=== PATIENT | female | born 2000 | race Caucasian/White ===

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

== ENCOUNTER 2022-03-29 13:33 | Emergency (ER) | payer MEDICAID, SELFPAY ==
[2022-03-29 14:08] VITALS: BP 109/54; PULSE 74; RESP 16; TEMP 36.9; O2SAT 99
--- NOTE | 2022-03-29 14:30 | DI.RAD_ITS ---
Exam(s) XR HIP LT COMPLETE AP PELVIS XR FEMUR LT EXAM: XR HIP LT COMPLETE AP PELVIS INDICATION: fall/trauma. COMPARISON: CR XR FEMUR LT from 03/29/2022 TECHNIQUE: 2D digital imaging was performed. AP and lateral views of femur. AP pelvis and frog-leg lateral view of the left hip. FINDINGS: There is no evidence of fracture or dislocation. The hip joint and knee joints appear intact. SI jori ints are unremarkable. Pubic symphysis is not widened. IMPRESSION: Negative pelvis and left femur. DATA REPOSITORY: RADIATION DOSE DELIVERED:
--- NOTE | 2022-03-29 14:36 | ED.GENADUL_ITS ---
Discharge Plan Disposition Patient Disposition: Home Condition: Stable Discharge Details Clinical Impression: Contusion of left hip and thigh Primary Care Provider: Unknown,Unknown ED Provider: Jose Casey Home Meds and New Rx's Prescriptions: Continued rizatriptan 10 mg tablet See Rx Instructions PO .COMPLEX Qty: 9 5RF Rx Instructions: take 1 tab at onset of headache; if no relief may repeat 1 tab after at least 2 hrs; max = 3 tabs/24 hr PO albuterol sulfate 1.25 mg/3 mL Solution For Nebulization 1.25 mg continuous nebulization PRN PRN albuterol sulfate [Ventolin HFA] 60 PUFF HFA aerosol inhaler 2 puff Inhalation PRN PRN doxycycline monohydrate 100 mg tablet 1 tab PO DAILY Label Comments: Take 2 tablet by mouth once a day nortriptyline 25 mg capsule 25 mg PO QHS Label Comments: TAKE 1 CAPSULE BY MOUTH EVERY DAY doxycycline monohydrate 100 mg tablet 100 mg PO DAILY Label Comments: Take 2 tablet by mouth once a day Rx Instructions: acne Discharge Instructions Instructions: Contusion in Adults (ED) Additional Instructions: You may continue to use [id number] acetaminophen or ibuprofen as needed for pain. You may apply ice to help with swelling. You may perform activities as tolerated by pain and discomfort but should rest over the next couple days and slowly increase activity as tolerated. If you have any significant worsening of symptoms feel free to return the emergency department and if not improving in the next 1 to 2 weeks follow-up with your primary care provider. Stand Alone Forms: Work Release Referrals: Primary Care Provider [Outside] Discharge Data Discharge Date/Time-TO BE ENTERED AT DEPARTURE: 03/29/22 15:36 Medical Decision Making Patient presenting to the emergency department for chief complaint of fall with injury to left hip and femur. Patient denies of any other injury or trauma. States she was at work and slipped on a wet floor. Physical exam shows significant tenderness to the lateral aspects of the hip and pelvis including the greater trochanter through the mid femur. Patient does have difficulty with weightbearing and range of motion. Suspect significant contusion or subtle fracture. We will perform radiological imaging. Pending results we will give ibuprofen. Review of radiological imaging and radiologist interpretation shows no acute findings noted. Patient was recommended to perform conservative management of discomfort, given work note, and discussed return and follow-up precautions. After discussion of diagnosis and plan of care patient has no further needs, questions, or concerns and states clear understanding to return to the emergency department for any worsening symptoms. This documentation was generated using [employer] dictation system, please disregard any oddities of phrase or misspellings. Imaging Data Radiologic Study: Imaging: X-Ray Radiologist's impression: Exam(s) XR HIP LT COMPLETE AP PELVIS XR FEMUR LT EXAM: XR HIP LT COMPLETE AP PELVIS INDICATION: fall/trauma. COMPARISON: CR XR FEMUR LT from 03/29/2022 TECHNIQUE: 2D digital imaging was performed. AP and lateral views of femur. AP pelvis and frog-leg lateral view of the left hip. FINDINGS: There is no evidence of fracture or dislocation. The hip joint and knee joints appear intact. SI joints are unremarkable. Pubic symphysis is not widened. IMPRESSION: Negative pelvis and left femur. HPI General Mode of arrival: ambulatory . Date/Time Provider Initiated Documentation: 03/29/22 14:15 . Limitations to Documentation: no limitations . Information obtained by: patient and RN notes reviewed . History of Present Ill tre 21 year old F presents to the emergency department with the chief complaint of Fall at work with left hip injury, described as moderate, with intensity rated at 8. Quality is described as sharp, and is localized to the left and lower extremity. Patient reports no radiation. Patient started experiencing this day(s) (1) and it has been constant. Immobilization impro ves symptom(s), and Rest improves symptom(s), Movement worsens symptoms . Patient notes no other symptoms.. Patient did receive the following treatments prior to arrival, none Related Data Home Medications Medication Instructions Recorded Confirmed albuterol sulfate 90 mcg/actuation 2 puff inhalation PRN PRN 07/05/16 03/29/22 aerosol inhaler (Ventolin HFA) albuterol sulfate 1.25 mg/3 mL 1.25 mg continuous nebulization 01/15/21 03/29/22 solution for nebulization PRN PRN rizatriptan 10 mg tablet See Rx Instructions PO .COMPLEX #9 07/19/21 03/29/22 tabs doxycycline monohydrate 100 mg 1 tab PO DAILY 09/30/21 11/20/21 tablet nortriptyline 25 mg capsule 25 mg PO QHS 09/30/21 11/20/21 doxycycline monohydrate 100 mg 100 mg PO DAILY 03/29/22 03/29/22 tablet Previous Rx's Medication Instructions Recorded rizatriptan 10 mg tablet See Rx Instructions PO .COMPLEX #9 07/19/21 tabs Allergies Allergy/AdvReac Type Severity Reaction Status Date / Time omeprazole AdvReac Intermediate Skin Rash Verified 03/29/22 14:12 and diarrhea enviromental Allergy Mild Uncoded 03/29/22 14:12 General Stated Complaint: Orthopedic MARY JANE: 4 Review of Systems Narrative: 8 systems reviewed and unremarkable except what is marked below. Musculoskeletal Musculoskeletal: Reports as per HPI, Reports arthralgias, Reports limited range of motion, Denies muscle weakness, Denies numbness and Denies tingling Neurologic Neurologic: Denies numbness and Denies tingling PFSH All Active Problems (Updated 03/29/22 @ 15:13 by Jose Casey NP) Contusion of left hip and thigh (Acute) Insomnia (Acute) Migraine headache without aura (Acute) Abdominal pain (Acute) Medical History Anxiety Asthma Chest pain Contusion of arm, left Ecchymosis of forearm Right ankle sprain Sprain of left shoulder Sprain of wrist, right Surgical History H/O esophagogastroduodenoscopy Family History Mother Heart disease Stroke Social History Smoking/Tobacco Use Status: Never Smoking risk assessment performed?: Yes Alcohol Intake: never Drug use: Never Substance use type: does not use Household members: family Number of Children: 0 Education Level: high school 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 Exam Const General: cooperative, no acute distress and not ill appearing Orientation: alert, awake and oriented x3 HENMT Mouth: moist mucous membranes Resp Effort & Inspection: normal respiratory effort, able to speak in complete sentences and no respiratory distress Auscultation: clear to auscultation bilaterally Cardio Rate: regular rate Rhythm: regular rhythm Heart Sounds: S1 normal and S2 normal Skin General skin exam: no rashes or lesions noted Neuro General: patient alert, patient awake, patient oriented x3, moves all extremities and no focal motor deficits Sensory Exam: no sensory deficits noted Extrem General: normal exam except as noted Left lower extremity: hip/thigh Details: tenderness Location: of the hip Location: laterally and over the great trochanter, of the proximal upper leg Location: laterally and of the mid upper leg Location: laterally and abnormal ROM Details: held in an abnormal fashion Details: in extension and pain with active ROM Details: with ADduction, with ABduction, with flexion and with internal rotation; no swelling, no ecchymosis and no crepitus, knee Details: normal to inspection and normal ROM; no tenderness, lower leg Details: normal to inspection and ankle Details: normal ROM; no tenderness Course Vital Signs Vital signs: Vital Signs Temperature 36.9 C 03/29/22 14:08 Pulse 74 03/29/22 14:08 Respiratory Rate 16 03/29/22 14:08 Blood Pressure 109/54 L 03/29/22 14:08 Pulse Oximetry 99 03/29/22 14:08 Temperature 36.9 C 03/29/22 14:08 Temperature Source Skin 03/29/22 14:08 Pulse 74 03/29/22 14:08 Respiratory Rate 16 03/29/22 14:08 Respiratory Effort 03/29/22 14:11 Blood Pressure 109/54 L 03/29/22 14:08 Pulse Oximetry 99 03/29/22 14:08 Oxygen Delivery Method Room Air 03/29/22 14:08 Oxygen Flow Rate 0 03/29/22 14:08 Pain Level 8 03/29/22 14:08 Lab/Test Results Lab/Test Results: POC- Test(urine) Negative
[2022-03-29] MEDS: Ibuprofen 600 MG TAB PO (14:40)
== END 2022-03-29 15:36 | disposition home or self-care (01) ==
PROVIDERS: Emergency Provider Nurse Practitioner Family
DX: S70.02XA Contusion of left hip, initial encounter (principal); S70.12XA Contusion of left thigh, initial encounter; W01.0XXA Fall on same level from slipping, tripping and stumbling without subsequent striking against object, initial encounter; Y99.0 Civilian activity done for income or pay
CPT/HCPCS: 73552; 81025; 99284; 73502

== ENCOUNTER 2022-05-10 23:09 | Emergency (ER) | payer MEDICAID, SELFPAY ==
[2022-05-10 23:13] VITALS: BP 112/75; PULSE 75; RESP 16; TEMP 36.6; O2SAT 98
--- NOTE | 2022-05-10 23:29 | W.ED.GENAD ---
Discharge Plan Disposition Patient Disposition: Home Discharge Details Clinical Impression: Hematochezia Primary Care Provider: Unknown,Unknown ED Provider: Flakito Hernandez Home Meds and New Rx's Prescriptions: Continued rizatriptan 10 mg tablet See Rx Instructions PO .COMPLEX Qty: 9 5RF Rx Instructions: take 1 tab at onset of headache; if no relief may repeat 1 tab after at least 2 hrs; max = 3 tabs/24 hr PO albuterol sulfate 1.25 mg/3 mL Solution For Nebulization 1.25 mg continuous nebulization PRN PRN albuterol sulfate [Ventolin HFA] 60 PUFF HFA aerosol inhaler 2 puff Inhalation PRN PRN nortriptyline 25 mg capsule 25 mg PO QHS Patient Comments: TAKE 1 CAPSULE BY MOUTH EVERY DAY No Action doxycycline monohydrate 100 mg tablet 1 tab PO DAILY Patient Comments: Take 2 tablet by mouth once a day doxycycline monohydrate 100 mg tablet 100 mg PO DAILY Patient Comments: Take 2 tablet by mouth once a day Rx Instructions: acne Discharge Instructions Instructions: Rectal Bleeding (ED) Additional Instructions: Home to rest this evening. Please follow-up with gastroenterology for results of your biopsies. Return if you have persistent rectal bleeding, develop a fever, increasing pain, or any other acute concerns. Your work-up in the emergency department had included laboratory analysis and CT imaging. Stand Alone Forms: Work Release Medical Decision Making 21-year-old female who has had some chronic abdominal pain. She underwent colonoscopy at [facility] on Sunday. She describes having 3 biopsies. No report of polyps. She developed crampy abdominal pain over the past 24 hours with passage of a single dark-colored blood clot and stool this afternoon. The patient arrives to the ER with normal vital signs. Exam reveals mild diffuse abdominal tenderness without rebound or guarding. Differential diagnosis would include perforation, infection, mild bleeding from known biopsy sites. Patient had screening laboratories obtained and was referred for CT imaging. Her CBC is normal with a white count of 7, hematocrit 42, platelets 316. Coags unremarkable as are chemistries. CT images: Show no acute findings in the abdomen or pelvis. Patient's pain is improved. She likely had a mild amount of postbiopsy bleeding that is now resolved. She is stable and appropriate for discharge to home. Findings of the work-up were discussed with the patient and her mother prior to discharge HPI General Mode of arrival: ambulatory. Date/Time Provider Initiated Documentation: 05/10/22 23:21. Limitations to Documentation: no limitations. Information obtained by: patient. History of Present Illness 21 year old F presents to the emergency department with the chief complaint of Rectal bleeding, described as mild, and is localized to the abdomen. Patient reports no radiation. Patient started experiencing this hour(s) and it has been intermittent. No relieving factors improve symptom(s), No exacerbating factors reported . Patient notes denies syncope and weakness. Patient did receive the following treatments prior to arrival, none Related Data Home Medications Medication Instructions Recorded Confirmed albuterol sulfate 90 mcg/actuation 2 puff inhalation PRN PRN 07/05/16 03/29/22 aerosol inhaler (Ventolin HFA) albuterol sulfate 1.25 mg/3 mL 1.25 mg continuous nebulization 01/15/21 03/29/22 solution for nebulization PRN PRN rizatriptan 10 mg tablet See Rx Instructions PO .COMPLEX #9 07/19/21 03/29/22 tabs doxycycline monohydrate 100 mg 1 tab PO DAILY 09/30/21 11/20/21 tablet nortriptyline 25 mg capsule 25 mg PO QHS 09/30/21 11/20/21 doxycycline monohydrate 100 mg 100 mg PO DAILY 03/29/22 03/29/22 tablet Previous Rx's Medication Instructions Recorded rizatriptan 10 mg tablet See Rx Instructions PO .COMPLEX #9 07/19/21 tabs Allergies Allergy/AdvReac Type Severity Reaction Status Date / Time omeprazole AdvReac Intermediate Skin Rash Verified 03/29/22 14:12 and diarrhea enviromental Allergy Mild Uncoded 03/29/22 14:12 General Stated Complaint: Abd Prob MARY JANE: 3 Review of Systems Narrative: 6 systems reviewed and otherwise negative PFSH All Active Problems (Updated 05/11/22 @ 03:18 by Flakito Hernandez MD) Hematochezia (Acute) Insomnia (Acute) Migraine headache without aura (Acute) Abdominal pain (Acute) Medical History Anxiety Asthma Chest pain Contusion of arm, left Ecchymosis of forearm Right ankle sprain Sprain of left shoulder Sprain of wrist, right Surgical History H/O esophagogastroduodenoscopy Family History Mother Heart disease Stroke Social History Smoking/Tobacco Use Status: Never Smoking risk assessment performed?: Yes Alcohol Intake: never Drug use: Never Substance use type: does not use Household members: family Number of Children: 0 Education Level: high school 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 Pleasant, well groomed, interactive. HEAD: Normocephalic, atraumatic ENT: Mucous membranes moist, oropharynx unremarkable, External ear exam unremarkable EYES: PERRL, EOMI NECK: Full ROM, no MARVIN, no menigismus CHEST/RESP: Nontender, clear to auscultation bilateral, no wheeze/rhonchi/rales CARDIOVASCULAR: RRR, no murmur, rub mary. 2+ Rad pulse bilateral ABDOMEN: Soft, mild diffuse tenderness, no mass. +Bowel sounds EXT: Full ROM, no edema, no rash Neuro: Grossly normal neurologic exam, conversant, interactive. Psych: Speech fluent, thoughts congruent, affect normal Course Vital Signs Vital signs: Vital Signs Temperature 36.6 C 05/10/22 23:13 Pulse 75 05/10/22 23:13 Respiratory Rate 16 05/10/22 23:13 Blood Pressure 112/75 05/10/22 23:13 Pulse Oximetry 98 05/10/22 23:13 Temperature 36.6 C 05/10/22 23:13 Temperature Source Oral 05/10/22 23:13 Pulse 75 05/10/22 23:13 Respiratory Rate 16 05/10/22 23:13 Respiratory Effort Normal, Non-Labored 05/10/22 23:17 Blood Pressure 112/75 05/10/22 23:13 Blood Pressure Position Sitting 05/10/22 23:13 Pulse Oximetry 98 05/10/22 23:13 Oxygen Delivery Method Room Air 05/10/22 23:13 Oxygen Flow Rate 0 05/10/22 23:13 Pain Level 7 05/10/22 23:13
[2022-05-11] MEDS: Normal Saline 1,000 ML 125 ML IV (00:34)
[2022-05-11 00:45] LABS: Abs Immature Grans 0.01 10^3/uL (0.0-0.06); Absolute Basophil Count 0.04 10^3/uL (0.0-0.2); Absolute Eosinophil Count 0.06 10^3/uL (0.0-0.7); Absolute Lymphocyte Count 3.17 10^3/uL (1.2-3.4); Absolute Monocyte Count 0.47 10^3/uL (0.1-0.8); Absolute Neutrophil Count 3.71 10^3/uL (1.2-6.7); Basophils % 0.5; Eosinophils % 0.8; HCT 42.7 % (36.0-46.0); HGB 14.9 g/dL (11.2-15.7); Immature Grans % 0.1; Lymphocytes % 42.5; MCH 29.5 pg (27.0-33.0); MCHC 34.9 % (32.0-36.0); MCV 85 fL (80-95); MPV 9.2 fL (8.0-11.0); Monocytes % 6.3; Neutrophils % 49.8; Platelet Count 316 10^3/uL (130-400); RBC 5.05 10^6/uL (3.93-5.22); RDW 11.9 % (11.7-14.6); RDW-SD 35.9 fL; WBC 7.46 10^3/uL (4.4-10.8)
--- NOTE | 2022-05-11 00:45 | DI.CT_ITS ---
Exam(s) CT ABDOMEN PELVIS W EXAM: CT ABDOMEN PELVIS W CLINICAL HISTORY: Pain, hematochezia after [place]/biopsy. TECHNIQUE: Imaging Protocol: Axial computed tomography images with coronal and sagittal reformatted images were created and reviewed CONTRAST MATERIAL: Intravenous: Omnipaque-350 100cc Oral: None COMPARISON: CT CT ABDOMEN PELVIS W from 07/05/2021 FINDINGS: VISUALIZED LUNG BASES: No nodules nor pleural effusions evident. ABDOMEN: There is no ascites. LIVER: There are no focal hepatic lesions evident. No dilated intrahepatic ducts. GALLBLADDER/BILIARY: No obvious gallbladder pathology. CBD is not dilated. PANCREAS: No evidence of pancreatic mass nor dilatation of the pancreatic duct. SPLEEN: Spleen is not enlarged. No obvious intrasplenic lesions. Splenic and portal veins are paten t. ADRENALS: There are no significant adrenal masses. KIDNEYS:No cysts evident. No solid renal masses. No calculi nor hydronephrosis.. ABDOMINAL AORTA: Abdominal aorta is not enlarged. LYMPH NODES:There is no retroperitoneal nor paraaortic adenopathy. ABDOMINAL WALL: No evidence of significant anterior abdominal wall nor inguinal hernia. GI: There is no evidence of bowel obstruction, free air, nor abscess. PELVIS: GI: No evidence of appendicitis.No evidence of sigmoid diverticulitis. LYMPH NODES: There is no intrapelvic nor inguinal adenopathy. REPRODUCTIVE: Uterus size normal. Left ovary unremarkable. There is a cyst in the right ovary measu ring 1.8 x 1.6 cm. Probably follicular. There is a small amount of free fluid in the cul-de-sac. URINARY BLADDER: No calculi nor obvious masses evident OSSEOUS: No fractures and no significant osseous lesions. IMPRESSION: 1. There is a dominant follicular cyst in the right ovary measuring approximately 1.8 cm. Small amou nt of fluid in the cul-de-sac. No other adnexal findings. 2. No evidence of acute appendicitis. No diverticulitis. First read by [facility] RADIATION DOSE DELIVERED: 850.7mGy.cm Total DLP DATA REPOSITORY: All CT scans at this facility are submitted to the National Radiology Data Registry (NRDR) Dose Index Registry (DIR) with the [employer] (ACR). RADIATION OPTIMIZATION: All CT scans at this facility use at least one of these dose optimization te chniques: automated exposure control; mA and/or kV adjustment per patient size (includes targeted exa ms where dose is matched to clinical indication); or iterative reconstruction.
[2022-05-11 01:00] LABS: INR 0.9 (0.9-1.1); Prothrombin Time 9.5 sec (9.3-11.0)
[2022-05-11 01:02] LABS: ALT 34 U/L (14-59); AST 28 U/L (15-37); Albumin 4.3 g/dL (3.4-5.0); Alkaline Phosphatase 67 U/L (46-116); Anion Gap 8.5 mmol/L (3-11); BUN 14 mg/dL (7-18); Bilirubin, Total 0.2 mg/dL (0.2-1.0); CO2 26.5 mmol/L (21.0-32.0); CREATININE 0.8 mg/dL (0.55-1.02); Calcium 9.1 mg/dL (8.5-10.1); Chloride 101 mmol/L (98-107); Estimated GFR 108.78 (mL/min/1.73m2); Glucose 95 mg/dL (74-106); Magnesium 2.1 mg/dL (1.8-2.4); Potassium 3.7 mmol/L (3.5-5.1); Sodium 136 mmol/L (136-145); Total Protein 8.2 g/dL (6.4-8.2)
[2022-05-11] MEDS: MORPHine 10 MG/ML VIAL 2 MG IVP (01:10)
[2022-05-11] MEDS: diphenhydrAMINE 50 MG/ML VIAL 12.5 MG IVP (01:11)
[2022-05-11 01:29] LABS: Bilirubin Negative (Negative); Blood Small (Negative); Clarity Clear (Clear); Glucose Negative (Negative); Ketones Negative (Negative); Leukocyte Esterase Negative (Negative); Nitrite Negative (Negative); Urobilinogen 0.2 EU/dL (Up TO 0.2)
[2022-05-11 01:38] LABS: Bacteria Rare HPF (Negative); C & S Indicated? No; Epithelial Cells Few HPF (Negative); RBC 0-2 HPF (0-2); WBC 0-2 HPF (0-5)
[2022-05-11] MEDS: Normal Saline - Diluent 50 ML VIAL IJ (01:53)
[2022-05-11] MEDS: Omnipaque 350 MG/ML 100 ML BTL 90 ML IJ (01:59)
[2022-05-11] MEDS: Normal Saline Flush 10 ML SYR IVP (02:00)
--- NOTE | 2022-05-11 03:10 | DI.VRAD_ITS ---
PROCEDURE INFORMATION: Exam: CT Abdomen And Pelvis With Contrast Date and time: 05/11/2022 1:46 AM Exam date and time: 05/11/2022 1:46 AM Age: 21 years old Clinical indication: Other: Pain, hematochezia after [place]o/biopsy; Patient HX: Colonoscopy Sunday TECHNIQUE: Imaging protocol: Computed tomography of the abdomen and pelvis with contrast. Contrast material: OMNIPAQUE 350; Contrast volume: 90 ml; Contrast route: INTRAVENOUS (IV); COMPARISON: CT ABDOMEN PELVIS W 07/05/2021 12:40 PM FINDINGS: Liver: Normal. No mass. Gallbladder and bile ducts: Normal. No calcified stones. No ductal dilation. Pancreas: Normal. No ductal dilation. Spleen: Normal. No splenomegaly. Adrenal glands: Normal. No mass. Kidneys and ureters: Normal. No hydronephrosis. Stomach and bowel: No dilated loops of small bowel or colonic dilatation. Appendix: Normal appendix. Intraperitoneal space: No free intraperitoneal gas. Trace pelvic ascites. Vasculature: Unremarkable. No abdominal aortic aneurysm. Lymph nodes: Unremarkable. No enlarged lymph nodes. Urinary bladder: Unremarkable as visualized. Reproductive: Prominent follicle or small cyst measuring 1.5 cm in right ovary. Anteverted uterus. Bones/joints: Unremarkable. No acute fracture. Soft tissues: Unremarkable. IMPRESSION: 1. Trace, nonspecific pelvic ascites. 2. Prominent follicle or small cyst in right ovary. Dictated and Authenticated by: Viktor Almaguer MD. Ordering:BRET Fraga MD
[2022-05-11 03:35] VITALS: BP 101/66; PULSE 72; RESP 16; TEMP 36.7; O2SAT 97
== END 2022-05-11 03:44 | disposition home or self-care (01) ==
PROVIDERS: Emergency Provider Emergency Medicine
DX: K92.1 Melena (principal); J45.909 Unspecified asthma, uncomplicated
CPT/HCPCS: 80053; 81025; 96361; 96374; 96375; 96376; 99285; 74177; 81003; 81015; 83735; 85025; 85610; 85730; 99284; J1200; J2270; J3490

== ENCOUNTER 2022-06-08 13:03 | Emergency (ER) | payer MEDICAID, SELFPAY ==
[2022-06-08 13:12] VITALS: BP 111/77; PULSE 117; RESP 98; TEMP 36.9; O2SAT 98
[2022-06-08 16:13] LABS: Abs Immature Grans 0.01 10^3/uL (0.0-0.06); Absolute Basophil Count 0.04 10^3/uL (0.0-0.2); Absolute Eosinophil Count 0.08 10^3/uL (0.0-0.7); Absolute Lymphocyte Count 1.33 10^3/uL (1.2-3.4); Absolute Monocyte Count 0.56 10^3/uL (0.1-0.8); Absolute Neutrophil Count 3.91 10^3/uL (1.2-6.7); Basophils % 0.7; Eosinophils % 1.3; HCT 41.2 % (36.0-46.0); HGB 14.7 g/dL (11.2-15.7); Immature Grans % 0.2; Lymphocytes % 22.4; MCH 29.8 pg (27.0-33.0); MCHC 35.7 % (32.0-36.0); MCV 83 fL (80-95); MPV 9.4 fL (8.0-11.0); Monocytes % 9.4; Platelet Count 244 10^3/uL (130-400); RBC 4.94 10^6/uL (3.93-5.22); RDW 12.1 % (11.7-14.6); RDW-SD 36.6 fL; WBC 5.93 10^3/uL (4.4-10.8)
[2022-06-08] MEDS: Normal Saline 1,000 ML 1000 ML IV (16:13)
[2022-06-08] MEDS: Ondansetron 4 MG/2 ML VIAL IVP (16:14)
--- NOTE | 2022-06-08 16:17 | ED.GENADUL_ITS ---
Discharge Plan Disposition Patient Disposition: Home Discharge Details Clinical Impression: URI (upper respiratory infection) Primary Care Provider: JOSE ALEJANDRO MARIE ED Provider: Kim Royal Home Meds and New Rx's Prescriptions: Continued rizatriptan 10 mg tablet See Rx Instructions PO .COMPLEX Qty: 9 5RF Patient Comments: patient states does not take. Rx Instructions: take 1 tab at onset of headache; if no relief may repeat 1 tab after at least 2 hrs; max = 3 tabs/24 hr PO albuterol sulfate 1.25 mg/3 mL Solution For Nebulization 1.25 mg continuous nebulization PRN PRN albuterol sulfate [Ventolin HFA] 60 PUFF HFA aerosol inhaler 2 puff Inhalation PRN PRN doxycycline monohydrate 100 mg tablet 1 tab PO DAILY Patient Comments: patient states does not take. nortriptyline 25 mg capsule 25 mg PO QHS Patient Comments: patient states does not take. doxycycline monohydrate 100 mg tablet 100 mg PO DAILY Patient Comments: patient states does not take. Rx Instructions: acne Discharge Instructions Instructions: Upper Respiratory Infection (ED) Additional Instructions: Increase fluid hydration, at least ten 8 ounce glasses of water daily Mucinex DM use inhaler 2 puffs every 4-6 hours as needed for shortness of breath and cough return earlier with new or worsening complaints Stand Alone Forms: Work Release Referrals: JOSE ALEJANDRO MARIE GENERAL TECHNICIAN [Primary Care Provider] - Discharge Data Discharge Date/Time-TO BE ENTERED AT DEPARTURE: 06/08/22 18:08 Medical Decision Making <Jose Casey NP - Last Filed: 06/17/22 11:24> Patient presenting to the emergency department for chief complaint of subjective fever, nasal congestion, postnasal drip, sore throat, cough, body aches, nausea vomiting. Patient states that she has been having difficulty tolerating any p.o. intake and feels dehydrated. She has done Home COVID testing which was negative. Denies stiff neck, rash, chest pain or difficulty breathing. HEENT exam shows audible nasal congestion but otherwise unremarkable, tachycardia noted on physical exam otherwise clear lung sounds and remainder of exam benign. Suspect viral illness but given that patient is not tolerating p.o. intake and has had some vomiting will perform labs for electrolyte abnormality but have high suspicion of viral illness. We will also perform viral pathogen swab. Pen ding results we will give patient IV fluids and Toradol along with Zofran <RICK Trinh - Last Filed: 06/08/22 22:29> Patient presenting to the emergency department for chief complaint of subjective fever, nasal congestion, postnasal drip, sore throat, cough, body aches, nausea vomiting. Patient states that she has been having difficulty tolerating any p.o. intake and feels dehydrated. She has done Home COVID testing which was negative. Denies stiff neck, rash, chest pain or difficulty breathing. HEENT exam shows audible nasal congestion but otherwise unremarkable, tachycardia noted on physical exam otherwise clear lung sounds and remainder of exam benign. Suspect viral illness but given that patient is not tolerating p.o. intake and has had some vomiting will perform labs for electrolyte abnormality but have high suspicion of viral illness. We will also perform viral pathogen swab. Pending results we will give patient IV fluids and Toradol along with Zofran LB: 1600 care was accepted and transition from Mauro Casey, nurse petitioner pending labs and reassessment On reassessment, patient is calm and in no acute distress She says she feels improvement and her vitals have improved specifically her tachycardia Low clinical suspicion for PE, no hypoxia or tachypnea Given inhaler, steroid, and [id number] medications encouraged Return precautions reviewed and patient expressed understanding Diagnostic labs do not show evidence of acute abnormality HPI <Jose Casey NP - Last Filed: 06/17/22 11:24> General Mode of arrival: ambulatory . Date/Time Provider Initiated Documentation: 06/08/22 13:37 . Limitations to Documentation: no limitations . Information obtained by: patient and family . History of Present Illness 21 year old F presents to the emergency department with the chief complaint of Nasal congestion, cough, postnasal drainage, nausea vomiting, described as moderate, Quality is described as aching, Patient started experiencing this day(s) (4) and it has been constant. No relieving factors improve symptom(s), No exacerbating factors reported . Patient did receive the following treatments prior to arrival, none Related Data Home Medications Medication Instructions Recorded Confirmed albuterol sulfate 90 mcg/actuation 2 puff inhalation PRN PRN 07/05/16 06/08/22 aerosol inhaler (Ventolin HFA) albuterol sulfate 1.25 mg/3 mL 1.25 mg continuous nebulization 01/15/21 06/08/22 solution for nebulization PRN PRN rizatriptan 10 mg tablet See Rx Instructions PO .COMPLEX #9 07/19/21 03/29/22 tabs doxycycline monohydrate 100 mg 1 tab PO DAILY 09/30/21 11/20/21 tablet nortriptyline 25 mg capsule 25 mg PO QHS 09/30/21 11/20/21 doxycycline monohydrate 100 mg 100 mg PO DAILY 03/29/22 03/29/22 tablet Previous Rx's Medication Instructions Recorded rizatriptan 10 mg tablet See Rx Instructions PO .COMPLEX #9 07/19/21 tabs Allergies Allergy/AdvReac Type Severity Reaction Status Date / Time omeprazole AdvReac Intermediate Skin Rash Verified 03/29/22 14:12 and diarrhea promethazine AdvReac Other (See Unverified 06/08/22 15:08 Comment) enviromental Allergy Mild Uncoded 03/29/22 14:12 General Stated Complaint: RespSymp MARY JANE: 3 Review of Systems <Jose Casey NP - Last Filed: 06/17/22 11:24> Constitutional Constitutional: Reports body ache(s), Reports chills, Reports fever(s), Reports headache(s) and Reports malaise Eyes Eyes: Denies eye discharge ENT Ears, Nose, Mouth, and Throat: Reports as per HPI, Denies ear discharge, Denies otalgia, Reports headache(s), Reports nasal congestion, Reports nasal discharge, Denies neck pain, Reports post nasal drip, Reports sore throat and Denies throat swelling Cardiovascular Cardiovascular: Denies chest pain and Denies dyspnea Respiratory Respiratory: Reports cough and Denies dyspnea Gastrointestinal Gastrointestinal: Denies abdominal pain, Reports nausea and Reports vomiting Musculoskeletal Musculoskeletal: Denies joint swelling and Denies neck pain Integumentary/Breasts Skin/Breast: Denies rash Neurologic Neurologic: Reports headache(s) Allergic/Immunologic Allergic/Immunologic: Denies throat swelling PFSH <Jose Casey NP - Last Filed: 06/17/22 11:24> All Active Problems (Updated 06/11/22 @ 00:13 by GISELE BELL) URI (upper respiratory infection) (Acute) Insomnia (Acute) Migraine headache without aura (Acute) Abdominal pain (Acute) Medical History Anxiety Asthma Chest pain Contusion of arm, left Ecchymosis of forearm Right ankle sprain Sprain of left shoulder Sprain of wrist, right Surgical History H/O esophagogastroduodenoscopy Family History Mother Heart disease Stroke Social History Smoking/Tobacco Use Status: Never Smoking risk assessment performed?: Yes Alcohol Intake: never Drug use: Never Substance use type: does not use Household members: family Number of Children: 0 Education Level: high school 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 Exam <Jose Casey NP - Last Filed: 06/17/22 11:24> Const General: cooperative, comfortable and no acute distress Orientation: alert and awake HENMT Head: normal to inspection, normocephalic and atraumatic Ears: hearing grossly normal bilaterally and TM's normal bilaterally General nose exam: external nose normal Face and sinus: no erythema Mouth: oral mucosae normal, no drooling, no muffled voice and no trismus Throat: posterior oropharynx normal Neck Neck: normal visual inspection, full ROM, no lymphadenopathy, no meningeal signs, trachea midline and supple Resp Effort & Inspection: normal respiratory effort and able to speak in complete sentences Auscultation: clear to auscultation bilaterally Cardio Rate: regular rate Rhythm: regular rhythm Heart Sounds: S1 normal, S2 normal, normal S1 and S2, no click, no gallops, no murmurs and no rubs Skin General skin exam: no rashes or lesions noted and dry skin (warm) Neuro General: patient alert, patient awake, patient oriented x3, gait normal and moves all extremities Cognition: normal cognition Speech: speech normal Course <Jose Casey NP - Last Filed: 06/17/22 11:24> Vital Signs Vital signs: Vital Signs Temperature 36.9 C 06/08/22 13:12 Pulse 117 H 06/08/22 13:12 Respiratory Rate 98 H 06/08/22 13:12 Blood Pressure 111/77 06/08/22 13:12 Pulse Oximetry 98 06/08/22 13:12 Temperature 36.9 C 06/08/22 13:12 Temperature Source Oral 06/08/22 13:12 Pulse 117 H 06/08/22 13:12 Respiratory Rate 98 H 06/08/22 13:12 Respiratory Effort Normal, Non-Labored 06/08/22 15:11 Respiratory Depth Normal 06/08/22 15:11 Blood Pressure 111/77 06/08/22 13:12 Blood Pressure Position Sitting 06/08/22 13:12 Pulse Oximetry 98 06/08/22 13:12 Oxygen Delivery Method Room Air 06/08/22 13:12 Oxygen Flow Rate 0 06/08/22 13:12 Pain Level 6 06/08/22 13:12 Lab/Test Results Lab/Test Results: Laboratory Tests Range/Units 06/08/22 16:05 WBC (4.4-10.8) 10^3/uL 5.93 RBC (3.93-5.22) 10^6/uL 4.94 Hgb (11.2-15.7) g/dL 14.7 Hct (36.0-46.0) % 41.2 MCV (80-95) fL 83 MCH (27.0-33.0) pg 29.8 MCHC (32.0-36.0) % 35.7 RDW (11.7-14.6) % 12.1 Plt Count (130-400) 10^3/uL 244 MPV (8.0-11.0) fL 9.4 Immature Gran % 0.2 Neutrophils % 66.0 Lymphocytes % 22.4 Monocytes % 9.4 Eosinophils % 1.3 Basophils % 0.7 Nucleated RBC % (0.0-0.3) % 0.0 Absolute Neutrophils (1.2-6.7) 10^3/uL 3.91 Absolute Lymphocytes (1.2-3.4) 10^3/uL 1.33 Absolute Monocytes (0.1-0.8) 10^3/uL 0.56 Absolute Eosinophils (0.0-0.7) 10^3/uL 0.08 Absolute Basophils (0.0-0.2) 10^3/uL 0.04 POC- Test(urine) Negative Sign Out <Jose Casey NP - Last Filed: 06/17/22 11:24> Sign Out Data: Sign Out Comment: Patient pending results of viral swab CMP and completion of fluids along with reassessment prior to disposition for high likelihood of viral illness. Last updated by Jose Casey NP at 06/08/22 16:29
[2022-06-08 16:36] LABS: ALT 24 U/L (14-59); AST 22 U/L (15-37); Albumin 4.1 g/dL (3.4-5.0); Alkaline Phosphatase 65 U/L (46-116); Anion Gap 8.4 mmol/L (3-11); BUN 15 mg/dL (7-18); Bilirubin, Total 0.2 mg/dL (0.2-1.0); CO2 26.6 mmol/L (21.0-32.0); CREATININE 0.6 mg/dL (0.55-1.02); Calcium 8.8 mg/dL (8.5-10.1); Chloride 102 mmol/L (98-107); Estimated GFR 132.52 (mL/min/1.73m2); Glucose 110 mg/dL (74-106); Potassium 3.9 mmol/L (3.5-5.1); Sodium 137 mmol/L (136-145); Total Protein 7.7 g/dL (6.4-8.2)
[2022-06-08 16:46] LABS: COVID-19 PCR Negative (Negative); Influenza A PCR Negative (Negative); Influenza B PCR Negative (Negative); RSV PCR Negative (Negative)
[2022-06-08 16:47] LABS: Source Nasopharynx
[2022-06-08] MEDS: Dexamethasone 10 MG/ML VIAL PO (17:57)
[2022-06-08] MEDS: Albuterol HFA 8 GM 60 PUFF INH IH (17:58)
[2022-06-08 18:01] VITALS: BP 116/65; PULSE 94; RESP 16; O2SAT 96
== END 2022-06-08 18:08 | disposition home or self-care (01) ==
PROVIDERS: Nurse Practitioner Family; Emergency Provider Physician Assistant; PCP Nurse Practitioner Family
DX: J06.9 Acute upper respiratory infection, unspecified (principal); R11.10 Vomiting, unspecified; R00.0 Tachycardia, unspecified
CPT/HCPCS: 80053; 81025; 87637; 96361; 96374; 99284; 85025; 99283; J1100; J2405

== ENCOUNTER 2022-10-05 23:09 | Emergency (ER) | payer MEDICAID, SELFPAY ==
[2022-10-05 23:21] VITALS: BP 114/76; PULSE 135; RESP 16; TEMP 37.5; O2SAT 98
[2022-10-06] VITALS (41 sets, daily range): BP systolic 101–122; BP diastolic 57–90; PULSE 75–146; RESP 12–27; TEMP 37.1–38.1; O2SAT 95–100
[2022-10-06] MEDS: Normal Saline 1,000 ML 1000 ML IV
[2022-10-06] MEDS: Ondansetron 4 MG/2 ML VIAL (00:02)
--- NOTE | 2022-10-06 01:10 | ED.GENADUL_ITS ---
Discharge Plan Disposition Patient Disposition: Home Discharge Details Clinical Impression: Back pain, Abdominal pain, Septate uterus Primary Care Provider: JOSE ALEJANDRO MARIE ED Provider: Renee Epstein Home Meds and New Rx's Prescriptions: No Action rizatriptan 10 mg tablet See Rx Instructions PO .COMPLEX Qty: 9 5RF Patient Comments: patient states does not take. Rx Instructions: take 1 tab at onset of headache; if no relief may repeat 1 tab after at least 2 hrs; max = 3 tabs/24 hr PO albuterol sulfate 1.25 mg/3 mL Solution For Nebulization 1.25 mg continuous nebulization PRN PRN albuterol sulfate [Ventolin HFA] 60 PUFF HFA aerosol inhaler 2 puff Inhalation PRN PRN nortriptyline 25 mg capsule 25 mg PO QHS Patient Comments: patient states does not take. Discharge Instructions Instructions: Abdominal Pain (ED), Back Pain (ED) Additional Instructions: Call your primary care provider for a follow-up appointment and recheck of symptoms. You should receive a phone call from [facility] with a follow-up appointment. Return here for any new or worrisome symptoms such as numbness and/or tingling around the genital/buttocks area, recurrent or worsening abdominal pain, fever, chills, problems controlling bowels or bladder, or any concerns. Alternate 1000 mg of acetaminophen every 3 hours, with 400 to 600 mg of ibuprofen as needed for pain. Discharge Data Discharge Date/Time-TO BE ENTERED AT DEPARTURE: 10/06/22 06:26 Discharge Physician: Renee Epstein Medical Decision Making This is a healthy 21-year-old with multiple medical visits who presents with suprapubic abdominal pain and low back pain, nausea and vomiting. She has a reassuring neurologic exam. Her vomiting has subsided my plan is to obtain blood work and a CT of the chest abdomen and pelvis to rule out intra abdominal pathology. We will give her IV fluids and nonnarcotic analgesia Differential Diagnosis Differential Diagnosis: Abdominal pain (nonspecific), cyclic vomiting, appendicitis, ovarian torsio Imaging Data Radiologic Study: Imaging: CT Scan Radiologist's impression: CT of the chest abdomen and pelvis with IV contrast interpreted by Emerita montemayor demonstrates a possible septate uterus in addition, impression: #1 no acute findings to explain reported symptoms. #2 nonacute findings as outlined above. #3 additional studies dictated separately Lab Data Lab results reviewed: Yes I reviewed the patient's lab results. Lab results narrative: Please see above HPI General Date/Time Provider Initiated Documentation: 10/06/22 01:10 . History of Present Illness described as severe and similar to prior episodes, HPI Narrative: The patient is a healthy 21-year-old female who presents with nausea and vomiting and headache. She told the nursing staff that she was also having diarrhea she denied any diarrhea to me. She states that her main complaint is b ack pain which began as abdominal pain and now it is primarily back pain. She denies any trauma or foreign travel. She stated that this was new in onset, although on her past medical record she is had a prior CT scan of the abdomen and pelvis on July 07, 2021 and had a formal right upper quadrant ultrasound in March 2021, a negative HIDA scan in April 2021, and a CT of the abdomen and pelvis in April of this year. She denies any overuse of nonsteroidal anti- inflammatories. She denies any trauma fevers or chills. She denies any other aggravating or alleviating factors. She was crying and was reluctant to give many details to me initially. She states she has never been and has regular menses. Related Data Home Medications Medication Instructions Recorded Confirmed albuterol sulfate 90 mcg/actuation 2 puff inhalation PRN PRN 07/05/16 06/08/22 aerosol inhaler (Ventolin HFA) albuterol sulfate 1.25 mg/3 mL 1.25 mg continuous nebulization 01/15/21 06/08/22 solution for nebulization PRN PRN rizatriptan 10 mg tablet See Rx Instructions PO .COMPLEX #9 07/19/21 03/29/22 tabs nortriptyline 25 mg capsule 25 mg PO QHS 09/30/21 11/20/21 Previous Rx's Medication Instructions Recorded rizatriptan 10 mg tablet See Rx Instructions PO .COMPLEX #9 07/19/21 tabs Allergies Allergy/AdvReac Type Severity Reaction Status Date / Time omeprazole AdvReac Intermediate Skin Rash Verified 10/05/22 23:26 and diarrhea promethazine AdvReac panic Unverified 10/06/22 05:44 enviromental Allergy Mild Uncoded 10/05/22 23:26 General Stated Complaint: Nausea/Vomit/Diar MARY JANE: 3 Review of Systems Constitutional Constitutional: Denies fever(s) and Denies weight loss Musculoskeletal Comments: Positive for back pain. No saddle anesthesia, no numbness tingling or weakness PFSH All Active Problems Back pain (Acute) Abdominal pain (Acute) Septate uterus (Acute) Insomnia (Acute) Migraine headache without aura (Acute) Abdominal pain (Acute) Medical History Anxiety Asthma Chest pain Contusion of arm, left Ecchymosis of forearm Right ankle sprain Sprain of left shoulder Sprain of wrist, right Surgical History H/O esophagogastroduodenoscopy Family History Mother Heart disease Stroke Social History Smoking/Tobacco Use Status: Never Smoking risk assessment performed?: Yes Alcohol Intake: never Drug use: Never Substance use type: does not use Household members: family Number of Children: 0 Education Level: high school 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 Exam Const General: cooperative, healthy appearing, well developed, well groomed and well hydrated Nutritional Appearance: average body habitus and well nourished Orientation: alert, awake and oriented x3 Other: The patient was initially tearful and appeared uncomfortable. HENID Head: normal to inspection, normocephalic and atraumatic Ears: hearing grossly normal bilaterally and external ears normal General nose exam: external nose normal and no nasal discharge Face and sinus: normal facial exam Mouth: moist mucous membranes and other (Normal phonation) Eyes General: appearance normal, both eyes and all related structures Pupils: PERRL EOM: EOM intact bilaterally Neck Neck: normal visual inspection and full ROM Chest Chest: normal inspection of the chest Resp Effort & Inspection: normal respiratory effort and able to speak in complete sentences Other: No retractions or nasal flaring. She has a slight prolongation of expiratory phase and occasional end expiratory wheezing Cardio Rate: regular rate Rhythm: regular rhythm Heart Sounds: S1 normal and S2 normal GI Inspection: normal to inspection and non-distended Palpation: soft Other: The patient's abdomen is soft. She has mild right lower quadrant and suprapubic tenderness. There is no rebound guarding or masses. No pulsatile masses or bruits. No fluid wave. Normal active bowel sounds. Back/Spine/Pelvis Back: no CVA tenderness Cervical Spine: normal cervical lordosis Thoracic/Lumbar Spine: thoracic and lumbar spine normal to inspection Skin General skin exam: no rashes or lesions noted, turgor normal, no petechiae and no purpura Rashes: no rashes Trauma: no lacerations or abrasions Neuro General: patient alert, patient awake, patient oriented x3, no meningeal signs, no focal motor deficits and CN's II-XI intact bilaterally Cranial Nerves: CN's II-XI intact bilaterally Cognition: normal cognition Speech: speech normal Gait: normal gait Motor: muscle tone normal throughout Sensory Exam: no sensory deficits noted Extrem General: normal to inspection, full ROM, capillary refill normal and normal exam except as noted Psych Appearance: grossly normal Affect: normal affect Attitude: cooperative Insight: insight good Judgment: judgment good Other: The patient appears to have capacity make medical decisions. Course Reevaluation(s) Initial Evaluation: The patient was improved after IV fluids and Zofran. She did not have any vomiting while in the department and could take p.o. prior to discharge. At the time of discharge she was comfortable and in no acute distress. Vital Signs Vital signs: Vital Signs Temperature 37.5 C 10/05/22 23:21 Pulse 135 H 10/05/22 23:21 Respiratory Rate 16 10/05/22 23:21 Blood Pressure 114/76 10/05/22 23:21 Pulse Oximetry 98 10/05/22 23:21 Temperature 37.5 C 10/05/22 23:21 Temperature Source Temporal Artery Scan 10/05/22 23:21 Pulse 135 H 10/05/22 23:21 Respiratory Rate 16 10/05/22 23:21 Respiratory Effort Normal 10/05/22 23:21 Blood Pressure 114/76 10/05/22 23:21 Blood Pressure Position Supine 10/05/22 23:21 Pulse Oximetry 98 10/05/22 23:21 Oxygen Delivery Method Room Air 10/05/22 23:21 Oxygen Flow Rate 0 10/05/22 23:21 Lab/Test Results Lab/Test Results: Slight leukopenia with a white count of 4.36. Normal H&H. No significant left shift. Normal coagulation studies. CMP was significant for mild hyperprote inemia. She was not . Her urine demonstrated significant ketones. There was no blood leukocyte esterase or nitrites.
--- NOTE | 2022-10-06 01:15 | ED.GENADUL_ITS ---
Discharge Plan Disposition Patient Disposition: Home Discharge Details Clinical Impression: Back pain, Abdominal pain, Septate uterus Primary Care Provider: JOSE ALEJANDRO MARIE ED Provider: Renee Epstein Home Meds and New Rx's Prescriptions: No Action rizatriptan 10 mg tablet See Rx Instructions PO .COMPLEX Qty: 9 5RF Patient Comments: patient states does not take. Rx Instructions: take 1 tab at onset of headache; if no relief may repeat 1 tab after at least 2 hrs; max = 3 tabs/24 hr PO albuterol sulfate 1.25 mg/3 mL Solution For Nebulization 1.25 mg continuous nebulization PRN PRN albuterol sulfate [Ventolin HFA] 60 PUFF HFA aerosol inhaler 2 puff Inhalation PRN PRN nortriptyline 25 mg capsule 25 mg PO QHS Patient Comments: patient states does not take. Discharge Instructions Instructions: Abdominal Pain (ED), Back Pain (ED) Additional Instructions: Call your primary care provider for a follow-up appointment and recheck of symptoms. You should receive a phone call from [facility] [facility] with a follow-up appointment. Return here for any new or worrisome symptoms such as numbness and/or tingling around the genital/buttocks area, recurrent or worsening abdominal pain, fever, chills, problems controlling bowels or bladder, or any concerns. Alternate 1000 mg of acetaminophen every 3 hours, with 400 to 600 mg of ibuprofen as needed for pain. Discharge Data Discharge Date/Time-TO BE ENTERED AT DEPARTURE: 10/06/22 06:26 Discharge Physician: eRnee Epstein Medical Decision Making This is a 21-year-old female who presents with 1 to 2 days of epigastric pain radiating to her back. She denies any saddle anesthesia, trauma, bowel or bladder incontinence or retention. Her neurologic exam is reassuring and her previous work-up includes a HIDA scan and ultrasound effectively ruling out biliary disease. Other considerations are peptic ulcer disease pancreatitis, hepatitis, mesenteric adenitis, or gynecologic etiology. Her main complaint right now is of back pain. My plan is to obtain blood work in including a CBC comprehensive metabolic panel and lipase to rule out pancreatitis. I will order a CT scans of the chest abdomen and pelvis. She is bronchospastic and wheezing and I will order a DuoNeb. Other considerations are also pulmonary emboli or bacterial pneumonia. She has not had a fever and does not have pleuritic chest pain. We will check to make sure she is not prior to CT scans we will also check her renal function, electrolytes and LFTs. I will order analgesics. She was requesting that ketorolac be given IM. She said that is the only way she can take it and was requesting it by name. Differential Diagnosis Differential Diagnosis: Pneumonia, PE, musculoskeletal back pain, radicular pain, gastritis, PUD Medical Records Medical records reviewed: Yes I reviewed the patient's medical records. Imaging Data Radiologic Study: Imaging: CT Scan (CTA chest with contrast.) Radiologist's impression: vRad impression: #1 no acute findings to explain reported symptoms, within the limitations noted above. #2 additional studies dictated separately. Radiologic Study #2: Imaging: CT Scan (CT abdomen and pelvis with IV contrast) Radiologist's impression: View impression: #1 no acute findings to explain reported symptoms. #2 nonacute findings as outlined above (septate uterus). #3 additional studies dictated separately. Lab Data Lab results reviewed: Yes I reviewed the patient's lab results. HPI General Date/Time Provider Initiated Documentation: 10/06/22 01:10 . History of Present Illness described as moderate and severe, and is localized to the back. Patient reports radiation to back. and it has been constant. HPI Narrative: Time seen was 1255 AM in bed 6. The patient is a 21-year-old female who presents with approximately 24 hours of atraumatic upper back pain associated with some epigastric pain and nausea. She denies any numbness, tingling or weakness. She denies any saddle anesthesia. She denies any bowel or bladder incontinence or retention. She denies any dysuria. She denies any previous similar episodes, although review of her old records demonstrates that she had a similar episode in April. She has had a work-up for biliary disease including a previous ultrasound and HIDA scan. She denies any dysuria. She is a G0, P0. She denied any menstrual abnormalities. She denies any other aggravating or alleviating factors. She denies any fevers or chills. She denies any hematuria. The pain is located centrally over T11 and T12, L1 and L2. The pain is characterized as constant severe and throbbing. She denied diarrhea to me Related Data Home Medications Medication Instructions Recorded Confirmed albuterol sulfate 90 mcg/actuation 2 puff inhalation PRN PRN 07/05/16 06/08/22 aerosol inhaler (Ventolin HFA) albuterol sulfate 1.25 mg/3 mL 1.25 mg continuous nebulization 01/15/21 06/08/22 solution for nebulization PRN PRN rizatriptan 10 mg tablet See Rx Instructions PO .COMPLEX #9 07/19/21 03/29/22 tabs nortriptyline 25 mg capsule 25 mg PO QHS 09/30/21 11/20/21 Previous Rx's Medication Instructions Recorded rizatriptan 10 mg tablet See Rx Instructions PO .COMPLEX #9 07/19/21 tabs Allergies Allergy/AdvReac Type Severity Reaction Status Date / Time omeprazole AdvReac Intermediate Skin Rash Verified 10/05/22 23:26 and diarrhea promethazine AdvReac panic Unverified 10/06/22 05:44 enviromental Allergy Mild Uncoded 10/05/22 23:26 General Stated Complaint: Nausea/Vomit/Diar MRAY JANE: 3 Review of Systems Constitutional Constitutional: Reports as per HPI, Denies fever(s) and Denies weakness Cardiovascular Cardiovascular: Denies chest pain, Denies chest pain with activity, Denies leg edema and Denies orthopnea Respiratory Respiratory: Reports cough (Nonproductive) Gastrointestinal Gastrointestinal: Reports abdominal pain, Denies hematochezia, Denies change in stool character and Reports nausea Comments: Epigastric discomfort Genitourinary Genitourinary: Reports as per HPI, Denies abnormal menses, Denies urinary frequency, Denies difficulty voiding, Denies dysuria and Denies urinary hesitancy Neurologic Neurologic: Denies weakness PFSH All Active Problems Back pain (Acute) Abdominal pain (Acute) Septate uterus (Acute) Insomnia (Acute) Migraine headache without aura (Acute) Abdominal pain (Acute) Medical History Anxiety Asthma Chest pain Contusion of arm, left Ecchymosis of forearm Right ankle sprain Sprain of left shoulder Sprain of wrist, right Surgical History H/O esophagogastroduodenoscopy Family History Mother Heart disease Stroke Social History Smoking/Tobacco Use Status: Never Smoking risk assessment performed?: Yes Alcohol Intake: never Drug use: Never Substance use type: does not use Household members: family Number of Children: 0 Education Level: high school 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 Exam Const General: cooperative, healthy appearing, well developed, well groomed (She was tearful complaining of back pain on my arrival to the room), not diaphoretic, not disheveled, not ill appearing and does not appear intoxicated Nutritional Appearance: average body habitus and well nourished Orientation: alert, awake and oriented x3 HENMT Head: normal to inspection, normocephalic and atraumatic Ears: hearing grossly normal bilaterally and external ears normal General nose exam: external nose normal and no nasal discharge Face and sinus: normal facial exam Mouth: lip normal (Slightly dry mucous membranes, she is still crying tears) and other (Normal phonation) Throat: posterior oropharynx normal Eyes General: appearance normal, both eyes and all related structures Pupils: PERRL EOM: EOM intact bilaterally Neck Neck: normal visual inspection and full ROM Chest Chest: normal inspection of the chest Resp Effort & Inspection: normal respiratory effort, able to speak in complete sentences, audible wheezes, no respiratory distress, no retractions, no use of accessory muscles and prolonged expiratory phase Auscultation: wheezes Other: Patient had prolongation of the expiratory phase and diffuse end expiratory wheezing Cardio Jugular venous pressure: no JVD Rate: regular rate Rhythm: regular rhythm Heart Sounds: S1 normal, S2 normal, no gallops, no murmurs and no rubs GI Inspection: normal to inspection, no abdominal wall ecchymosis and non-distended Palpation: soft, no hepatosplenomegaly and nontender Auscultation: normal bowel sounds General: No CVA tenderness Back/Spine/Pelvis Back: no CVA tenderness Cervical Spine: normal cervical lordosis Thoracic/Lumbar Spine: thoracic and lumbar spine normal to inspection and thoraco-lumbar ROM normal Skin General skin exam: no rashes or lesions noted, turgor normal, no petechiae and no purpura Rashes: no rashes Trauma: no lacerations or abrasions Neuro General: patient alert, patient awake, patient oriented x3, no meningeal signs, no focal motor deficits and CN's II-XI intact bilaterally Cranial Nerves: CN's II-XI intact bilaterally Cognition: normal cognition Speech: speech normal Gait: normal gait Motor: muscle tone normal throughout Sensory Exam: no sensory deficits noted DTR's: Rt Patellar: 2+, Lt Patellar: 2+, Rt Ankle: 1+ and Lt Ankle: 1+ Plantar Reflexes: Downgoing: bilateral Pupils: Normal pupillary reactivity/response: bilateral Extrem General: normal to inspection, full ROM, capillary refill normal and normal exam except as noted Psych Appearance: grossly normal Affect: normal affect Attitude: cooperative Insight: insight good Judgment: judgment good Other: The patient appears to have capacity make medical decisions. Course Reevaluation(s) Initial Evaluation: The patient feels improved. I have discussed the findings of the CT scan including septate uterus. I have advised the patient to follow-up with [facility] [employer] [facility] and her primary care provider and to return here for any new or worrisome symptoms. Time: 05:59 Vital Signs Vital signs: Vital Signs Temperature 37.5 C 10/05/22 23:21 Pulse 135 H 10/05/22 23:21 Respiratory Rate 16 10/05/22 23:21 Blood Pressure 114/76 10/05/22 23:21 Pulse Oximetry 98 10/05/22 23:21 Temperature 37.5 C 10/05/22 23:21 Temperature Source Temporal Artery Scan 10/05/22 23:21 Pulse 135 H 10/05/22 23:21 Respiratory Rate 16 10/05/22 23:21 Respiratory Effort Normal 10/05/22 23:21 Blood Pressure 114/76 10/05/22 23:21 Blood Pressure Position Supine 10/05/22 23:21 Pulse Oximetry 98 10/05/22 23:21 Oxygen Delivery Method Room Air 10/05/22 23:21 Oxygen Flow Rate 0 10/05/22 23:21
[2022-10-06 01:40] LABS: Abs Immature Grans 0.01 10^3/uL (0.0-0.06); Absolute Basophil Count 0.02 10^3/uL (0.0-0.2); Absolute Lymphocyte Count 0.34 10^3/uL (1.2-3.4); Absolute Monocyte Count 0.37 10^3/uL (0.1-0.8); Absolute Neutrophil Count 3.62 10^3/uL (1.2-6.7); Basophils % 0.5; HCT 44.7 % (36.0-46.0); HGB 15.6 g/dL (11.2-15.7); Immature Grans % 0.2; Lymphocytes % 7.8; MCH 29.3 pg (27.0-33.0); MCHC 34.9 % (32.0-36.0); MCV 84 fL (80-95); MPV 9.6 fL (8.0-11.0); Monocytes % 8.5; Platelet Count 236 10^3/uL (130-400); RBC 5.33 10^6/uL (3.93-5.22); RDW 11.5 % (11.7-14.6); RDW-SD 34.9 fL; WBC 4.36 10^3/uL (4.4-10.8)
[2022-10-06 01:54] LABS: ALT 28 U/L (14-59); AST 24 U/L (15-37); Albumin 4.3 g/dL (3.4-5.0); Alkaline Phosphatase 74 U/L (46-116); Anion Gap 12.3 mmol/L (3-11); BUN 16 mg/dL (7-18); Bilirubin, Total 0.4 mg/dL (0.2-1.0); CO2 24.7 mmol/L (21.0-32.0); CREATININE 0.9 mg/dL (0.55-1.02); Calcium 9.3 mg/dL (8.5-10.1); Chloride 99 mmol/L (98-107); Estimated GFR 94.44 (mL/min/1.73m2); Glucose 82 mg/dL (74-106); Potassium 3.9 mmol/L (3.5-5.1); Sodium 136 mmol/L (136-145); Total Protein 8.3 g/dL (6.4-8.2)
[2022-10-06] MEDS: Ketorolac 15 MG/ML VIAL IM (01:54)
[2022-10-06] MEDS: Lactated Ringers 1,000 ML 1000 ML IV (01:54)
[2022-10-06 01:56] LABS: HCG Qual (Serum) Negative
[2022-10-06 02:47] LABS: Bilirubin Small (Negative); Blood Negative (Negative); Clarity Clear (Clear); Glucose Negative (Negative); Ketones >=160 mg/dL (Negative); Leukocyte Esterase Negative (Negative); Nitrite Negative (Negative); Specific Gravity 1.025 (1.005-1.025); Urobilinogen 0.2 mg/dL (Up to 0.2)
[2022-10-06 03:38] LABS: COVID-19 PCR Negative (Negative); Influenza A PCR Negative (Negative); Influenza B PCR Negative (Negative); RSV PCR Negative (Negative)
[2022-10-06 03:40] LABS: Source Nasopharynx
--- NOTE | 2022-10-06 03:45 | DI.CT_ITS ---
Exam(s) CT CHEST PE ABD PELVIS W EXAM: CT CHEST PE ABD PELVIS W CLINICAL HISTORY: back pain. TECHNIQUE: Imaging Protocol: Axial CT angiography was performed with multi-slice acquisition and m ulti-planar and/or 3D reconstructions. CONTRAST MATERIAL: Intravenous: Omnipaque 350 Contrast volume:100 ml Oral: None COMPARISON: CT CT ABDOMEN PELVIS W from 05/11/2022 FINDINGS: CHEST: AORTA: Diameter of the ascending thoracic aorta is normal. No evidence of aneurysm. No dissection e vident. 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 PULMONARY ARTERIES: There are no intra-arterial filling defects to suggest the presence of acute pulm onary emboli. LUNGS: There is no evidence of pulmonary infarction.No infiltrates. Accessory azygos lobe noted on t he right side. No nodules. There are no pleural effusions. MEDIASTINUM: There is no hilar nor mediastinal adenopathy. CARDIAC: Heart size is normal. There is no pericardial effusion. There is no significant shift of t he interventricular septum.Average right subclavian artery incidentally noted. OSSEOUS: No significant osseous lesions.. ABDOMEN: There is no ascites. LIVER: There are no focal hepatic lesions nor dilatation of intrahepatic ducts. GALLBLADDER/BILIARY: No obvious gallbladder pathology. CBD is not dilated. PANCREAS: No evidence of pancreatic mass nor dilatation of the pancreatic duct. SPLEEN: Spleen is not enlarged. There are no intrasplenic lesions. Splenic and portal veins are sims nt. ADRENALS: There are no significant adrenal masses. KIDNEYS:No cysts evident. No calculi nor hydronephrosis. No solid renal masses. ABDOMINAL AORTA: Abdominal aorta is not enlarged. LYMPH NODES: There is no retroperitoneal or para-aortic adenopathy. ABDOMINAL WALL/GI: No evidence of significant anterior abdominal wall hernia. No bowel obstruction. PELVIS: LYMPH NODES: There is no intrapelvic nor inguinal adenopathy. GI: No evidence of appendicitis.No evidence of sigmoid diverticulitis. 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 IMPRESSION: 1. No evidence of acute pulmonary emboli nor pulmonary infarction. No infiltrates nor pleural effusi ons 2. No aortic dissection. No pericardial effusion. 3. No acute findings. RADIATION DOSE DELIVERED: 1,016.25mGy.cm Total DLP DATA REPOSITORY: All CT scans at this facility are submitted to the National Radiology Data Registry (NRDR) Dose Index Registry (DIR) with the [employer] (ACR). RADIATION OPTIMIZATION: All CT scans at this facility use at least one of these dose optimization te chniques: automated exposure control; mA and/or kV adjustment per patient size (includes targeted exa ms where dose is matched to clinical indication); or iterative reconstruction.
[2022-10-06] MEDS: Normal Saline - Diluent 50 ML VIAL IJ (04:19)
[2022-10-06] MEDS: Omnipaque 350 MG/ML 100 ML BTL IJ (04:19)
--- NOTE | 2022-10-06 05:11 | DI.VRAD_ITS ---
PROCEDURE INFORMATION: Exam: CTA Chest With Contrast Exam date and time: 10/06/2022 4:10 AM Age: 21 years old Clinical indication: Other: Acute onset mid back pain TECHNIQUE: Imaging protocol: Computed tomographic angiography of the chest with contrast. Exam focused on the arteries. 3D rendering (Not supervised by radiologist): MIP and/or 3D reconstructed images were created by the technologist. Radiation optimization: All CT scans at this facility use at least one of these dose optimization techniques: automated exposure control; mA and/or kV adjustment per patient size (includes targeted exams where dose is matched to clinical indication); or iterative reconstruction. Contrast material: OMNI 350; Contrast volume: 100 ml; Contrast route: INTRAVENOUS (IV); COMPARISON: No relevant prior studies are available for comparison. FINDINGS: Limitations: Motion artifact degrades image quality. Pulmonary arteries: No definite pulmonary embolus identified, within the limitations noted above. Apparent decreased opacification at the periphery of multiple pulmonary arteries in the left lung attributable to motion artifact. Great vessels off aortic arch: Aberrant right subclavian artery. Aorta: No thoracic aortic aneurysm seen. Lungs: Azygos lobe incidentally noted. Pleural spaces: No pleural effusion. Heart: No pericardial effusion. Lymph nodes: No acute abnormality seen. Bones/joints: No acute pertinent abnormality seen. Soft tissues: Soft tissue in the anterior mediastinum, likely residual thymus. IMPRESSION: 1. No acute findings to explain reported symptoms, within the limitations noted above. 2. Additional studies dictated separately. PROCEDURE INFORMATION: Exam: CT Abdomen And Pelvis With Contrast Exam date and time: 10/06/2022 4:10 AM Age: 21 years old Clinical indication: Other: Acute onset mid back pain TECHNIQUE: Imaging protocol: Computed tomography of the abdomen and pelvis with contrast. Radiation optimization: All CT scans at this facility use at least one of these dose optimization techniques: automated exposure control; mA and/or kV adjustment per patient size (includes targeted exams where dose is matched to clinical indication); or iterative reconstruction. Contrast material: OMNI 350; Contrast volume: 100 ml; Contrast route: INTRAVENOUS (IV); COMPARISON: CT ABDOMEN PELVIS W 05/11/2022 1:46 FINDINGS: Liver: No focal hepatic lesion identified. Gallbladder and bile ducts: No radiodense gallbladder calculi seen. Pancreas: No CT evidence for acute pancreatitis. Spleen: No splenomegaly. Adrenal glands: No mass. Kidneys and ureters: No hydronephrosis or evidence for pyelonephritis. Stomach and bowel: No intestinal obstruction is evident. Fluid in nondilated small bowel, nonspecific. No intestinal obstruction is evident. Fluid in nondilated small bowel, nonspecific. Retained fecal material is present in the colon. Appendix: No evidence of appendicitis. Intraperitoneal space: Trace pelvic fluid, nonspecific in this 21-year-old female patient. Vasculature: No abdominal aortic aneurysm. Lymph nodes: No acute findings. Urinary bladder: No acute findings. Reproductive: Question septate uterus. Small low-density foci in the ovaries attributed to physiologic change/follicles. Bones/joints: No pertinent acute abnormality seen. Soft tissues: No pertinent acute abnormality seen. Other findings: CT scan of the chest dictated separately. IMPRESSION: 1. No acute findings to explain reported symptoms. 2. Nonacute findings as outlined above. 3. Additional studies dictated separately. Dictated and Authenticated by: Khushboo Holt MD. Ordering:AI Duran MD
== END 2022-10-06 06:26 | disposition home or self-care (01) ==
PROVIDERS: Emergency Provider Emergency Medicine Emergency Medical Services; PCP Nurse Practitioner Family
DX: R11.10 Vomiting, unspecified (principal); M54.50 Low back pain, unspecified; E86.0 Dehydration; R06.2 Wheezing; Q51.28 Other and unspecified doubling of uterus
CPT/HCPCS: 71275; 74177; 80053; 87637; 96361; 96365; 99285; 81003; 84703; 85025; 99283; J0131; J1885; J2405; J3490

== ENCOUNTER 2023-01-10 13:13 | Emergency (ER) | payer SELFPAY ==
[2023-01-10 13:19] VITALS: BP 139/83; PULSE 79; RESP 18; TEMP 37; O2SAT 98
[2023-01-10 14:14] LABS: ALT 20 U/L (14-59); AST 20 U/L (15-37); Albumin 3.8 g/dL (3.4-5.0); Alkaline Phosphatase 63 U/L (46-116); Bilirubin, Direct 0.1 mg/dL (0.0-0.2); Bilirubin, Total 0.2 mg/dL (0.2-1.0); Total Protein 7.8 g/dL (6.4-8.2)
--- NOTE | 2023-01-10 14:27 | ED.GENADUL_ITS ---
Discharge Plan Disposition Patient Disposition: Home Discharge Details Clinical Impression: Needlestick injury due to non-hypodermic needle Primary Care Provider: JOSE ALEJANDRO MARIE ED Provider: Kim Royal Home Meds and New Rx's Prescriptions: Continued albuterol sulfate 1.25 mg/3 mL Solution For Nebulization 1.25 mg continuous nebulization PRN PRN albuterol sulfate [Ventolin HFA] 60 PUFF HFA aerosol inhaler 2 puff Inhalation PRN PRN Discharge Instructions Instructions: Puncture Wound (ED) Additional Instructions: recheck anti-HCV and ALT 4-6 mo post exposure HIV testing at 6 weeks, 3 months, and 6 months keep clean and dry apply bacitracin or triple antibiotic ointment return with spreading redness, fever, worsening pain follow-up with your pcp for this repeat testing Referrals: JOSE ALEJANDRO MARIE, TREASURY REPRESENTATIVE [Primary Care Provider] - 2 weeks Discharge Data Discharge Date/Time-TO BE ENTERED AT DEPARTURE: 01/10/23 13:56 Medical Decision Making Small, clean puncture noted to patient's left thumb, no additional visible evidence of trauma As a source is unknown, we will check patient's labs, believes hep B series was received Tetanus up-to-date Considered HIV prophylaxis, however patient declined as her risk is less than 0.04%, so does not hypodermic needle and there is no visible blood, patient will however receive outpatient laboratory testing at 6 weeks, 3 months, and 6 months, timeline supply, will need to follow-up with her doctor for outpatient orders of these labs to be sure that patient remains negative, initial labs are pending Return precautions reviewed and patient expressed understanding She is aware that she will need to have be booster if she does not have a positive antibody HPI General Date/Time Provider Initiated Documentation: 01/10/23 13:34 . HPI Narrative: 22-year-old female presents with accidental puncture with a contaminated dental cleaning tool that punctured her finger, left thumb at work. Tetanus up-to-date per patient. Denies chance of . Received hep B series per patient. Cleansed immediately, no visible blood but unknown source patient per patient. Related Data Home Medications Medication Instructions Recorded Confirmed albuterol sulfate 90 mcg/actuation 2 puff inhalation PRN PRN 07/05/16 01/10/23 aerosol inhaler (Ventolin HFA) albuterol sulfate 1.25 mg/3 mL 1.25 mg continuous nebulization 01/15/21 01/10/23 solution for nebulization PRN PRN Allergies Allergy/AdvReac Type Severity Reaction Status Date / Time omeprazole AdvReac Intermediate Skin Rash Verified 01/10/23 13:23 and diarrhea promethazine AdvReac panic Unverified 01/10/23 13:23 enviromental Allergy Mild Uncoded 01/10/23 13:23 General Stated Complaint: Laceration MARY JANE: 4 PFSH All Active Problems (Updated 01/10/23 @ 13:48 by RICK Trinh) Needlestick injury due to non-hypodermic needle (Acute) Insomnia (Acute) Migraine headache without aura (Acute) Abdominal pain (Acute) Medical History Anxiety Asthma Chest pain Contusion of arm, left Ecchymosis of forearm Right ankle sprain Sprain of left shoulder Sprain of wrist, right Surgical History H/O esophagogastroduodenoscopy Family History Mother Heart disease Stroke Social History Smoking/Tobacco Use Status: Never Smoking risk assessment performed?: Yes Alcohol Intake: never Drug use: Never Substance use type: does not use Household members: family Number of Children: 0 Education Level: high school 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[employer] 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 Course Vital Signs Vital signs: Vital Signs Temperature 37.0 C 01/10/23 13:19 Pulse 79 01/10/23 13:19 Respiratory Rate 18 01/10/23 13:19 Blood Pressure 139/83 01/10/23 13:19 Pulse Oximetry 98 01/10/23 13:19 Temperature 37.0 C 01/10/23 13:19 Temperature Source Skin 01/10/23 13:19 Pulse 79 01/10/23 13:19 Respiratory Rate 18 01/10/23 13:19 Blood Pressure 139/83 01/10/23 13:19 Blood Pressure Position Supine 01/10/23 13:19 Pulse Oximetry 98 01/10/23 13:19 Oxygen Delivery Method Room Air 01/10/23 13:19 Oxygen Flow Rate 0 01/10/23 13:19 Lab/Test Results Lab/Test Results: Laboratory Tests Range/Units 01/10/23 13:51 Total Bilirubin (0.2-1.0) mg/dL 0.2 Conjugated Bilirubin (0.0-0.2) mg/dL 0.1 AST (15-37) U/L 20 ALT (14-59) U/L 20 Alkaline Phosphatase (46-116) U/L 63 Total Protein (6.4-8.2) g/dL 7.8 Albumin (3.4-5.0) g/dL 3.8
[2023-01-11 11:07] LABS: Hepatitis B Surface Ag Negative (Negative)
[2023-01-11 11:53] LABS: HBs Antibody, Quant <3.1 mIU/mL (See Note); Hepatitis B Surface Ab Negative (See Note)
[2023-01-11 12:11] LABS: HIV-1/2 Ag & Ab Screen Negative (Negative)
[2023-01-11 12:17] LABS: Hepatitis C Ab w Rflx HCV PCR Negative (Negative)
== END 2023-01-10 13:56 | disposition home or self-care (01) ==
PROVIDERS: Emergency Provider Physician Assistant; PCP Nurse Practitioner Family
DX: S61.032A Puncture wound without foreign body of left thumb without damage to nail, initial encounter; W26.8XXA Contact with other sharp object(s), not elsewhere classified, initial encounter; Z77.21 Contact with and (suspected) exposure to potentially hazardous body fluids
CPT/HCPCS: 80076; 86706; 86803; 87340; 87389; 99283; 99284

== ENCOUNTER 2023-02-22 09:02 | Emergency (ER) | payer MEDICAID, SELFPAY ==
[2023-02-22 09:09] VITALS: BP 124/73; PULSE 66; RESP 16; TEMP 36.6; O2SAT 97
--- NOTE | 2023-02-22 09:18 | W.ED.GENAD ---
Discharge Plan Disposition Patient Disposition: Home Discharge Details Clinical Impression: Abdominal pain of unknown cause Primary Care Provider: JOSE ALEJANDRO MARIE ED Provider: Ady Anderson Home Meds and New Rx's Prescriptions: No Action albuterol sulfate 1.25 mg/3 mL Solution For Nebulization 1.25 mg continuous nebulization PRN PRN albuterol sulfate [Ventolin HFA] 60 PUFF HFA aerosol inhaler 2 puff Inhalation PRN PRN Discharge Instructions Instructions: Abdominal Pain (ED) Additional Instructions: You were seen in the emergency department for your abdominal pain of unknown cause, your appendix appears normal, there is no pathology around your ovaries, there is no free fluid in her pelvis or no bowel obstruction. Your pain may be related to your menstrual period, you may have abdominal wall muscle strain, you have had multiple CAT scans with no results, I suggest you follow-up with gastroenterology, please return to the ED for any severe increase in abdominal pain with urinary retention, constipation or black or bloody diarrhea, intractable nausea or vomiting or fever. Your laboratory work-up and CT scans were all normal without any significant abnormality to suspect dangerous condition exists. Please take Tylenol & ibuprofen for pain as needed. Referrals: JOSE ALEJANDRO MARIE, [employer] [Primary Care Provider] - Medical Decision Making This dictation utilizes [id number] dictation software and may contain unedited grammatical errors. 22 y/o F presents to ED today with a chief complaint of RLQ ABD Pain since last night. Onset and characteristics include sharp stabbing pain worse with any movement, endorses nausea, denies active vomiting, denies bowel changes, is on her menses. Patients' medical history: chronic GI issues without findings. Family and social history: noncontributory. Pertinent exam findings / vital signs include right lower quadrant tenderness at McBurney's point with rebound tenderness, positive Rovsing's, positive psoas sign, right upper quadrant tenderness, nontoxic vitals, benign cardiopulmonary status. Differential / pathologies of concern include appendicitis, ovarian cyst/torsion, TOA, biliary colic, renal stone. Diagnostic studies of: -CBC, CMP, Lactate, UA, Upreg, CT ABD/Pelvis w Contrast. -not , on menses -UA benign, blood- likely menses -CBC no leukocytosis, HgB stable -CMP benign -Lactate neg -CTAP shows no acute pathology Interventions of: -APAP/Toradol. ED Course/Assessment/Plan: 22-year-old patient presents with complex history of multiple workups for abdominal pain without findings, has seen GI for EGD and colonoscopy, having right lower quadrant tenderness, exquisite tenderness on exam without acute concerns and lab work or CT make me question abdominal muscle strain versus severe cramps of menses versus possible endometriosis. I counseled the patient on unlikely source of emergent pathology today and following up with GI and possibly [employer]. Findings not consistent with sepsis, appendicitis, ovarian torsion, TOA, biliary pathology, renal stones. Disposition of Abdominal Pain of Unknown Cause. Patient verbalized understanding of the plan and return to ED criteria and engaged in shared decision making. Medical Records Medical records reviewed: Yes I reviewed the patient's medical records. Imaging Data Radiologic Study: Imaging: CT Scan Radiologist's impression: EXAM: CT ABDOMEN PELVIS W CLINICAL HISTORY: RLQ tenderness @ McBurney's point. TECHNIQUE: Imaging Protocol: Axial computed tomography images with coronal and sagittal reformatted images were created and reviewed CONTRAST MATERIAL: Intravenous: Omnipaque-350 100cc Oral: None COMPARISON: CT CT CHEST PE ABD PELVIS W from 10/06/2022 FINDINGS: VISUALIZED LUNG BASES: No nodules nor pleural effusions evident. ABDOMEN: There is no ascites. LIVER: There are no focal hepatic lesions evident. No dilated intrahepatic ducts. GALLBLADDER/BILIARY: No obvious gallbladder pathology. CBD is not dilated. PANCREAS: No evidence of pancreatic mass nor dilatation of the pancreatic duct. SPLEEN: Spleen is not enlarged. No obvious intrasplenic lesions. Splenic and portal veins are patent. ADRENALS: There are no significant adrenal masses. KIDNEYS:No cysts evident. No solid renal masses. No calculi nor hydronephrosis.. ABDOMINAL AORTA: Abdominal aorta is not enlarged. LYMPH NODES:There is no retroperitoneal nor paraaortic adenopathy. ABDOMINAL WALL: No evidence of significant anterior abdominal wall nor inguinal hernia. GI: There is no evidence of bowel obstruction, free air, nor abscess. PELVIS: GI: Appendix is retrocecal. No evidence of appendicitis.No evidence of sigmoid diverticulitis. LYMPH NODES: There is no intrapelvic nor inguinal adenopathy. REPRODUCTIVE: Uterus is anteverted and appears unremarkable. Ovaries unremarkable. URINARY BLADDER: No calculi nor obvious masses evident OSSEOUS: No fractures and no significant osseous lesions. IMPRESSION: 1. No evidence of acute appendicitis. The appendix is retrocecal but otherwise unremarkable. 2. No evidence of prominent mesenteric lymph nodes nor ascites. No bowel obstruction. Terminal ileal diameter is upper normal. Called by myself to ER physician. Lab Data Lab results reviewed: Yes I reviewed the patient's lab results. Labs: Laboratory Tests Range/Units 02/22/23 02/22/23 02/22/23 09:26 09:52 10:15 WBC (4.4-10.8) 10^3/uL 4.67 RBC (3.93-5.22) 10^6/uL 4.96 Hgb (11.2-15.7) g/dL 14.6 Hct (36.0-46.0) % 42.3 MCV (80-95) fL 85 MCH (27.0-33.0) pg 29.4 MCHC (32.0-36.0) % 34.5 RDW (11.7-14.6) % 11.6 L Plt Count (130-400) 10^3/uL 273 MPV (8.0-11.0) fL 9.0 Immature Gran % 0.2 Neutrophils % 50.2 Lymphocytes % 38.5 Monocytes % 8.6 Eosinophils % 1.9 Basophils % 0.6 Nucleated RBC % (0.0-0.3) % 0.0 Absolute Neutrophils (1.2-6.7) 10^3/uL 2.34 Absolute Lymphocytes (1.2-3.4) 10^3/uL 1.80 Absolute Monocytes (0.1-0.8) 10^3/uL 0.40 Absolute Eosinophils (0.0-0.7) 10^3/uL 0.09 Absolute Basophils (0.0-0.2) 10^3/uL 0.03 ESR (0-20) mm/hr 9 VBG Lactate (0.6-1.4) mmol/L 0.9 Sodium (136-145) mmol/L 139 Potassium (3.5-5.1) mmol/L 4.2 Chloride (98-107) mmol/L 104 Carbon Dioxide (21.0-32.0) mmol/L 26.4 Anion Gap (3-11) mmol/L 8.6 BUN (7-18) mg/dL 13 Creatinine (0.55-1.02) mg/dL 0.7 Est GFR (CKD-EPI 2020) (mL/min/1.73m2) 126.90 Glucose (74-106) mg/dL 95 Calcium (8.5-10.1) mg/dL 9.3 Magnesium (1.8-2.4) mg/dL 2.1 Total Bilirubin (0.2-1.0) mg/dL 0.2 AST (15-37) U/L 28 ALT (14-59) U/L 43 Alkaline Phosphatase (46-116) U/L 65 C-Reactive Protein (0.0-0.3) mg/dL 0.24 Total Protein (6.4-8.2) g/dL 8.2 Albumin (3.4-5.0) g/dL 4.0 Lipase (16-77) U/L 34 Urine Color (Yellow) Yellow Urine Clarity (Clear) Clear Urine pH (5-8) 6.0 Ur Specific [place] (1.005-1.025) >= 1.030 H Urine Protein (Negative) mg/dL Negative Urine Ketones (Negative) mg/dL Negative Urine Blood (Negative) Large H Urine Nitrite (Negative) Negative Urine Bilirubin (Negative) Negative Urine Urobilinogen (Up to 0.2) mg/dL 0.2 Ur Leukocyte Esterase (Negative) Negative Urine RBC (0-2) HPF 20-50 H Urine WBC (0-5) HPF Negative Ur Epithelial Cells (Negative) HPF Few Urine Crystals (Negative) HPF Negative Urine Bacteria (Negative) HPF Negative Urine Casts (Negative) LPF Negative Urine Mucus (Negative) Trace Ur Culture Indicated? No Urine Glucose (Negative) mg/dL Negative HPI General Date/Time Provider Initiated Documentation: 02/22/23 09:18. HPI Narrative: 22 year-old female presents to ED today by POV/ambulating with her mother with a chief complaint of RLQ sharp stabbing abdominal pain with onset yesterdays. Quality described as sharp stabbing abdominal pain, RLQ, cannot even move without it causing significant pain, no radiation to fever, vomiting, chest pain, shortness of breath, endorses rash last night and nausea, denies bowel/urinary changes, states she is on her menses but this feels different. Severity is described as 9/10. Palliating factors include nothing specific attempted. Provoking factors include nothing specific. Events leading up to the incident/Associated Symptoms: Patient has had stomach problems for about 2 years, but seemed to be fine for months prior to this episode- has had EGD/colonoscopy, [place] [facility] [place] Patient not anticoagulated. Related Data Home Medications Medication Instructions Recorded Confirmed albuterol sulfate 90 mcg/actuation 2 puff inhalation PRN PRN 07/05/16 01/10/23 aerosol inhaler (Ventolin HFA) albuterol sulfate 1.25 mg/3 mL 1.25 mg continuous nebulization 01/15/21 01/10/23 solution for nebulization PRN PRN Allergies Allergy/AdvReac Type Severity Reaction Status Date / Time omeprazole AdvReac Intermediate Skin Rash Verified 02/22/23 09:12 and diarrhea promethazine AdvReac panic Unverified 02/22/23 09:12 enviromental Allergy Mild Uncoded 02/22/23 09:12 General Stated Complaint: Abd Prob MARY JANE: 3 Review of Systems All systems reviewed & are unremarkable except as noted in HPI and below PFSH All Active Problems (Updated 02/22/23 @ 11:47 by RICK Tavarez) Abdominal pain of unknown cause (Acute) Insomnia (Acute) Migraine headache without aura (Acute) Abdominal pain (Acute) Medical History Anxiety Asthma Chest pain Contusion of arm, left Ecchymosis of forearm Right ankle sprain Sprain of left shoulder Sprain of wrist, right Surgical History H/O esophagogastroduodenoscopy Family History Mother Heart disease Stroke Social History Smoking/Tobacco Use Status: Never Smoking risk assessment performed?: Yes Alcohol Intake: never Drug use: Never Substance use type: does not use Household members: family Housing: apartment Number of Children: 0 Education Level: high school 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 SKIN: Warm, pink, dry, intact, without rashes/lesions/ulcerations. HEAD: Normocephalic, atraumatic, normal hair distribution for gender/age. EYES: Pupils PERRLA, EOMs intact without nystagmus, normal conjunctiva, no exudates on lids/lashes. ENT: Nares patent, no circumoral cyanosis, no facial swelling NECK: Supple, trachea midline, painless cervical ROM. LUNGS/CHEST: Lungs CTA bilaterally- no rhonchi/rales/wheezes diffusely, non-labored respirations, normal A/P diameter, symmetrical expansion, no chest wall deformity HEART (CV/PV): Regular rate and rhythm without murmur, no peripheral edema, no JVD. ABDOMEN: Normoactive bowel sounds, soft, non-distended, no guarding, TTP @ McBurney's point with rebound tenderness, endorses Rovsing's with LLQ palpation, +RUQ tenderness, +psoas sign. MSK: Normal ROM, no swelling/deformity to bilateral UEs or LEs, moving all extremities without weakness, no cyanosis, spine midline without tenderness, normal curvature. NEURO: Mental Status AAOx4 - alert to person, place, time, events No facial droop, no forehead involvement. Motor: No focal weakness - strength 5/5 in bilateral UEs and LEs, proximal and distal, symmetric. Sensory: sensation intact to light touch globally. Gait normal: patient ambulated without ataxia into ED room. PSYCH: euthymic, cooperative, pleasant, appropriate speech Course Vital Signs Vital signs: Vital Signs Temperature 36.6 C 02/22/23 09:09 Pulse 66 02/22/23 09:09 Respiratory Rate 16 02/22/23 09:09 Blood Pressure 124/73 02/22/23 09:09 Pulse Oximetry 97 02/22/23 09:09 Temperature 36.6 C 02/22/23 09:09 Temperature Source Rectal 02/22/23 09:09 Pulse 66 02/22/23 09:09 Respiratory Rate 16 02/22/23 09:09 Blood Pressure 124/73 02/22/23 09:09 Pulse Oximetry 97 02/22/23 09:09 Oxygen Delivery Method Room Air 02/22/23 09:09 Oxygen Flow Rate 0 02/22/23 09:09
[2023-02-22 10:08] LABS: Bilirubin Negative (Negative); Blood Large (Negative); Clarity Clear (Clear); Glucose Negative (Negative); Ketones Negative (Negative); Leukocyte Esterase Negative (Negative); Nitrite Negative (Negative); Specific Gravity >= 1.030 (1.005-1.025); Urobilinogen 0.2 mg/dL (Up to 0.2)
[2023-02-22 10:17] LABS: Bacteria Negative HPF (Negative); C & S Indicated? No; Casts Negative LPF (Negative); Crystals Negative HPF (Negative); Epithelial Cells Few HPF (Negative); Mucus Trace (Negative); RBC 20-50 HPF (0-2); WBC Negative HPF (0-5)
[2023-02-22] MEDS: Normal Saline 1,000 ML 1000 ML IV (10:24)
[2023-02-22] MEDS: ACETAMINOPHEN 1,000 MG/100 ML BTL 400 MG IVPB (10:24)
[2023-02-22] MEDS: Famotidine 20 MG/2 ML VIAL IVP (10:25)
[2023-02-22] MEDS: Ondansetron O.D.T. 4 MG TABEF PO (10:25)
[2023-02-22] MEDS: Ketorolac 10 MG TAB PO (10:25)
[2023-02-22 10:29] LABS: Abs Immature Grans 0.01 10^3/uL (0.0-0.06); Absolute Basophil Count 0.03 10^3/uL (0.0-0.2); Absolute Eosinophil Count 0.09 10^3/uL (0.0-0.7); Absolute Neutrophil Count 2.34 10^3/uL (1.2-6.7); Basophils % 0.6; Eosinophils % 1.9; HCT 42.3 % (36.0-46.0); HGB 14.6 g/dL (11.2-15.7); Immature Grans % 0.2; Lactate 0.9 mmol/L (0.6-1.4); Lymphocytes % 38.5; MCH 29.4 pg (27.0-33.0); MCHC 34.5 % (32.0-36.0); MCV 85 fL (80-95); Monocytes % 8.6; Neutrophils % 50.2; Platelet Count 273 10^3/uL (130-400); RBC 4.96 10^6/uL (3.93-5.22); RDW 11.6 % (11.7-14.6); RDW-SD 35.8 fL; WBC 4.67 10^3/uL (4.4-10.8)
[2023-02-22 10:32] LABS: ESR 9 mm/hr (0-20)
[2023-02-22 10:45] LABS: C-Reactive Protein 0.24 mg/dL (0.0-0.3)
[2023-02-22 10:49] LABS: ALT 43 U/L (14-59); AST 28 U/L (15-37); Alkaline Phosphatase 65 U/L (46-116); Anion Gap 8.6 mmol/L (3-11); BUN 13 mg/dL (7-18); Bilirubin, Total 0.2 mg/dL (0.2-1.0); CO2 26.4 mmol/L (21.0-32.0); CREATININE 0.7 mg/dL (0.55-1.02); Calcium 9.3 mg/dL (8.5-10.1); Chloride 104 mmol/L (98-107); Glucose 95 mg/dL (74-106); Lipase 34 U/L (16-77); Magnesium 2.1 mg/dL (1.8-2.4); Potassium 4.2 mmol/L (3.5-5.1); Sodium 139 mmol/L (136-145); Total Protein 8.2 g/dL (6.4-8.2)
[2023-02-22] MEDS: Normal Saline - Diluent 50 ML VIAL IJ (11:21)
[2023-02-22 11:22] VITALS: BP 124/73; PULSE 66; RESP 16; TEMP 36.6; O2SAT 97
[2023-02-22] MEDS: Omnipaque 350 MG/ML 500 ML BTL-Imaging package 100 ML IJ (11:22)
--- NOTE | 2023-02-22 11:32 | DI.CT_ITS ---
Exam(s) CT ABDOMEN PELVIS W EXAM: CT ABDOMEN PELVIS W CLINICAL HISTORY: RLQ tenderness @ McBurney's point. TECHNIQUE: Imaging Protocol: Axial computed tomography images with coronal and sagittal reformatted images were created and reviewed CONTRAST MATERIAL: Intravenous: Omnipaque-350 100cc Oral: None COMPARISON: CT CT CHEST PE ABD PELVIS W from 10/06/2022 FINDINGS: VISUALIZED LUNG BASES: No nodules nor pleural effusions evident. ABDOMEN: There is no ascites. LIVER: There are no focal hepatic lesions evident. No dilated intrahepatic ducts. GALLBLADDER/BILIARY: No obvious gallbladder pathology. CBD is not dilated. PANCREAS: No evidence of pancreatic mass nor dilatation of the pancreatic duct. SPLEEN: Spleen is not enlarged. No obvious intrasplenic lesions. Splenic and portal veins are paten t. ADRENALS: There are no significant adrenal masses. KIDNEYS:No cysts evident. No solid renal masses. No calculi nor hydronephrosis.. ABDOMINAL AORTA: Abdominal aorta is not enlarged. LYMPH NODES:There is no retroperitoneal nor paraaortic adenopathy. ABDOMINAL WALL: No evidence of significant anterior abdominal wall nor inguinal hernia. GI: There is no evidence of bowel obstruction, free air, nor abscess. PELVIS: GI: Appendix is retrocecal. No evidence of appendicitis.No evidence of sigmoid diverticulitis. LYMPH NODES: There is no intrapelvic nor inguinal adenopathy. REPRODUCTIVE: Uterus is anteverted and appears unremarkable. Ovaries unremarkable. URINARY BLADDER: No calculi nor obvious masses evident OSSEOUS: No fractures and no significant osseous lesions. IMPRESSION: 1. No evidence of acute appendicitis. The appendix is retrocecal but otherwise unremarkable. 2. No evidence of prominent mesenteric lymph nodes nor ascites. No bowel obstruction. Terminal ilea l diameter is upper normal. Called by myself to ER physician. RADIATION DOSE DELIVERED: Total DLP DATA REPOSITORY: All CT scans at this facility are submitted to the National Radiology Data Registry (NRDR) Dose Index Registry (DIR) with the [employer] (ACR). RADIATION OPTIMIZATION: All CT scans at this facility use at least one of these dose optimization te chniques: automated exposure control; mA and/or kV adjustment per patient size (includes targeted exa ms where dose is matched to clinical indication); or iterative reconstruction.
== END 2023-02-22 12:13 | disposition home or self-care (01) ==
PROVIDERS: Emergency Provider Physician Assistant; PCP Nurse Practitioner Family
DX: R10.30 Lower abdominal pain, unspecified (principal); R21 Rash and other nonspecific skin eruption; R11.10 Vomiting, unspecified
CPT/HCPCS: 80053; 83690; 85652; 96361; 96374; 96375; 99285; 74177; 81003; 81015; 83605; 83735; 85025; 86140; 99284; J0131

== ENCOUNTER 2023-05-01 19:08 | Emergency (ER) | payer MEDICAID, SELFPAY ==
[2023-05-01 19:10] VITALS: BP 127/84; PULSE 88; RESP 16; TEMP 36.6; O2SAT 100
[2023-05-01] MEDS: Prochlorperazine 10 MG/2 ML VIAL IVP (20:11)
[2023-05-01] MEDS: diphenhydrAMINE 50 MG/ML VIAL 25 MG IVP (20:11)
[2023-05-01] MEDS: Ketorolac 15 MG/ML VIAL 10 MG IVP (20:11)
[2023-05-01] MEDS: Normal Saline Flush 10 ML SYR IVP (20:12)
[2023-05-01] MEDS: Normal Saline 1,000 ML 1000 ML IV (20:12)
[2023-05-01] MEDS: MAGNESIUM SULFATE 2 GM/50 ML BAG IVPB (21:12)
[2023-05-01] MEDS: methylPREDNISolone SUCC 125 MG VIAL IVP (21:12)
--- NOTE | 2023-05-01 21:48 | ED.GENADUL_ITS ---
HPI General Date/Time Provider Initiated Documentation: 05/01/23 19:17 . Limitations to Documentation: no limitations . Information obtained by: patient . HPI Narrative: 32-year-old female with past medical history of migraine headaches presents for evaluation of left-sided head discomfort. Started this morning. Not acute onset. Not worst headache of life. She describes it is not really pain is just a weird sensation. She also has this left-sided vision changes that she feels like is blurry, but she cannot see out of it. No diplopia. No weakness, no speech changes. Has not tried any medications for relief. Has had migraine headaches before. Mom has a history of migraine headaches as well as ocular migraines. Denies any fever, neck pain or stiffness, denies any trauma. Related Data Home Medications Medication Instructions Recorded Confirmed albuterol sulfate 90 mcg/actuation 2 puff inhalation PRN PRN 07/05/16 05/01/23 aerosol inhaler (Ventolin HFA) albuterol sulfate 1.25 mg/3 mL 1.25 mg continuous nebulization 01/15/21 05/01/23 solution for nebulization PRN PRN Allergies Allergy/AdvReac Type Severity Reaction Status Date / Time omeprazole AdvReac Intermediate Skin Rash Verified 05/01/23 19:45 and diarrhea promethazine AdvReac panic Unverified 05/01/23 19:45 enviromental Allergy Mild Uncoded 05/01/23 19:45 General Stated Complaint: FacialProb MARY JANE: 4 Exam Narrative Exam Narrative: Review of Systems: All systems reviewed & are unremarkable except as noted in HPI and below Well-developed, no acute distress NCAT PERRL, normal conjunctiva RRR Unlabored respiratory effort Nondistended abdomen Extremities w/o deformity, no cyanosis, no edema No rashes or lesions. no focal neurologic deficits, no facial asymmetry, normal strength throughout Appropriate mood and affect Course Vital Signs Vital signs: Vital Signs Temperature 36.6 C 05/01/23 19:10 Pulse 88 05/01/23 19:10 Respiratory Rate 16 05/01/23 19:10 Blood Pressure 127/84 05/01/23 19:10 Pulse Oximetry 100 05/01/23 19:10 Temperature 36.6 C 05/01/23 19:10 Temperature Source Temporal Artery Scan 05/01/23 19:10 Pulse 88 05/01/23 19:10 Respiratory Rate 16 05/01/23 19:10 Respiratory Effort Normal, Non-Labored 05/01/23 19:42 Blood Pressure 127/84 05/01/23 19:10 Pulse Oximetry 100 05/01/23 19:10 Oxygen Delivery Method Room Air 05/01/23 19:10 Oxygen Flow Rate 0 05/01/23 19:10 Pain Level 0 05/01/23 19:10 Lab/Test Results Lab/Test Results: POC- Test(urine) Negative Medical Decision Making Emergent evaluation of left-sided head discomfort. Initial differential includes anxiety, complex migraine, ocular migraine. Doubt acute intracranial p rocess. Patient has a normal neurologic exam. She has no fever concerning for infectious etiology. It is not acute onset or severe concerning for subarachnoid. I do not feel that she needs any imaging. IV fluids and medication given for symptom relief. This resolved her symptoms. Further supporting the diagnosis of migraine. Patient discharged in good condition. Return precautions advised. Otherwise recommend close follow-up with PCP. Medical Records Medical records reviewed: Yes I reviewed the patient's medical records. Lab Data Lab results reviewed: Yes I reviewed the patient's lab results. Quality:SDOH Health Related Social Needs: No Data to Display PFSH All Active Problems Insomnia (Acute) Migraine headache without aura (Acute) Abdominal pain (Acute) Medical History Asthma Anxiety Contusion of arm, left Sprain of left shoulder Chest pain Ecchymosis of forearm Right ankle sprain Sprain of wrist, right Surgical History H/O esophagogastroduodenoscopy Family History Mother Heart disease Stroke Social History Smoking/Tobacco Use Status: Never Smoking risk assessment performed?: Yes Alcohol Intake: never Drug use: Never Substance use type: does not use Household members: family Housing: apartment Number of Children: 0 Education Level: high school 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[employer] 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 Discharge Plan Disposition Patient Disposition: Home Discharge Details Clinical Impression: Migraine headache without aura Primary Care Provider: JOSE ALEJANDRO MARIE ED Provider: Taylor Moon Home Meds and New Rx's Prescriptions: No Action albuterol sulfate 1.25 mg/3 mL Solution For Nebulization 1.25 mg continuous nebulization PRN PRN albuterol sulfate [Ventolin HFA] 60 PUFF HFA aerosol inhaler 2 puff Inhalation PRN PRN Discharge Instructions Instructions: Migraine Headache (ED), Ocular Migraine (ED) Additional Instructions: Make sure to drink lots of water, can take Motrin every 6 hours or Tylenol every 4 hours as needed for headache. If your headache symptoms persist please follow-up with primary care for further management or medication for migraines. Discharge Data Discharge Date/Time-TO BE ENTERED AT DEPARTURE: 05/01/23 21:54
[2023-05-01 21:53] VITALS: BP 118/62; PULSE 58; RESP 18; O2SAT 99
== END 2023-05-01 21:54 | disposition home or self-care (01) ==
PROVIDERS: Emergency Provider Emergency Medicine; PCP Nurse Practitioner Family
DX: G43.009 Migraine without aura, not intractable, without status migrainosus (principal)
CPT/HCPCS: 81025; 96361; 96365; 96375; 99284; J0780; J1200; J1885; J2930; J3475

== ENCOUNTER 2023-07-03 15:51 | Outpatient (CLI) | payer MEDICAID, SELFPAY ==
--- NOTE | 2023-07-03 08:00 | DI.RAD_ITS ---
Exam(s) XR HUMERUS LT EXAM: XR HUMERUS LT CLINICAL HISTORY: left biceps pain. TECHNIQUE: 2D digital imaging was performed. Two views. COMPARISON: CR,XR XR HUMERUS LT from 03/06/2021 FINDINGS: BONES: No acute fracture is present. No bony destructive lesion is seen. Visualized portion of elbow and shoulder joints are unremarkable. SOFT TISSUE: Normal. IMPRESSION: Unremarkable radiographs of the left humerus. DATA REPOSITORY: RADIATION DOSE DELIVERED:
== END 2023-07-03 15:52 | disposition home or self-care (01) ==
LOC: DIORS 15:52
PROVIDERS: PCP Nurse Practitioner Family; Visit Provider Physician Assistant
DX: S46.212D Strain of muscle, fascia and tendon of other parts of biceps, left arm, subsequent encounter (principal); X58.XXXD Exposure to other specified factors, subsequent encounter
CPT/HCPCS: 73060

== ENCOUNTER → 2023-07-20 00:12 | Outpatient (CLI) | payer MEDICAID, SELFPAY ==
--- NOTE | 2023-07-20 07:30 | DI.MRI_ITS ---
Exam(s) MR UPPER EXTREMITY LT WO EXAM: MR UPPER EXTREMITY LT WO CLINICAL HISTORY: L ARM PAIN,RUPTURE LT PROXIMAL BICEPS TENDON,S46.212A TECHNIQUE: Multiplanar multisequence MRI was performed without intravenous contrast. COMPARISON: CR XR HUMERUS LT from 07/03/2023 FINDINGS: BONES/JOINTS: No fracture or contusion pattern. No bone lesions identified. MUSCULOTENDINOUS STRUCTURES: The muscles show normal signal and size. No muscular fatty atrophy. The biceps tendons are intact both proximally and distally. There is normal signal and size within the biceps muscle and tendon. No evidence of a tendon tear or muscle rupture is seen. The muscles in th e left upper extremity show normal signal and size. SOFT TISSUES: No cystic or solid mass is seen in the soft tissues. OTHER FINDINGS: There is mild ectasia of the basilic vein. IMPRESSION: No evidence of a biceps tendon or muscle tear. DATA REPOSITORY:
== END ==
PROVIDERS: PCP Nurse Practitioner Family; Visit Provider Student in an Organized Health Care Education/Training Program
DX: S46.212A Strain of muscle, fascia and tendon of other parts of biceps, left arm, initial encounter (principal); X58.XXXA Exposure to other specified factors, initial encounter
CPT/HCPCS: 73218

== ENCOUNTER 2023-09-09 22:53 | Emergency (ER) | payer MEDICAID, SELFPAY ==
--- NOTE | 2023-09-09 22:45 | RT.EKG_ITS ---
APPROVED REPORT Exam: Resting ECG Reason for Exam: chest pain Patient Location: E HR:76 bpm ECG Measurements Heart Rate 76 AXIS OR 117 P 46 QRSd 92 QRS 51 QT 364 T 52 QTc 409 Conclusion Sinus rhythm...normal P axis, V-rate 60- 99 Normal Electrocardiogram
--- NOTE | 2023-09-09 22:55 | ED.GENADUL_ITS ---
Discharge Plan Disposition Patient Disposition: Home Condition: Good Discharge Details Clinical Impression: Atypical chest pain Primary Care Provider: JOSE ALEJANDRO MARIE ED Provider: Martin Moya Meds and New Rx's Prescriptions: New ibuprofen 600 mg tablet 600 mg PO TID Qty: 15 0RF Continued albuterol sulfate 1.25 mg/3 mL Solution For Nebulization 1.25 mg continuous nebulization PRN PRN albuterol sulfate [Ventolin HFA] 60 PUFF HFA aerosol inhaler 2 puff Inhalation PRN PRN Discharge Instructions Instructions: Chest Pain, Adult ED Additional Instructions: You were seen for right-sided chest pain that is sharp and pleuritic in nature. Your exam, vital signs, EKG, laboratory studies, chest x-ray are all reassuring. Likely musculoskeletal chest wall pain versus pleurisy. Will have you continue ibuprofen 600 mg 3 times a day with food. Follow-up with primary care later this week. Return to ED for any new or worsening pain, shortness of breath, syncope, fever, other concerns. Referrals: JOSE ALEJANDRO MARIE, DISTRICT OR DISTRICT OFFICE DIRECTOR [Primary Care Provider] - [facility] General Mode of arrival: ambulatory . Date/Time Provider Initiated Documentation: 09/09/23 22:55 . Limitations to Documentation: no limitations . Information obtained by: patient . HPI Narrative: Patient presents to ED with right upper chest pain that radiates into her back. Pain is worse with deep breaths. Pain not necessarily worse with movement but in the morning she feels tightness and stiffness in this area. Denies any neck pain. Denies any fevers, cold symptoms, cough. Does feel short of breath. Denies any abdominal pain. Had nausea tonight related to the pain she thinks. Did try ibuprofen a couple of days ago. Has tried Tums. Denies any injury. Denies any numbness or weakness. Denies any urinary symptoms. There is no prior history of blood clots. She is not on estrogen-based control. She has no cardiac risk factors. Related Data Home Medications Medication Instructions Recorded Confirmed albuterol sulfate 90 mcg/actuation 2 puff inhalation PRN PRN 07/05/16 09/09/23 aerosol inhaler (Ventolin HFA) albuterol sulfate 1.25 mg/3 mL 1.25 mg continuous nebulization 01/15/21 09/09/23 solution for nebulization PRN PRN ibuprofen 600 mg tablet 600 mg PO TID #15 tabs 09/10/23 Previous Rx's Medication Instructions Recorded ibuprofen 600 mg tablet 600 mg PO TID #15 tabs 09/10/23 Allergies Allergy/AdvReac Type Severity Reaction Status Date / Time omeprazole AdvReac Intermediate Skin Rash Verified 09/09/23 23:08 and diarrhea promethazine AdvReac panic Verified 09/09/23 23:08 enviromental Allergy Mild Other (See Uncoded 09/09/23 23:08 Comment) General MARY JANE: 4 Review of Systems Narrative: Per HPI Exam Narrative Exam Narrative: Const: WDWN female in NAD. VS per triage. HEENT: NC/AT. Normal facial exam. Neck: Supple. Trachea midline. Lungs: Normal respiratory effort. Lungs are clear. No chest wall tenderness. Cor: RRR without murmur. Good radial pulses. GI: Soft/ND/NT. Back: No CVAT. Neuro: A+O x 3. Normal speech, mentation, gait. Cranial nerves II - XII grossly intact. No gross motor or sensory deficit. Ext: No C/C/E. Medical Decision Making Patient presenting to ED with right upper chest pain that radiates to the back, pleuritic in nature with associated shortness of breath. Some discomfort with range of motion on the right but not overly so. No significant tenderness to the chest wall. No abdominal complaints. Abdomen completely benign. No CVAT. Lungs clear and equal. Patient is low risk for PE by revised [place] score and subsequently PERCs out. EKG is sinus rhythm at 76 and normal. Does not seem cardiac at all. Likely musculoskeletal. Will check labs and 1 troponin. Will obtain chest x-ray. Dose with IV ketorolac. Patient declines IV ketorolac stating that it makes her anxious. She is given oral ibuprofen instead. Laboratory studies are unremarkable with normal white count and hemoglobin, normal chemistries except for mag of 1.7, normal liver function and negative troponin. test is negative. Chest x-ray per my read and preliminary radiology read with no acute process. Patient pain improved with ibuprofen. Again feel this is likely musculoskeletal in nature, potentially pleurisy. Will continue ibuprofen and have her follow-up with primary care later this week. Return precautions provided. Lab Data Lab results reviewed: Yes I reviewed the patient's lab results. ECG Data Attestation: I personally reviewed and interpreted this ECG (s) as follows: Interpretation: Normal Quality:SDOH Health Related Social Needs: No Data to Display PFSH All Active Problems (Updated 09/10/23 @ 02:17 by Martin Moya MD) Atypical chest pain (Acute) Strain of left biceps (Acute) Insomnia (Acute) Medical History Migraine headache without aura Asthma Anxiety Surgical History H/O esophagogastroduodenoscopy Family History Mother Heart disease Stroke Social History Smoking/Tobacco Use Status: Never Smoking risk assessment performed?: Yes Alcohol Intake: never Drug use: Never Substance use type: does not use Household members: family Housing: apartment Number of Children: 0 Education Level: high school 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
[2023-09-09 22:59] VITALS: BP 129/52; PULSE 76; RESP 17; TEMP 36.7; O2SAT 98
[2023-09-09 23:06] VITALS: BP 129/52; PULSE 71; PULSE 73; RESP 23; O2SAT 97
[2023-09-09 23:10] VITALS: RESP 17
--- NOTE | 2023-09-09 23:15 | DI.RAD_ITS ---
Exam(s) XR CHEST 2V PA LATERAL EXAM: XR CHEST 2V PA LATERAL CLINICAL HISTORY: CP TECHNIQUE: 2D digital imaging was performed. Two views. COMPARISON: CT CT CHEST PE ABD PELVIS W from 10/06/2022 FINDINGS: HEART: Normal size. Aorta: Not dilated. PULMONARY VASCULATURE: Normal. LUNGS: Clear. PLEURAL SPACE: No pleural effusion or pneumothorax. BONE:Unremarkable for age. Soft tissues: Unremarkable. IMPRESSION: No acute abnormality. DATA REPOSITORY: RADIATION DOSE DELIVERED:
[2023-09-09 23:16] VITALS: BP 116/70; PULSE 75; PULSE 83; RESP 15; O2SAT 96
[2023-09-09 23:32] VITALS: BP 136/72; PULSE 81; PULSE 89; RESP 18
[2023-09-09 23:39] LABS: Abs Immature Grans 0.01 10^3/uL (0.0-0.06); Absolute Basophil Count 0.06 10^3/uL (0.0-0.2); Absolute Lymphocyte Count 3.31 10^3/uL (1.2-3.4); Absolute Monocyte Count 0.63 10^3/uL (0.1-0.8); Absolute Neutrophil Count 5.82 10^3/uL (1.2-6.7); Basophils % 0.6 %; HGB 13.7 g/dL (11.2-15.7); Immature Grans % 0.1 %; Lymphocytes % 33.3 %; MCH 29.3 pg (27.0-33.0); MCHC 34.3 % (32.0-36.0); MCV 86 fL (80-95); MPV 9.1 fL (8.0-11.0); Monocytes % 6.3 %; Neutrophils % 58.7 %; Platelet Count 278 10^3/uL (130-400); RBC 4.67 10^6/uL (3.93-5.22); RDW 11.9 % (11.7-14.6); RDW-SD 37.1 fL; WBC 9.93 10^3/uL (4.4-10.8)
[2023-09-09] MEDS: Ibuprofen 600 MG TAB PO (23:42)
[2023-09-09 23:46] VITALS: BP 114/69; PULSE 79; PULSE 85; RESP 16; O2SAT 98
[2023-09-09 23:53] LABS: HCG Qual (Serum) Negative
[2023-09-10] VITALS (15 sets, daily range): BP systolic 112; BP diastolic 63; PULSE 57–81; RESP 17–122; O2SAT 93–98
[2023-09-10] LABS: ALT 28 U/L (14-59); AST 20 U/L (15-37); Albumin 3.7 g/dL (3.4-5.0); Alkaline Phosphatase 81 U/L (46-116); Anion Gap 11.6 mmol/L (3-11); BUN 13 mg/dL (7-18); Bilirubin, Total 0.3 mg/dL (0.2-1.0); CO2 26.4 mmol/L (21.0-32.0); CREATININE 0.8 mg/dL (0.55-1.02); Calcium 8.6 mg/dL (8.5-10.1); Chloride 103 mmol/L (98-107); Estimated GFR 108.11 (mL/min/1.73m2); Glucose 108 mg/dL (74-106); Magnesium 1.7 mg/dL (1.8-2.4); Potassium 3.6 mmol/L (3.5-5.1); Sodium 141 mmol/L (136-145); Total Protein 7.6 g/dL (6.4-8.2)
[2023-09-10 00:03] LABS: Troponin I < 50 ng/L (< or =60)
--- NOTE | 2023-09-10 02:11 | DI.VRAD_ITS ---
PROCEDURE INFORMATION: Exam: XR Chest Exam date and time: 09/10/2023 12:03 AM Age: 22 years old Clinical indication: Chest pressure; Patient HX: Chest pain TECHNIQUE: Imaging protocol: Radiologic exam of the chest. Views: 2 views. COMPARISON: CT CHEST PE ABD PELVIS W 10/06/2022 4:10 AM FINDINGS: Lungs: Unremarkable. No consolidation. Pleural spaces: Unremarkable. No pleural effusion. No pneumothorax. Heart/Mediastinum: Unremarkable. No cardiomegaly. Bones/joints: Unremarkable. IMPRESSION: No acute findings. Dictated and Authenticated by: Vignesh Perdomo MD. Ordering:HEATHER Salazar MD
--- NOTE | 2023-09-10 09:23 | NUR.NOTE ---
Accessed pt chart to reconcile EKG orders with EKG?s in [facility]. Nursing Note:
== END 2023-09-10 02:35 | disposition home or self-care (01) ==
PROVIDERS: Emergency Provider Emergency Medicine; PCP Nurse Practitioner Family
DX: R07.89 Other chest pain (principal); R11.0 Nausea; R06.02 Shortness of breath
CPT/HCPCS: 80053; 93005; 99283; 71046; 83735; 84484; 84703; 85025; 93010

== ENCOUNTER 2024-02-26 21:22 | Emergency (ER) | payer MEDICAID, SELFPAY ==
[2024-02-26] VITALS (14 sets, daily range): BP systolic 90–119; BP diastolic 42–85; PULSE 59–92; RESP 12–24; TEMP 36.2–36.6; O2SAT 96–98
--- NOTE | 2024-02-26 21:15 | RT.EKG_ITS ---
APPROVED REPORT Exam: Resting ECG Reason for Exam: CHEST PAIN Patient Location: E HR:66 bpm ECG Measurements Heart Rate 66 AXIS MN 123 P 45 QRSd 95 QRS 57 QT 371 T 59 QTc 389 Conclusion Sinus rhythm 66 normal axis no stemi
--- NOTE | 2024-02-26 21:30 | DI.RAD_ITS ---
Exam(s) XR CHEST 2V PA LATERAL EXAM: XR CHEST 2V PA LATERAL CLINICAL HISTORY: chest pain TECHNIQUE: 2D digital imaging was performed. Two views. COMPARISON: CR,XR XR CHEST 2V PA LATERAL from 09/10/2023 FINDINGS: HEART: Normal size. Aorta: Not dilated. PULMONARY VASCULATURE: Normal. MEDIASTINUM: Unremarkable. LUNGS: Clear. Azygos lobe, normal variant. PLEURAL SPACE: No pleural effusion or pneumothorax. BONE:Unremarkable for age. SOFT TISSUES: Unremarkable. IMPRESSION: No acute abnormality. DATA REPOSITORY: RADIATION DOSE DELIVERED:
--- NOTE | 2024-02-26 21:51 | ED.GENADUL_ITS ---
Discharge Plan Disposition Patient Disposition: Home Condition: Stable Discharge Details Clinical Impression: Abdominal pain, Chest pain Primary Care Provider: JOSE ALEJANDRO MARIE ED Provider: Taylor Moon Home Meds and New Rx's Prescriptions: No Action albuterol sulfate 1.25 mg/3 mL Solution For Nebulization 1.25 mg continuous nebulization PRN PRN albuterol sulfate [Ventolin HFA] 60 PUFF HFA aerosol inhaler 2 puff Inhalation PRN PRN ibuprofen 600 mg tablet 600 mg PO TID Qty: 15 0RF Discharge Instructions Instructions: Abdominal Pain, Adult ED Additional Instructions: YOUR BLOOD WORK TONIGHT IS WITHIN NORMAL LIMITS, INCLUDING AN EVALUATION OF YOUR HEART YOUR URINE SAMPLE SHOWS NO SIGNS OF INFECTION YOUR CHEST XRAY IS NEGATIVE FOR ANY PNEUMONIA try to take some pepcid over the counter and follow up with your PCP for any further symptoms HPI General Date/Time Provider Initiated Documentation: 02/26/24 21:25 . Limitations to Documentation: no limitations . Information obtained by: patient . HPI Narrative: 23-year-old female with past medical history of asthma presents for evaluation of chest pain and abdominal pain. She reports that a week or ago she had a viral URI, but had recovered. She states that this morning she started having shooting pain across her abdomen. Pain is located at the top of her abdomen and radiates across the top. Not associated with nausea or vomiting. Has been eating well. Not associated with dysuria or hematuria. She reports pain across to her left chest. Not associated with cough or shortness of breath. She reports that her chest wall feels like it is bruised though she has not had any reason for it to be. She has never had symptoms like this before. Related Data Home Medications ?Medication ?Instructions ?Recorded ?Confirmed albuterol sulfate 90 mcg/actuation 2 puff inhalation PRN PRN 07/05/16 02/26/24 aerosol inhaler (Ventolin HFA) albuterol sulfate 1.25 mg/3 mL 1.25 mg continuous nebulization 01/15/21 02/26/24 solution for nebulization PRN PRN ibuprofen 600 mg tablet 600 mg PO TID #15 tabs 09/10/23 02/26/24 Previous Rx's ?Medication ?Instructions ?Recorded ibuprofen 600 mg tablet 600 mg PO TID #15 tabs 09/10/23 Allergies Allergy/AdvReac Type Severity Reaction Status Date / Time omeprazole AdvReac Intermediate Skin Rash Verified 02/26/24 21:32 and diarrhea ketorolac AdvReac anxious Verified 02/26/24 21:33 promethazine AdvReac panic Verified 02/26/24 21:32 enviromental Allergy Mild Other (See Uncoded 02/26/24 21:32 Comment) General Stated Complaint: Chest Pain MARY JANE: 3 Exam Narrative Exam Narrative: Review of Systems: All systems reviewed & are unremarkable except as noted in HPI and below Well-developed, no acute distress NCAT PERRL, normal conjunctiva RRR no chest wall tenderness Unlabored respiratory effort clear bilaterally Nondistended abdomen soft nontender no guarding or rebound Course Vital Signs Vital signs: Vital Signs Temperature 36.2 C L 02/26/24 21:24 Pulse 67 02/26/24 21:24 Respiratory Rate 20 02/26/24 21:24 Blood Pressure 119/85 02/26/24 21:24 Pulse Oximetry 98 02/26/24 21:24 Temperature 36.2 C L 02/26/24 21:24 Temperature Source Temporal Artery Scan 02/26/24 21:24 Pulse 67 02/26/24 21:24 Respiratory Rate 20 02/26/24 21:24 Respiratory Effort Normal, Non-Labored 02/26/24 21:30 Blood Pressure 119/85 02/26/24 21:24 Blood Pressure Position Supine 02/26/24 21:24 Pulse Oximetry 98 02/26/24 21:24 Oxygen Delivery Method Room Air 02/26/24 21:24 Oxygen Flow Rate 0 02/26/24 21:24 Pain Level 8 02/26/24 21:24 Medical Decision Making Emergent evaluation of chest and abdominal pain. On examination, the patient has no focal findings. Initial differential includes pancreatitis, gastroenteritis, GERD, low suspicion for cardiopulmonary etiology of symptoms. Patient has no risk factors for ACS or pulmonary embolism. EKG reviewed and independently interpreted: Sinus 66 normal axis no acute ischemic changes. I will get blood work, give medication to her IV and reassess. lab work reviewed. There are no clinically significant abnormalities. Troponin is undetectable. Urinalysis is not infected. Chest x-ray does not reveal consolidative process. At this time there is no indication for further emergent workup. Recommend Pepcid as needed for epigastric abdominal pain. Close follow-up with PCP. Quality:SDOH Health Related Social Needs: No Data to Display PFSH All Active Problems (Updated 02/26/24 @ 22:28 by Taylor Moon MD) Chest pain (Acute) Abdominal pain (Acute) Strain of left biceps (Acute) Insomnia (Acute) Medical History Migraine headache without aura Asthma Anxiety Surgical History H/O esophagogastroduodenoscopy Family History Mother Heart disease Stroke Social History Smoking/Tobacco Use Status: Never Smoking risk assessment performed?: Yes Alcohol Intake: never Drug use: Never Substance use type: does not use Household members: family Housing: apartment Number of Children: 0 Education Level: high school 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[employer] 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 PAWSS Have you Been Recently Intoxicated or Drunk Within the Last 30 days?: No Have you Ever Experienced Previous Episodes of Alcohol Withdrawal?: No Have you ever Experienced Withdrawal Seizures?: No Have you ever Experienced Delirium Tremens(DT)s?: No Have you ever undergone Alcohol Rehabilitation Treatment (i.e, inpt ot outpatient treatment programs)?: No Have you ever Experienced Blackouts?: No Have you ever Combined Alcohol with other Downers within the last 90 days?: No Have you ever Combined Alcohol with any other Substance of Abuse during the last 90 days?: No Positive Blood Alcohol level on Presentation? [PCS.BAL]: No Evidence of Increased Autonomic Activity (i.e. HR>120, tremor, sweating, agitation, nausea)?: No Result: 0
[2024-02-26] MEDS: Ondansetron 4 MG/2 ML VIAL IVP (21:54)
[2024-02-26] MEDS: Famotidine 20 MG/2 ML VIAL IVP (21:54)
[2024-02-26 22:09] LABS: Abs Immature Grans 0.02 10^3/uL (0.0-0.06); Absolute Basophil Count 0.06 10^3/uL (0.0-0.2); Absolute Eosinophil Count 0.08 10^3/uL (0.0-0.7); Absolute Lymphocyte Count 3.02 10^3/uL (1.2-3.4); Absolute Monocyte Count 0.54 10^3/uL (0.1-0.8); Absolute Neutrophil Count 4.88 10^3/uL (1.2-6.7); Basophils % 0.7 %; Eosinophils % 0.9 %; HCT 40.7 % (36.0-46.0); HGB 14.3 g/dL (11.2-15.7); Immature Grans % 0.2 %; Lymphocytes % 35.1 %; MCH 29.5 pg (27.0-33.0); MCHC 35.1 % (32.0-36.0); MCV 84 fL (80-95); MPV 9.4 fL (8.0-11.0); Monocytes % 6.3 %; Neutrophils % 56.8 %; Platelet Count 289 10^3/uL (130-400); RBC 4.84 10^6/uL (3.93-5.22); RDW-SD 36.4 fL
[2024-02-26 22:25] LABS: ALT 24 U/L (14-59); AST 20 U/L (15-37); Albumin 3.8 g/dL (3.4-5.0); Alkaline Phosphatase 74 U/L (46-116); BUN 10 mg/dL (7-18); Bilirubin, Total 0.17 mg/dL (0.2-1.0); CREATININE 0.7 mg/dL (0.55-1.02); Chloride 105 mmol/L (98-107); Estimated GFR 126.11 (mL/min/1.73m2); Glucose 89 mg/dL (74-106); Potassium 3.7 mmol/L (3.5-5.1); Sodium 142 mmol/L (136-145); Total Protein 7.9 g/dL (6.4-8.2); Troponin I < 4 ng/L (<or=51)
[2024-02-26 22:29] LABS: Bilirubin Negative (Negative); Blood Negative (Negative); Clarity Sl Cloudy (Clear); Glucose Negative (Negative); Ketones Negative (Negative); Leukocyte Esterase Negative (Negative); Nitrite Negative (Negative); Urobilinogen 0.2 mg/dL (Up to 0.2)
--- NOTE | 2024-02-27 00:26 | DI.VRAD_ITS ---
PROCEDURE INFORMATION: Exam: XR Chest Exam date and time: 02/26/2024 10:35 PM Age: 23 years old Clinical indication: Chest pain TECHNIQUE: Imaging protocol: Radiologic exam of the chest. Views: 2 views. COMPARISON: CR XR CHEST 2V PA LATERAL 09/10/2023 12:03 AM FINDINGS: Lungs: No alveolar infiltrate. Normal-variant azygos lobe of the superomedial right lung. Pleural spaces: No pleural fluid collection. No pneumothorax. Heart/Mediastinum: Normal heart size. Bones/joints: Unremarkable for patient age. IMPRESSION: No active pulmonary disease. No acute change compared to 09/10/2023. Dictated and Authenticated by: Nicola Johnson MD. Ordering:SALINA Spain MD
== END 2024-02-26 22:51 | disposition home or self-care (01) ==
LOC: ER 23:01
PROVIDERS: Emergency Provider Emergency Medicine; PCP Nurse Practitioner Family
DX: R07.9 Chest pain, unspecified (principal); R10.13 Epigastric pain; J45.909 Unspecified asthma, uncomplicated
CPT/HCPCS: 36415; 80053; 81025; 93005; 96374; 96375; 99285; 71046; 81003; 84484; 85025; 93010; 99284; J2405

== ENCOUNTER 2024-03-02 18:45 | Emergency (ER) | payer MEDICAID, SELFPAY ==
--- NOTE | 2024-03-02 18:45 | DI.RAD_ITS ---
Exam(s) XR HAND RT COMPLETE EXAM: XR HAND RT COMPLETE CLINICAL HISTORY: pain and swelling x 2 weeks. TECHNIQUE: 2D digital imaging was performed. COMPARISON: No exams were available for comparison FINDINGS: 3 views No evidence of fracture or dislocation nor abnormal soft tissue densities. Bone density normal. No osseous lesions. No erosions. No radiopaque foreign bodies. IMPRESSION: No acute osseous findings in the right hand. DATA REPOSITORY: RADIATION DOSE DELIVERED:
[2024-03-02 18:49] VITALS: BP 137/85; PULSE 77; RESP 18; TEMP 36.1; O2SAT 98
[2024-03-02] MEDS: Ibuprofen 600 MG TAB PO (19:19)
[2024-03-02] MEDS: Acetaminophen 500 MG TAB 1000 MG PO (19:19)
[2024-03-02 19:50] VITALS: RESP 16; O2SAT 98
--- NOTE | 2024-03-02 20:07 | ED.GENADUL_ITS ---
Discharge Plan Disposition Patient Disposition: Home Condition: Stable Discharge Details Clinical Impression: Hand pain, right Primary Care Provider: JOSE ALEJANDRO MARIE ED Provider: Mercedez Griffiths Home Meds and New Rx's Prescriptions: New diclofenac sodium 1 % gel 2 g topical QID Qty: 100 0RF Rx Instructions: apply to single elbow, wrist or hand; for hand includes palm/fingers/back of hand No Action albuterol sulfate 1.25 mg/3 mL Solution For Nebulization 1.25 mg continuous nebulization PRN PRN albuterol sulfate [Ventolin HFA] 60 PUFF HFA aerosol inhaler 2 puff Inhalation PRN PRN ibuprofen 600 mg tablet 600 mg PO TID Qty: 15 0RF Discharge Instructions Instructions: Hand Pain (DC) Additional Instructions: You were seen in the emergency department today for evaluation of hand pain. In our department you had a full physical examination performed, had an x-ray that did not show any signs of obvious fractures, dislocations, or other abnormalities which might explain your symptoms. Unfortunately, we are sometimes unable to determine the exact cause of pain in the emergency department, and we recommend that you trial diclofenac gel, and anti- inflammatory medication that can be applied directly to the area of pain. Please continue to use Tylenol with this medication but do not mix this medication with NSAIDs such as ibuprofen or naproxen. You can continue to use ice and heat as needed, and should follow-up with your primary care provider in the next few days to discuss this visit and any symptoms that change, worsen, or persist. As we discussed, if our radiologist notes anything else on your x-ray, you will be contacted. Thank you for allowing us to be part of your care. HPI General Mode of arrival: ambulatory . Date/Time Provider Initiated Documentation: 03/02/24 18:51 . Limitations to Documentation: no limitations . Information obtained by: patient, family and old records reviewed . HPI Narrative: HPI: This is a 23-year-old female patient presenting for evaluation of 2 weeks of right hand pain. She reports that she did not experience a specific injury to that hand, but has noted pain and stiffness especially when she uses that hand. Tonight she was throwing a beanbag at [employer] and had a sudden episode of pain and stiffness, prompting her to seek care. She reports that she has a strong family history of rheumatoid arthritis but she herself has not been diagnosed with same. She has not noted any overlying skin changes but she did have a little bit of swelling of the hands. She was able to remove her ring, has not noted rashes. No recent tick bites or exposures. She has been using Tylenol and ibuprofen for management of pain, has not taken any today. This is an isolated complaint Exam: Gen: Awake and alert, in no apparent distress HEENT: Non-icteric sclera Neck: Supple Lungs: No apparent respiratory distress, normal respiratory effort. CV: Appears well perfused Abdomen: Non-distended MSK: Moves 4 extremities without apparent limitation in ROM. Tenderness to palpation over the ulnar aspect of the right hand, with no deformity or overlying skin changes. Very mild soft tissue swelling noted, full range of motion of the hand and fingers. CSM's intact and symmetrical bilaterally, patient does note some tingling and shooting of pain with movement of her hand across the palmar aspect without sensory loss Skin: Visualized skin without rashes, cyanosis. Neuro: Normal Gait, no obvious focal deficits or facial asymmetry. Speaks in full, clear sentences. Psych: Appropriate for situation. MDM: This is a 23-year-old female patient presenting for evaluation of 2 weeks of hand pain. My differential includes but is not limited to sprain/strain, certainly considered occult fracture or dislocation. Initially considered arthritis including osteoarthritis, rheumatoid arthritis. The patient has no redness, swelling, or warmth to increase my concern for septic arthritis or infection. Without risk factors or history of gout or pseudogout. No evidence for neurovascular derangement. We will obtain an x-ray and I will provide the patient with Tylenol and ibuprofen for management of pain. ED Course: Independently interpreted the patient's x-ray, which does not show any significant abnormalities to account for her symptoms. I shared these findings with the patient, the [facility] radiology read pending, and the patient should follow-up with her primary care provider for reassessment. I did provide her with a prescription for diclofenac gel and recommended that she trial this instead of ibuprofen. She was provided with a universal wrist splint for comfort. At this time, the patient has had a full medical evaluation and is safe for discharge to home. They are hemodynamically stable, ambulatory, and tolerating PO. They are understanding of the follow-up plan and return precautions. They left our facility without incident. Mercedez Griffiths MD Related Data Home Medications ?Medication ?Instructions ?Recorded ?Confirmed albuterol sulfate 90 mcg/actuation 2 puff inhalation PRN PRN 07/05/16 03/02/24 aerosol inhaler (Ventolin HFA) albuterol sulfate 1.25 mg/3 mL 1.25 mg continuous nebulization 01/15/21 03/02/24 solution for nebulization PRN PRN ibuprofen 600 mg tablet 600 mg PO TID #15 tabs 09/10/23 03/02/24 diclofenac sodium 1 % topical gel 2 g topical QID #100 grams 03/02/24 Previous Rx's ?Medication ?Instructions ?Recorded ibuprofen 600 mg tablet 600 mg PO TID #15 tabs 09/10/23 diclofenac sodium 1 % topical gel 2 g topical QID #100 grams 03/02/24 Allergies Allergy/AdvReac Type Severity Reaction Status Date / Time omeprazole AdvReac Intermediate Skin Rash Verified 03/02/24 18:50 and diarrhea ketorolac AdvReac anxious Verified 03/02/24 18:50 promethazine AdvReac panic Verified 03/02/24 18:50 enviromental Allergy Mild Other (See Uncoded 03/02/24 18:50 Comment) General Stated Complaint: Orthopedic MARY JANE: 4 Course Vital Signs Vital signs: Vital Signs Temperature 36.1 C L 03/02/24 18:49 Pulse 77 03/02/24 18:49 Respiratory Rate 18 03/02/24 18:49 Blood Pressure 137/85 03/02/24 18:49 Pulse Oximetry 98 03/02/24 18:49 Temperature 36.1 C L 03/02/24 18:49 Temperature Source Skin 03/02/24 18:49 Pulse 77 03/02/24 18:49 Respiratory Rate 18 03/02/24 18:49 Respiratory Effort Normal, Non-Labored 03/02/24 18:50 Blood Pressure 137/85 03/02/24 18:49 Blood Pressure Position Sitting 03/02/24 18:49 Pulse Oximetry 98 03/02/24 18:49 Oxygen Delivery Method Room Air 03/02/24 18:49 Oxygen Flow Rate 0 03/02/24 18:49 Pain Level 8 03/02/24 19:21 Lab/Test Results Lab/Test Results: POC- Test(urine) Negative Medical Decision Making Quality:SDOH Health Related Social Needs: No Data to Display PFSH All Active Problems (Updated 03/02/24 @ 20:23 by Mercedez Griffiths MD) Hand pain, right (Acute) Chest pain (Acute) Abdominal pain (Acute) Strain of left biceps (Acute) Insomnia (Acute) Medical History Migraine headache without aura Asthma Anxiety Surgical History H/O esophagogastroduodenoscopy Family History Mother Heart disease Stroke Social History Smoking/Tobacco Use Status: Never Smoking risk assessment performed?: Yes Alcohol Intake: never Drug use: Never Substance use type: does not use Household members: family Housing: apartment Number of Children: 0 Education Level: high school 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
[2024-03-02 20:36] VITALS: BP 128/78; PULSE 70; RESP 16; O2SAT 98
--- NOTE | 2024-03-02 20:58 | DI.VRAD_ITS ---
PROCEDURE INFORMATION: Exam: XR Right Hand Exam date and time: 03/02/2024 7:18 PM Age: 23 years old Clinical indication: Hand and other: Pain and swelling x 2 weeks; Right TECHNIQUE: Imaging protocol: Radiologic exam of the right hand. Views: 3 or more views. COMPARISON: CR XR wrist RT complete 03/23/2018 6:18 PM FINDINGS: Bones/joints: Four views of the right hand reveal no acute fracture, dislocation, or other osseous abnormality. Soft tissues: No gross focal soft tissue abnormality is seen. No radiopaque foreign body is demonstrated. IMPRESSION: No acute fracture, dislocation, or other osseous abnormality is seen in the right hand. Dictated and Authenticated by: Ranjit Orozco MD. Ordering:TEN Marie MD
--- NOTE | 2024-03-05 15:14 | NUR.NOTE ---
Access chart to determine what type splint put on patient for [facility] billing purposes. Nursing Note:
== END 2024-03-02 20:36 | disposition home or self-care (01) ==
PROVIDERS: Emergency Provider Emergency Medicine; PCP Nurse Practitioner Family
DX: M79.641 Pain in right hand (principal)
CPT/HCPCS: 81025; 99284; 73130

== ENCOUNTER 2024-04-14 21:21 | Emergency (ER) | payer MEDICAID, SELFPAY ==
[2024-04-14 21:27] VITALS: BP 132/94; PULSE 95; RESP 18; TEMP 36.5; O2SAT 98
--- OUTSIDE RECORDS SUMMARY | 2024-04-14 21:50 | XMS_ITS | Encounter Summary ---
Author Organization [facility] [place] [address] Care Team Providers Care Space Control Agent Name Role Phone None Primary Care Provider Unavailabl e Encounter Details Date Type Department Care Team (Late st Contact Info) Description 07/25/2023 Orders [place] [address] Tasha Peralta APRN [facility] [place] [address] Nausea and vomiting, unspecified vomiting type; Functional dyspepsia; Abdominal bloating Social History Tobacco Use Types Packs/Day Years Used Date Smoking Tobacco: Passive Smo ke Exposure - Never Smoker Smokeless Tobacco: Never Alcohol Use Standard Drinks/Week Comments Never 0 (1 standard drink = 0.6 oz pur e alcohol) Sex and Gender Information Value Date Recorded Sex Assigned at Not on file Gender Identity Not on file Sexual Orientation Not on file documented as of this encounter Plan of Treatment Scheduled Orders Name Type Priority Associated Diagnoses Orde r Schedule ENDOSCOPY CASE REQUEST: EGD, UPPER GI ENDOSCOPY (WRVU 2.09) Procedures Routine Nausea and vomiting, unspecified vomiting type Functional dyspepsia Abdominal bloating Ordered: 07/25/2023 Scheduled Procedures Name Priority Associated Diagnoses Date/Ti me EGD, UPPER GI ENDOSCOPY (WRV U 2.09) Nausea and vomiting, unspecified vomiting type Functional dyspepsia Abdominal bloating documented as of this encounter Visit Diagnoses Diagnosis Nausea and vomiting, unspecified vomiting type Functional dyspepsia Dyspepsia and other specified disorders of function of stomach Abdominal bloating Flatulence, eructation, and gas pain documented in this encounter Care Teams Space Control Agent Relationship Specialty Start Date End Date None None PCP - General 06/05/22 documented as of this encounter
--- OUTSIDE RECORDS SUMMARY | 2024-04-14 21:50 | XMS_ITS | Encounter Summary ---
[place] [address] Care Team Providers Care Multifocal Button Inspector Name Role Phone None Primary Care Provider Unavailabl e Reason for Visit * Diagnostic Test (Routine) - Closed Specialty Diagnoses / Procedures Referred By Kathryn early Referred To Contact Radiology Diagnoses Diarrhea, unspecified type Chronic abdominal pain Procedures NM Gastric Emptying Scan Hugo De Oliveira MD [facility] [place] [address] [place] [address] Referral ID Status Reason Start Date Expiration Date V isits Requested Visits Authorized [id number] Closed Specialty Service Requested 04/11/2022 10/10/2023 1 1 Encounter Details Date Type Department Care Team (Latest Contact Info) Description 06/05/2022 10:19 AM EDT - 06/05/2022 11:59 PM EDT Hospital Encounter [place] [address] Hugo De Oliveira MD [facility] [place] [address] Discharge Disposition: Home Social History Tobacco Use Types Packs/Day Years [...] on file documented as of this encounter Medications at Time of Discharge Medication Sig Dispensed Refills Start Date End Date albuteroL (ACCUNEB) 1.25 mg/3 mL Solution for Nebulization as needed. 01/15/2021 benzonatate (TESSALON) 200 mg Capsule TAKE ONE CAPSULE BY MOUTH THREE TIMES A DAY NEEDED FOR COUGH 03/13/2022 PROAIR HFA 90 mcg/actuation HFA Aerosol Inhaler INHALE 2 PUFFS BY MOUTH BEFORE EXERCISE NEEDED 01/21/2019 documented as of this encounter Plan of Treatment Scheduled Procedures Name Priority Associated Diagnoses Date/Ti me EGD, UPPER GI ENDOSCOPY (WRV U 2.09) Nausea and vomiting, unspecified vomiting type Functional dyspepsia Abdominal bloating documented as of this encounter Procedures Procedure Name Priority Date/Time Associated Diagnosis Comments NM GASTRIC EMPTYING SCAN Routine 06/05/2022 1:32 PM EDT Diarrhea, unspecified type Chronic abdominal pain documented in this encounter Results * NM Gastric Emptying Scan (06/05/2022 1:32 PM EDT) Anatomical Region Laterality Modality Nuclear Medicine Impressions 06/05/2022 3:31 PM EDT Normal gastric emptying. I have personally reviewed the image(s) and the resident's interpretation and agree with the findings, Perfecto Rudolph MD at 06/05/2022 3:31 PM Thank you for letting us participate in the care of this patient. ??If you are a health care provider and have any questions regarding this report, please contact the number below. ??For patients who have questions please contact the health child care sitter that requested your imaging first. ? Electronically signed by: Perfecto Rudolph MD, [facility] ([phone]), at 06/05/2022 3:31 PM Narrative 06/05/2022 3:31 PM EDT EXAMINATION: NM GASTRIC EMPTYING SCAN CLINICAL HISTORY: nausea. if gastric emptying delayed at 4 hours, please also comment if combined gastric/small bowel transit time is more/less than 3 hours (7 hours total) TECHNIQUE: A standard meal was labeled with 0.6 mCi of Technetium-99m sulfur colloid and ingested. Images of the stomach were obtained in the anterior and posterior projections immediately thereafter and 1, 2, and 3 hours later. COMPARISON: None FINDINGS: Activity fills the stomach on the initial images obtained immediately after ingesting the meal. Small bowel is visible at one hour. There is minimal activity present in the stomach at 3 hours. Quantitative analysis: 2 hours: 14 percent remains in the stomach (normal less than 60%) 3 hours: 2 percent remains in the stomach (normal less than 10% at four hours) Procedure Note Perfecto Rudolph MD - 06/05/2022 EXAMINATION: NM GASTRIC EMPTYING SCAN CLINICAL HISTORY: nausea. if gastric emptying delayed at 4 hours, pleasealso comment if combined gastric/small bowel transit time is more/less than 3hours (7 hours total) TECHNIQUE: A standard meal was labeled with 0.6 mCi of Technetium-99msulfur colloid and ingested. Images of the stomach were obtained in the anteriorand posterior projections immediately thereafter and 1, 2, and 3 hourslater. COMPARISON: None FINDINGS: Activity fills the stomach on the initial images obtained immediatelyafter ingesting the meal. Small bowel is visible at one hour. There is minimal activity present in the stomach at 3 hours. Quantitative analysis: 2 hours: 14 percent remains in the stomach (normal less than 60%) 3 hours: 2 percent remains in the stomach (normal less than 10% at fourhours) IMPRESSION Normal gastric emptying. I have personally reviewed the image(s) and the resident's interpretationand agree with the findings, Perfecto Rudolph MD at 06/05/2022 3:31 PM Thank you for letting us participate in the care of this patient. If youare a health care provider and have any questions regarding this report,please contact the number below. For patients who have questions please contactthe health child care sitter that requested your imaging first. Electronically signed by: Perfecto Rudolph MD, [facility]([phone]), at 06/05/2022 3:31 PM Hugo De Oliveira MD IMG NM ORDERABLES documented in this encounter Visit Diagnoses Not on filedocumented in this encounter Care Teams Multifocal Button Inspector Relationship Specialty Start Date End Date None None PCP - General 06/05/22 documented as of this encounter
--- OUTSIDE RECORDS SUMMARY | 2024-04-14 21:50 | XMS_ITS | Encounter Summary ---
[place] [address] Care Team Providers Care Manager Cosmetic Name Role Phone None Primary Care Provider Unavailabl e Encounter Details Date Type Department Care Team (Latest Contact Info) Description 06/05/2022 2:15 PM EDT Laboratory Appointment Lab [address] [place] [id number] Diarrhea, unspecified type; Chronic abdominal pain Social History Tobacco Use Types Packs/Day Years [...] Procedure Name Priority Date/Time Associated Diagnosis Comments HC THYROID STIMULATING HORMONE, SERUM Routine 06/05/2022 2:32 PM EDT Diarrhea, unspecified type Chronic abdominal pain HC VENIPUNCTURE Routine 06/05/2022 2:32 PM EDT Diarrhea, unspecified type Chronic abdominal pain HC IGA, SERUM Routine 06/05/2022 2:32 PM EDT Diarrhea, unspecified type Chronic abdominal pain HC IGG, SERUM Routine 06/05/2022 2:32 PM EDT Diarrhea, unspecified type Chronic abdominal pain documented in this encounter Results * [facility] [place] (06/05/2022 2:32 PM EDT) Thyroid Stimulating Hormone 1.49 0.27 - 4.20 mcIU/mL [facility] Comment: Reference Interval (mcIU/mL): Females: ??First Trimester: 0.23-3.88 ??Second Trimester: 0.22-3.90 ??Third Trimester: 0.44-4.66 Blood 06/05/2022 2:32 PM EDT 06/05/2022 2:40 PM EDT Narrative Resulting Agency Comment Spec In Lab Hugo De Oliveira MD CHEMISTRY ORDERABLES Performing Organization Address [facility] Co de Phone Number [facility] [address] * IgA (06/05/2022 2:32 PM EDT) IgA 190 61 - 348 mg/dL [facility] Blood 06/05/2022 2:32 PM EDT 06/05/2022 2:40 PM EDT Narrative Resulting Agency Comment Spec In Lab Hugo De Oliveira MD CHEMISTRY ORDERABLES Performing Organization Address [facility] Co de Phone Number [facility] [address] * IgG (06/05/2022 2:32 PM EDT) Immunoglobulin G 1,287 700 - 1,600 mg/dL [facility] Comment: Pediatric Reference Intervals obtained from the Caliper Reference Interval project. http://www.sickkids.ca/caliperproject/index.html Blood 06/05/2022 2:32 PM EDT 06/05/2022 2:40 PM EDT Narrative Resulting Agency Comment Spec In Lab Hugo De Oliveira MD CHEMISTRY ORDERABLES Performing Organization Address [facility] Co de Phone Number [facility] [place] [address] * Tissue transglutaminase, IgA (06/05/2022 2:32 PM EDT) TTG IgA Ab 0.4 <=10.0 u/ml [facility] Comment: Negative: ??<7 units/mL Indeterminate: 7-10 units/mL Positive: ??>10 units/mL Blood 06/05/2022 2:32 PM EDT 06/06/2022 7:06 AM EDT Narrative Resulting Agency Comment Spec In Lab Hugo De Oliveira MD IMMUNOLOGY ORDERABLE S Performing Organization Address [facility] Co de Phone Number [facility] [address] documented in this encounter Visit Diagnoses Diagnosis Diarrhea, unspecified type Chronic abdominal pain Abdominal pain, unspecified site documented in this encounter Care Teams Manager Cosmetic Relationship Specialty Start Date End Date None None PCP - General 06/05/22 documented as of this encounter
--- OUTSIDE RECORDS SUMMARY | 2024-04-14 21:50 | XMS_ITS | Encounter Summary ---
Author Organization [facility] Address [facility] [place] [address] Care Team Providers Care Adjunct Professor Name Role Phone None Primary Care Provider Unavailabl e Reason for Visit * Consultation (Routine) - Closed Specialty Diagnoses / Procedures Referred By Kathryn early Referred To Contact Gastroenterology Diagnoses Functional dyspepsia Hugo De Oliveira MD [facility] [place] [address] [facility] [address] [place] [address] Referral ID Status Reason Start Date Expiration Date V isits Requested Visits Authorized [id number] Closed Continuity of Care 05/15/2023 05/14/2024 1 1 Encounter Details Date Type Department Care Team (Late st Contact Info) Description 07/26/2023 2:00 PM EDT Clinical [place] [address] [facility] [place] [address] Functional dyspepsia; Irritable bowel syndrome with both constipation and diarrhea; Abdominal bloating; Abdominal pain, unspecified abdominal location; Nutritional counseling Social History Tobacco Use Types Packs/Day Years [...] on file documented as of this encounter Last Filed Vital Signs Vital Sign Reading Time Taken Comments Blood Pressure 131/70 07/26/2023 2:15 PM EDT Pulse 80 07/26/2023 2:15 PM EDT Temperature - - Respiratory Rate - - Oxygen Saturation - - Inhaled Oxygen Concentration - - Weight 77.6 kg (171 lb 1.6 oz) 07/26/2023 2:15 P M EDT Height 149.9 cm (4' 11) 07/26/2023 2:15 PM EDT Body Mass Index 34.56 07/26/2023 2:15 PM EDT documented in this encounter Progress Notes * Andreina Reddy, RD - 07/26/2023 2:00 PM EDT Medical Nutrition Therapy-Department of Gastroenterology and Hepatology Reason for visit: Referral from Tasha Peralta: Work with the [facility] Assistant Wt Readings from Last 5 Encounters: 07/26/23 77.6 kg (171 lb 1.6 oz) 05/15/23 78.6 kg (173 lb 4.8 oz) 09/27/22 71.4 kg (157 lb 8 oz) (86%)* 04/11/22 64.7 kg (142 lb 9.6 oz) (74%)* 04/02/19 59.6 kg (131 lb 6.4 oz) (70%)* * Growth percentiles are based on CDC (Girls, 2-20 Years) data. Ht Readings from Last 5 Encounters: 07/26/23 149.9 cm (4' 11) 07/06/23 149.9 cm (4' 11) 05/15/23 149.9 cm (4' 11) 09/27/22 149.9 cm (4' 11) (2%)* 04/11/22 151.1 cm (4' 11.5) (3%)* * Growth percentiles are based on CDC (Girls, 2-20 Years) data. Body mass index is 34.56 kg/m??. Assessment: Clare is a 22 y.o. female with history significant for dyspepsia and change in bowel pattern starting after COVID vaccine March [address]. [address] De Oliveira's and Tasha Peralta's notes that Clare haschronic altered bowel pattern with associated abdominal discomfort and bloating consistent with IBS- mixed. A HBT was also ordered to rule out SIBO. Noted endoscopy also ordered. We are meeting in person to discuss potential nutritional strategies to help control her GI symptoms. Clare was 14 minutes late for her appointment today due to construction traffic. She reports that symptoms started when had first covid vaccine in 2020. She has another endoscopy ordered. Has daily irregular BM's, thought that may be constipated. Hasn't had chance to try miralax yet. 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 Would need to try new things on the weekend so that it doesn't interfere with work. Daily abdominal pain (sharp pains); Usually doesn't eat breakfast, very little lunch or dinner. Starts to hurt when stomach hungry. Lunch is usually Salad or homemade soups from market, or leftovers Dinner is meat, potato, vegetable Had wisdom teeth out a few weeks ago, so now more conscious. Tries to eat more fruits and vegetables. Salad-lettuce, cucumber, tomato, green pepper, cheese Limits processed and prepared In beginning lost 15-20 lbs but within the past year has gained it back and more. Past Therapies: Omeprazole - diarrhea Zofran prn Fiber rich diet Exercise Noted celiac screen negative. We touched on the low fodmap diet, it's purpose and efficacy for IBS related symptoms. It's also used to try to decrease SIBO symptoms. Based on our conversation today, I think that Clare should waitto do this because she does not seem ready to make changes to her diet at this time even if temporary. Understand and support this decision. We can always discuss another time if she wishes to pursue. Also discussed important of reintroduction. At this time, she is interested in trying enteric coated peppermint oil or peppermint tea if she does not have GERD. Explained our rationale behind trying this. She asked about the medications that were recommended by Tasha Peralta, based on Tasha's note, encouraged Clare to discuss these questions with her PCP given there are clear recommendations for dosingand titration. She plans to do this. Also discussed rationale behind why we recommend trying fiber therapy for bowel regularity. Diet Therapy: try peppermint tea or enteric coated peppermint oil for gut relaxation; consider trial of fiber therapy; consider learning more about low fodmap diet Nutrition status: better, she has gained back the weight she lost, would like to lose weight now Malnutrition Present? No Recommendations/Plan: Try Tasha's recommendations (OK if want to try one at a time): Simethicone (Gas-X) can be helpful for occasional usage for painful bloating Consider trying enteric-coated peppermint for upper GI symptoms and bloating. Consider adding fiber with start low and go slow method Consider learning more about temporary elimination diet to see if might help manage symptoms (she would like to hold off on changing her diet right now) such as the low fodmap diet--reassured her that I would be able to help her with a plan Follow with me after results of HBT and endoscopy if needed depending on results Please reach out with questions/concerns/updates Time Spent face to face: [address] documented in this encounter Plan of Treatment Scheduled Procedures Name Priority Associated Diagnoses Date/Ti me EGD, UPPER GI ENDOSCOPY (WRV U 2.09) Nausea and vomiting, unspecified vomiting type Functional dyspepsia Abdominal bloating documented as of this encounter Visit Diagnoses Diagnosis Functional dyspepsia Dyspepsia and other specified disorders of function of stomach Irritable bowel syndrome with both constipation and diarrhea Abdominal bloating Flatulence, eructation, and gas pain Abdominal pain, unspecified abdominal location Nutritional counseling documented in this encounter Care Teams Adjunct Professor Relationship Specialty Start Date End Date None None PCP - General 06/05/22 documented as of this encounter
--- OUTSIDE RECORDS SUMMARY | 2024-04-14 21:50 | XMS_ITS | Encounter Summary ---
[place] [address] Care Team Providers Care Telecommunications Project Manager Name Role Phone None Primary Care Provider Unavailabl e Encounter Details Date Type Department Care Team (Latest Contact Info) Description 06/05/2022 Travel Social History Tobacco Use Types Packs/Day Years [...] documented as of this encounter Visit Diagnoses Not on filedocumented in this encounter Care Teams Telecommunications Project Manager Relationship Specialty Start Date End Date None None PCP - General 06/05/22 documented as of this encounter
--- OUTSIDE RECORDS SUMMARY | 2024-04-14 21:50 | XMS_ITS | Encounter Summary ---
Author Organization [facility] Address [facility] Karissa carrero [place] [id number] Care Team Providers Care Chief Compressor Station Engineer Name Role Phone None Primary Care Provider Unavailabl e Reason for Referral * Consultation (Routine) - Closed Specialty Diagnoses / Procedures Referred By Kathryn t Referred To Contact Gastroenterology Diagnoses Functional dyspepsia - group Hugo Kirby MD [facility] [place] [address] Annmarie Vang, PhD [facility] [place] [address] Referral ID Status Reason Start Date Expiration Date V isits Requested Visits Authorized [id number] Closed Consult, Test & Treat 05/15/2023 05/14/2024 1 1 * Consultation (Routine) - Closed Specialty Diagnoses / Procedures Referred By Kathryn early Referred To Contact Gastroenterology Diagnoses Functional dyspepsia Hugo Kirby MD [facility] [place] [address] [facility] [place] [address] Referral ID Status Reason Start Date Expiration Date V isits Requested Visits Authorized [id number] Closed Continuity of Care 05/15/2023 05/14/2024 1 1 Encounter Details Date Type Department Care Team (Late st Contact Info) Description 05/15/2023 2:30 PM EST Office [place] [address] Hugo Kirby MD [facility] [place] [address] Functional dyspepsia; Irritable bowel syndrome with both constipation and diarrhea Social History Tobacco Use Types Packs/Day Years [...] Sign Reading Time Taken Comments Blood Pressure 125/61 05/15/2023 2:31 PM EST Pulse 72 05/15/2023 2:31 PM EST Temperature - - Respiratory Rate - - Oxygen Saturation - - Inhaled Oxygen Concentration - - Weight 78.6 kg (173 lb 4.8 oz) 05/15/2023 2:31 P M EST Height 149.9 cm (4' 11) 05/15/2023 2:31 PM EST Body Mass Index 35 05/15/2023 2:31 PM EST documented in this encounter Progress Notes * Hugo Kirby MD - 05/15/2023 2:30 PM EST Images from the original note were not included. Chief Complaint: Yang Kline is a 22 [address] of [address] Caicedo here for follow-up of No chief complaint on file. . Detailed history: I last saw her September 27, 2022 my thoughts at that time were as follows: Assessment/Plan: Ms. Kline is a 21 y.o. patient with the following issues: 1. One year history of chronic dyspepsia symptoms. Sudden onset coincided with timing COVID vaccination March 2021. Sudden onset of N/V/diarrhea. No sick contacts. No antibiotics. Ongoing symptoms since then. She describes early satiety, post-prandial bloating, and upper abdominal burning pain. 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 Given the rather acute onset of symptoms and lack of preceding symptomatology this is suspicious for a postinfectious phenomena. . 2. Chronic altered bowel pattern with associated abdominal discomfort and bloating consistent with IBS -diarrhea predominant (IBS-D). We discussed that complete symptom relief may not be a fully achievable goal for this chronic condition, but that improvement in quality of life, healthy days at work and family functions, and also general symptom improvement may be more reasonable goals. We discussed that treatments should be tried individually and for periods of at least 4-8 weeks to truly assess symptom response. I did my bestto answer questions to the fullest ability. We discussed that recommended treatments should be tried individually for at least three months at a time to truly assess for a meaningful response, or as long as tolerated, before changing therapy. Recommendations: We further discussed GI functional/motility disorders in depth today including pathophysiology, expected course, impact and treatment categories We also discussed realistic goals (with emphasis on improved quality of life) and patient responsibilities. Please see the patient handout for recommendations on general treatment measures including lifestyle, dietary, and non-prescription pharmacologic options. Consider duplex U/S if refractory pain Consider referral to GI psychology to work on specific psychologic measures for functional disorders Consider referral to GI dietitian RTC in 4 months with motility RAJ to further consolidate the GI care plan for the patient's local team. Due to the consultative nature of our practice, the patient should continue to work with PCP asthe primary point of contact for urgent issues, medication refills and adjustments as needed for continuity of care purposes in between visits to our center based on the recommendations above. Interval history: Concerned with 50 lb weight gain over last year Dyspepsia - pain predominant on regular basis Intermittent more severe RUQ pain Bowel moving regularly Current Regimen: Sertraline 25 mg nightly Cyproheptadine 4 mg once a day Past Therapies: Omeprazole - diarrhea Zofran prn Fiber rich diet Exercise Review of systems: 14-system ROS reviewed and negative except as above Medications: Outpatient Medications Prior to Visit Medication Sig Dispense Refill benzonatate (TESSALON) 200 mg Capsule TAKE ONE CAPSULE BY MOUTH THREE TIMES A DAY NEEDED FOR COUGH PROAIR HFA 90 mcg/actuation HFA Aerosol Inhaler INHALE 2 PUFFS BY MOUTH BEFORE EXERCISE NEEDED No facility-administered medications prior to visit. Allergies: is allergic to compazine [prochlorperazine] and omeprazole magnesium. Past Medical History: has a past medical history of Asthma, Headache, and Migraines. Past Surgical History: has a past surgical history that includes Colonoscopy, Biopsy (55912) (N/A, 05/08/2022). Family History: family history includes No Known Problems in her father and mother. denies family history of colon cancer, IBD, or celiac disease in mother father or other family members Social History: reports that she is a non-smoker but has been exposed to tobacco smoke. She has never used smokeless tobacco. She reports that she does not drink alcohol and does not use drugs. Physical Exam: VITAL SIGNS: There were no vitals taken for this visit. BMI: There is no height or weight on file to calculate BMI. Gen: nad, normal body habitus Eyes: no scleral icterus CV: rrr, no m/r/g, radial pulse 2+, no pedal edema Pulm: ctab, normal respiratory effort GI: soft without masses, nontender, nondistended, normoactive bowel sounds, no hernias Skin: warm, dry, no rashes, no induration Neurologic: intact to light touch Psych: appropriate affect, a+ox3 Questionnaire: No data to display Laboratory studies, imaging, and procedures: nil Assessment/Plan: Ms. Kline is a 22 y.o. patient with the following issues: 1. One year history of chronic dyspepsia symptoms. Sudden onset coincided with timing COVID vaccination March 2021. Sudden onset of N/V/diarrhea. No sick contacts. No antibiotics. Ongoing symptoms since then. She describes early satiety, post-prandial bloating, and upper abdominal burning pain. 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 Given the rather acute onset of symptoms and lack of preceding symptomatology this is suspicious for a postinfectious phenomena. . 2. Chronic altered bowel pattern with associated abdominal discomfort and bloating consistent with IBS -diarrhea predominant (IBS-D). Stable 3. New episodic RUQ pain - ? Biliary colic We discussed that complete symptom relief may not be a fully achievable goal for this chronic condition, but that improvement in quality of life, healthy days at work and family functions, and also general symptom improvement may be more reasonable goals. We discussed that treatments should be tried individually and for periods of at least 4-8 weeks to truly assess symptom response. I did my bestto answer questions to the fullest ability. We discussed that recommended treatments should be tried individually for at least three months at a time to truly assess for a meaningful response, or as long as tolerated, before changing therapy. Recommendations: We further discussed GI functional/motility disorders in depth today including pathophysiology, expected course, impact and treatment categories We also discussed realistic goals (with emphasis on improved quality of life) and patient responsibilities. Please see the patient handout for recommendations on general treatment measures including lifestyle, dietary, and non-prescription pharmacologic options. RUQ +/- HIDA scan Referral to GI behavioral health to work on specific psychologic measures for functional disorders Referral to GI dietitian Consider duplex U/S if refractory pain Consider trial alternate PPI (such as pantoprazole) Follow-up with PCP to address mental health issues - could be contributing to GI issues Consider trial of neuromodulation such as TCA RTC in 4-6 months with motility RAJ to further consolidate the GI care plan for the patient's localteam. Due to the consultative nature of our practice, the patient should continue to work with PCP as the primary point of contact for urgent issues, medication refills and adjustments as needed for continuity of care purposes in between visits to our center based on the recommendations above. TIME SPENT WITH PATIENT Time spent reviewing records prior to this encounter on day of appointment: 3 minutes Time spent during encounter with patient including counselin minutes Time spent documenting encounter after office visit: 2 minutes Hugo Kirby MD [facility] [place] [phone] documented in this encounter Plan of Treatment Scheduled Procedures Name Priority Associated Diagnoses Date/Ti me EGD, UPPER GI ENDOSCOPY (WRV U 2.09) Nausea and vomiting, unspecified vomiting type Functional dyspepsia Abdominal bloating Scheduled Referrals Name Type Priority Associated Diagnoses Order Schedule Referral to Nutrition Services Outpatient Referral Routine Functional dyspepsia Ordered: 05/15/2023 Amb Referral to GI Behavioral Health Outpatient Referral Routine Functional dyspepsia Ordered: 05/15/2023 documented as of this encounter Results * US Abdomen Limited (06/22/2023 10:18 AM EDT) Anatomical Region Laterality Modality Abdomen Ultrasound 06/22/2023 10:1 8 AM EDT Impressions 06/22/2023 10:35 AM EDT 1. ??Normal size and echotexture of the liver. No focal hepatic lesion. 2. ??Patent main portal vein with hepatopetal flow. No perihepatic fluid. 3. ??Normal appearing gallbladder. No cholelithiasis or acute cholecystitis. No biliary duct dilatation. 4. ??Partial visualization of the pancreas which appears normal where seen. 5. ??Normal appearing right kidney. I have personally reviewed the image(s) and the resident's interpretation and agree with the findings, Mikel Finnegan MD at 06/22/2023 10:28 AM Thank you for letting us participate in the care of this patient. If you are a health care provider and have any questions regarding this report, please contact the number above. For patients who have questions, please contact the health career discovery teacher that requested your imaging first. ?Mikel Finnegan, Staff Physician Electronically Signed Final Report ?? 06/22/2023 10:34 am Narrative 06/22/2023 10:35 AM EDT Abdominal ? (Signed Final 06/22/2023 10:34 am) PATIENT INFO: ID #: ? [id number] ?: ??[birth year] (22 yrs)(F) Name: ? YANG KLINE ? Visit Date: 06/22/2023 10:18 am PERFORMED BY: Attending: ?Kain BROWN, Mikel Enrique Resident: ? Camila Padron MD, Mikel Elizondo Performed By: ? Della Huddleston RDMS Referred By: ?HUGO KIRBY Location: ? [place] SERVICE(S) PROVIDED: UABDLIM - Abdominal Limited Survey Single ? 64102 Organ or Quadrant - [id number] INDICATIONS: RUQ pain - rule out gallstones COMPARISON: MRI: Abdomen ------ LIVER: ------ Right Lobe Length: ?? 14.4 ?? cm Echogenicity/Echotexture: ?? Normal Portal Veins: ?Hepatopetal GALLBLADDER: Cholelithiasis: ?No stones visualized Wall Thickness: ?1. mm Focal Tenderness: ?Negative sonographic Montes's sign BILIARY TRACT: Intrahepatic Ducts: ?? Normal Extrahepatic Ducts: ?? Normal --------- PANCREAS: --------- Head: ?Normal ?Size: Tail: ?Poorly visualized due to ?Size: ?overlying bowel Body: ?Normal ?Size: RIGHT KIDNEY: Size (cm) ?L: ??11.0 Cortical Thickness: ?Normal Cortical Echogenicity: ?? Normal Hydronephrosis: ?No sonographic evidence ---- IVC: ---- Normal in caliber where visualized. Procedure Note Mikel Finnegan MD - 06/22/2023 Abdominal (Signed Final 06/22/2023 10:34 am) PATIENT INFO: ID #: [id number] : [birth year] (22 yrs)(F) Name: YANG KLINE Visit Date: 06/22/2023 10:18 am PERFORMED BY: Attending: Mikel Finnegan MD Resident: Mikel Troy MD Performed By: Della Huddleston RDMS Referred By: HUGO KIRBY Location: [place] SERVICE(S) PROVIDED: UABDLIM - Abdominal Limited Survey Single 30604 Organ or Quadrant - [id number] INDICATIONS: RUQ pain - rule out gallstones COMPARISON: MRI: Abdomen ------ LIVER: ------ Right Lobe Length: 14.4 cm Echogenicity/Echotexture: Normal Portal Veins: Hepatopetal GALLBLADDER: Cholelithiasis: No stones visualized Wall Thickness: 1. mm Focal Tenderness: Negative sonographic Montes's sign BILIARY TRACT: Intrahepatic Ducts: Normal Extrahepatic Ducts: Normal --------- PANCREAS: --------- Head: Normal Size: Tail: Poorly visualized due to Size: overlying bowel Body: Normal Size: RIGHT KIDNEY: Size (cm) L: 11.0 Cortical Thickness: Normal Cortical Echogenicity: Normal Hydronephrosis: No sonographic evidence ---- IVC: ---- Normal in caliber where visualized. IMPRESSION 1. Normal size and echotexture of the liver. No focal hepatic lesion. 2. Patent main portal vein with hepatopetal flow. No perihepatic fluid. 3. Normal appearing gallbladder. No cholelithiasis or acute cholecystitis. No biliary duct dilatation. 4. Partial visualization of the pancreas which appears normal where seen. 5. Normal appearing right kidney. I have personally reviewed the image(s) and the resident's interpretation and agree with the findings, Mikel Finnegan MD at 06/22/2023 10:28 AM Thank you for letting us participate in the care of this patient. If you are a health care provider and have any questions regarding this report, please contact the number above. For patients who have questions, please contact the health career discovery teacher that requested your imaging first. Mikel Finnegan, Staff Physician Electronically Signed Final Report 06/22/2023 10:34 am Hugo Kirby MD IMG US GEN ORDERABLE S documented in this encounter Visit Diagnoses Diagnosis Functional dyspepsia Dyspepsia and other specified disorders of function of stomach Irritable bowel syndrome with both constipation and diarrhea Functional dyspepsia Dyspepsia and other specified disorders of function of stomach documented in this encounter Care Teams Chief Compressor Station Engineer Relationship Specialty Start Date End Date None None PCP - General 06/05/22 documented as of this encounter
--- OUTSIDE RECORDS SUMMARY | 2024-04-14 21:50 | XMS_ITS | Encounter Summary ---
[place] [address] Care Team Providers Care Director External Communications Name Role Phone None Primary Care Provider Unavailabl e Encounter Details Date Type Department Care Team (Latest Contact Info) Description 07/26/2023 Travel Social History Tobacco Use Types Packs/Day [...] on filedocumented in this encounter Care Teams Director External Communications Relationship Specialty Start Date End Date None None PCP - General 06/05/22 documented as of this encounter
--- OUTSIDE RECORDS SUMMARY | 2024-04-14 21:50 | XMS_ITS | Encounter Summary ---
Author Organization [facility] Address [facility] [place] [address] Care Team Providers Care Manager Pricing Name Role Phone Jordan Shaver PAULIE Primary Care Provider Encounter Details Date Type Department Care Team (Late st Contact Info) Description 05/08/2022 12:00 PM EST - 05/08/2022 1:00 PM EST [place] [address] Mikel Walton MD [facility] [place] [address] COLONOSCOPY FLEXIBLE, WITH BX (WRVU 3.56) Social History Tobacco Use Types Packs/Day Years [...] Sign Reading Time Taken Comments Blood Pressure 86/66 05/08/2022 1:00 PM EST Pulse 76 05/08/2022 10:58 AM EST Temperature - - Respiratory Rate - - Oxygen Saturation 99% 05/08/2022 1:00 PM EST Inhaled Oxygen Concentration - - Weight - - Height - - Body Mass Index - - documented in this encounter Discharge Instructions * Attachments The following attachments cannot be sent through Care Everywhere. * Colon Polyps (Vietnamese) documented in this encounter Medications at Time of Discharge [...] NEEDED 01/21/2019 documented as of this encounter H&P Notes * Mikel Walton MD - 05/08/2022 12:10 PM EST Gastroenterology and Hepatology Pre-Procedure History and Physical Exam Procedure: Colonoscopy: Indication: loose stools There is no problem list on file for this patient. EXAM: HEENT: Airway examined, oropharynx clear Mallampati Score: II (soft palate, uvula, fauces visible) LUNGS: Clear to auscultation HEART: Regular rate and rhythm, normal S1, S2 ABDOMEN: Normal bowel sounds, soft, non tender, non distended, A/P Proceed with the planned endoscopic procedure. ASA 1 - Normal health patient Sedation Plan: anesthesia Risks and benefits of the procedure explained to the patient. Consent signed. documented in this encounter Plan of Treatment Scheduled Procedures Name Priority Associated Diagnoses Date/Ti me EGD, UPPER GI ENDOSCOPY (WRV U 2.09) Nausea and vomiting, unspecified vomiting type Functional dyspepsia Abdominal bloating documented as of this encounter Procedures Procedure Name Priority Date/Time Associated Diagnosis Comments SURGICAL PATHOLOGY REPORT Routine 05/08/2022 12:32 PM EST SPECIMEN TO PATHOLOGY Routine 05/08/2022 12:32 PM EST Colonoscopy, Biopsy ([id number]) 05/08/2022 12:10 PM EST Diarrhea, unspecified type Chronic abdominal pain COLONOSCOPY Routine 05/08/2022 12:00 PM EST documented in this encounter Results * Surgical Pathology Report (05/08/2022 12:32 PM EST) Final Diagnosis [id number] ? Location: 4T; EA11; A The signing pathologist has (i) examined the relevant preparation(s) for the specimen(s) and (ii) rendered or confirmed the diagnosis(es). . ?Surgical Pathology DIAGNOSIS A - Random colon r/o ?? inflammation, biopsy (Multiple): - ??Colonic mucosa, negative for diagnostic abnormality. CR-PX Electronically signed by: ?Samson BROWN, Gagandeep Verified: ??05/16/2022 16:36 ??Pathologist Performed at: ??-[facility] Dept. of Pathology, [place] [address] Gate Agent: Stacy Reed MD, FCAP, ??CLIA Certificate: [id number] SPECIMEN(S) SUBMITTED A - Random colon r/o ?? inflammation, biopsy (Multiple) CLINICAL INFORMATION Colonoscopy for loose stools SPECIMEN PROCESSING A - Labeled/Fixativ e: Random colon, rule out inflammation, formalin. Quantity/Size: Multiple, averaging 0.5 cm. Tissue Description: Soft, pink tissues. Sections/Proces sing: Submitted en toto ??in 2 cassettes labeled A1-A2. ??sns 05/16/2022 4:36 PM EST [facility] GI Biopsy 05/08/2022 12:3 2 PM EST 05/08/2022 12:32 PM EST Mikel Walton MD PATHOLOGY/CYTOLOGY O RDERABLES [facility] [address] [place] [place] [address] * Specimen to Pathology (05/08/2022 12:32 PM EST) AP Specimen 05/08/2022 12:3 2 PM EST 05/08/2022 12:32 PM EST Narrative [facility] - 05/08/2022 12:32 PM EST Specimen requisition ordered. ??Separate Pathology report to follow Mikel Walton MD PATHOLOGY/CYTOLOGY O RDERAKEKE [facility] [place] [address] * COLONOSCOPY (05/08/2022 12:00 PM EST) COLONOSCOPY [facility] Endoscopy Procedure Date: 05/08/2022 12:00 PM ? Patient Name: Clare Crook ? Date of : 2000 ? Age: 21 ? Order #: [id number] ? Instrument Name: [id number] ? Procedure: ? Colonoscopy Indications: ? loose stools and abdominal pain ? urgency Providers: ? Mikel Walton MD, Ranjit Veronica ? CAROL Enriquez, Jenniffer Medel MD: ?Em Clemente Medicines: ? See the Anesthesia note for ? documentation of the administered ? medications Complications: ? No immediate complications. Procedure: ? The procedure, indications, ? benefits, risks and alternatives ? were explained to the patient. ? Specifically discussed were ? potential complications including, ? but not limited to, bleeding, ? perforation, infection, missing a ? cancer, and adverse medication ? reactions. The patient was placed ? in the left lateral decubitus ? position, and a digital rectal exam ? was performed. The Colonoscope was ? inserted in the and under direct ? visualization, advanced to. Careful ? inspection was made as the ? colonoscope was withdrawn. The ? colonoscopy was performed without ? difficulty. The patient tolerated ? the procedure well. The quality of ? the bowel preparation was evaluated ? using the BBPS ([place] Bowel ? Preparation Scale) with scores of: ? Right Colon = 2 (minor amount of ? residual staining, small fragments ? of stool and/or opaque liquid, but ? mucosa seen well), Transverse Colon ? = 3 (entire mucosa seen well with ? no residual staining, small ? fragments of stool or opaque ? liquid) and Left Colon = 2 (minor ? amount of residual staining, small ? fragments of stool and/or opaque ? liquid, but mucosa seen well). The ? total BBPS score equals 7. Scope ? withdrawal time was 9 minutes. ? Findings: ? The perianal and digital rectal examinations were ? normal. ? The colon (entire examined portion) appeared normal. ? Biopsies were taken with a cold forceps for histology. ? The terminal ileum appeared normal. ? Internal hemorrhoids were found during retroflexion. ? The hemorrhoids were small. ? Moderate Sedation: ? Not applicable - See Anesthesia documentation Impression: ?- The entire examined colon is ? normal. Biopsied. ? - The examined portion of the ileum ? was normal. ? - Internal hemorrhoids. Recommendation: ?- Await pathology results. ? Attending Participation: ? I personally performed the entire procedure. ? __ Mikel Walton MD 05/08/2022 12:37:54 PM This report has been signed electronically. Number of Addenda: 0 Note Initiated On: 05/08/2022 12:00 PM PROVATION 05/08/2022 12:0 0 PM EST Em Clemente BOAT DISPATCHER GENERAL SURGICAL ORD ERABLES [employer]OVATION documented in this encounter Visit Diagnoses Diagnosis Diarrhea, unspecified type Chronic abdominal pain Abdominal pain, unspecified site documented in this encounter Administered Medications Inactive Administered Medications - up to 3 most recent administrations Medication Order MAR Action Action Date Dose Rate Site lactated ringers infusion 100 mL/hr, Intravenous, CONTINUOUS, Starting on Sun05/08/22 at 1115, Until Sun05/08/22 at 1318, Endoscopy (Day of Procedure) New Bag 05/08/2022 11:12 AM EST 100 mL/hr 100 mL/hr documented in this encounter Active and Recently Administered Medications Times are shown in EST. Continuous Medication Order 05/06/2022 05/07/2022 05/08/2022 lactated ringers infusion (CANCELED) 100 mL/hr, Intravenous, CONTINUOUS, Starting on Sun05/08/22 at 1115, Until Sun05/08/22 at 1318, Endoscopy (Day of Procedure) 1112 (New Bag - Prov ider: Anais Boateng RN) documented in this encounter Care Teams Manager Pricing Relationship Specialty Start Date End Date Jordan Shaver DNP [place] [address] [place] [address] PCP - General Family Medicine 04/02/19 06/04/22 documented as of this encounter
--- OUTSIDE RECORDS SUMMARY | 2024-04-14 21:50 | XMS_ITS | Encounter Summary ---
Author Organization [facility] Address [facility] [place] [address] Care Team Providers Care Motion Study Engineer Name Role Phone None Primary Care Provider Unavailabl e Encounter Details Date Type Department Care Team (Latest Contact Info) Description 06/22/2023 9:56 AM EDT - 06/22/2023 11:59 PM EDT Hospital [place] [address] Hugo Kirby MD [facility] [place] [address] Functional dyspepsia Discharge Disposition: Home Social History Tobacco Use [...] Procedure Name Priority Date/Time Associated Diagnosis Comments US ABDOMEN LIMITED Routine 06/22/2023 10 :18 AM EDT Functional dyspepsia documented in this encounter Results * US Abdomen Limited [...] Mikel Finnegan MD at 06/22/2023 10:28 AM Electronically signed by: Mikel Finnegan MD, [facility] ([phone]), at 06/22/2023 10:28 AM Thank you for letting us participate in the care of this patient. If you are a health care provider and have any questions regarding this report, please contact the number above. For patients who have questions, please contact the health child day care provider that requested your imaging first. ?Mikel Finnegan, Staff Physician Electronically Signed Final Report ?? 06/22/2023 10:34 am Narrative 06/22/2023 10:35 AM EDT Abdominal ? (Signed Final 06/22/2023 10:34 am) PATIENT INFO: ID #: ? [id number] ?: ??[birth year] (22 yrs)(F) Name: ? YANG Morgan RAISA ? Visit Date: 06/22/2023 10:18 am PERFORMED BY: Attending: ?Kain BROWN, Mikel Enrique Resident: ? Camila Padron MD, Mikel Elizondo Performed By: ? Karo RDDella ANDRE Referred By: ?HUGO KIRBY Location: ? [place] SERVICE(S) PROVIDED: UABDLIM - Abdominal Limited Survey Single ? [id number] Organ or Quadrant - [id number] INDICATIONS: RUQ pain - rule out gallstones [...] 06/22/2023 10:34 am) PATIENT INFO: ID #: [id number] : [birth year] (22 yrs)(F) Name: YANG KLINE Visit Date: 06/22/2023 10:18 am PERFORMED BY: Attending: Mikel Finnegan MD Resident: Mikel Troy MD Performed By: Della Huddleston RDMS Referred By: HUGO KIRBY Location: [place] SERVICE(S) PROVIDED: UABDLIM - Abdominal Limited Survey Single [id number] Organ or Quadrant - [id number] INDICATIONS: RUQ pain - rule out gallstones [...] who have questions, please contact the health child day care provider that requested your imaging first. Mikel Finnegan, Staff Physician Electronically Signed Final Report 06/22/2023 10:34 am Hugo Kirby MD IMG US GEN ORDERABLE S documented in this encounter Visit Diagnoses Diagnosis Functional dyspepsia Dyspepsia and other specified disorders of function of stomach documented in this encounter Care Teams Motion Study Engineer Relationship Specialty Start Date End Date None None PCP - General 06/05/22 documented as of this encounter
--- OUTSIDE RECORDS SUMMARY | 2024-04-14 21:50 | XMS_ITS | Encounter Summary ---
Author Organization [facility] Address [facility] [place] [address] Care Team Providers Care Perforating Machine Operator Name Role Phone None Primary Care Provider Unavailabl e Encounter Details Date Type Department Care Team (Late st Contact Info) Description 09/27/2022 11:30 AM EDT Office Visit [place] [address] Hugo De Oliveira MD [facility] [place] [address] Diarrhea, unspecified type Social History Tobacco Use Types Packs/Day Years [...] Sign Reading Time Taken Comments Blood Pressure 107/22 09/27/2022 11:35 AM EDT Pulse 73 09/27/2022 11:35 AM EDT Temperature - - Respiratory Rate - - Oxygen Saturation - - Inhaled Oxygen Concentration - - Weight 71.4 kg (157 lb 8 oz) 09/27/2022 11:35 AM EDT Height 149.9 cm (4' 11) 09/27/2022 11:35 AM EDT Body Mass Index 31.81 09/27/2022 11:35 AM EDT documented in this encounter Patient Instructions * Patient Instructions* Hugo De Oliveira MD - 09/27/2022 11:30 AM EDT Functional Bowel Disorders: Information Handout for Patients and Primary Care Providers Hugo De Oliveira MD, CPC + Raheel Mills MD, EVER Aldo Ward, HOOP PUNCH AND COILER OPERATOR HELPER + Chantelle Alonzo APRN + Rosalie Pinzon APRN + RICK García, CAROL + CAROL Lemus, PhD [facility] What are functional bowel disorders? These are the most common type of gastrointestinal disorders in the [facility] The most common functional bowel disorder in the [place] is irritable bowel syndrome (IBS) Irritable bowel syndrome affects the lower GI tract and can cause bloating, abdominal pain, diarrhea, and constipation Functional dyspepsia (FD) affects the upper GI tract and can cause bloating, burping, heartburn, nausea, fullness and stomach discomfort In functional disorders the gut is structurally/anatomically normal but is not functioning properlydue to abnormalities in the enteric (gut) nervous system Two mechanisms cause symptoms - heightened sensitivity of the gut to normal sensations (sensory nerves) and abnormal gut motility (motor nerves) These disorders are caused by a combination of a genetic factors, changes to the gut microbiota (intestinal bacteria) and environmental triggers How common are these disorders and what is the impact? 15-20% of general [place] population has IBS or FD or both IBS is the 2nd most common cause for lost work days (after common cold) in [place] IBS is estimated to cost the [place] economy 30 billion dollars per year These disorders are typically chronic and can have a significant impact on quality of life How is the diagnosis made? The diagnosis of a functional disorder is NOT a ???diagnosis of exclusion?? (common misconception) Investigations may be necessary to look for other disorders (such as celiac disease) that may be contributing to symptoms. Sometimes investigations are required if the diagnosis is unclear Work-up may include history (description of symptoms), physical exam, bloodwork, stool studies, diagnostic imaging, motility tests and endoscopy What is the prognosis? Functional bowel disorders are unfortunately chronic disorders and often have a major impact on patient quality of life, function, and relationships Symptoms may gradually resolve in some patients (highest rate in patients with immediate onset of symptoms after infection); half-way symptoms are expected in most patients however Most patients experience a variable course with varying degrees of symptom severity. Intermittent exacerbations (i.e. ???flares?? ) are common and may be caused by stress, infections, antibiotic exposure, and lack of adherence to treatment plans. Often there is no clear precipitant for an exacerbation though. When should a patient be re-evaluated? Patients with stable symptoms do NOT need episodic re-evaluation Subtle changes in symptoms and symptom flares are common Patients should be re-evaluated if they have progression or dramatic changes in symptoms, severe abdominal pain, swallowing difficulties, unexplained weight loss, anemia (low blood counts), or bleeding If you have concerns be sure to talk to your PRP or GI provider How do I use this information? Set realistic goals! Remember it is unlikely that any one measure will completely eliminate all symptoms ???Start low and go slow?? with all measures to avoid potential side effects Stay on any measure continuously for at least 4-6 weeks prior to assessing whether or not it is helping (improvements are often slow to occur) After an adequate trial ask yourself if the benefit is worth continuing the treatment Most patients will need multiple treatment measures (each giving a partial benefit) - this is called the ???layering strategy?? Remember that finding the right combination for you takes time and patience - there is NO ???miracle cure?? for functional disorders Remember there are limited treatment options available. We want to be absolutely sure that a measure is not effective or intolerable before stopping it and considering other options We specifically recommend all patients to do ALL general lifestyle and dietary measures. Patients that do not follow these general measures generally do not have improvement. We also specifically suggest using a fiber supplement (such as Metamucil) and probiotics together - this approach benefits most patients OTC (vmwg-fqu-jpsmahi) medications can be used for ongoing bothersome symptoms as listed below Your doctor (PCP or [facility] Gastroenterology provider or Gastroenterology provider) may decide to use prescription medications if you have ongoing symptoms despite using lifestyle and dietary measures and OTC medications Your doctor will give you advice on treatments but it is your responsibility to work on these measures to improve your symptoms. Lack of following recommendations is a common cause for ongoing symptoms. If symptoms are controlled try easing back on measures - remember the main goal is to improve quality of life (not necessarily eliminate symptoms). Goals of Therapy Complete resolution of all symptoms is not a realistic goal for most patients. Although we hope for you to have decreased symptoms we believe the most important goal is to help you find strategies to cope with and understand your disorder. Ultimately, we hope that you are able to improve your quality of life and do the things that are important in your life! Non-Pharmacologic General Treatments Lifestyle measures Many lifestyle factors can worsen IBS symptoms However, IBS is not caused by these factors (common misconception) These lifestyle factors include the following: Inadequate sleep Weight gain Inadequate exercise Stress Depression/anxiety - this should be brought up to your Primary Care Provider (if left untreated it is unlikely the functional bowel disorder will improve) Dietary measures Trigger food avoidance - you should re-introduce foods once symptoms settle as overly restrictive diet can be unhealthy and even harmful Fatty foods, spicy foods, alcohol, and caffeine can worsen symptoms Consider a 2 week dairy-free trial for possible lactose-intolerance Your PCP or GI provider can refer you to a dietitian for formal instruction on specialized diets including the low FODMAP diet (but we don't recommend using this without dietitian involvement). Fiber Aim for a goal is 30 g fiber/day - some patients may require more or less Increase fiber by 5 g per week (remember ???start low and go slow?? ) Fiber can be from multiple dietary sources but supplementation may be helpful Fiber intake should include psyllium fiber; this is the type of fiber used in research studies for treatment of IBS Sources of psyllium include All-Bran psyllium buds, Metamucil, bulk psyllium (CheckInPage food stores and bulk stores) Specifically we recommend starting Metamucil at a low dosage such as one teaspoon a day for one week then gradually increasing by one teaspoon per week until no further benefit with increasing dosageis achieved. Most patients take between 2 and 6 teaspoons per day. Fluid intake goal is 8-10 glasses/day (caffeine and alcohol count as minus one in calculation) Probiotics Promising area but convincing medical evidence is still lacking Iivz-ybu-kwqgmrp supplements are not typically evaluated by FDA - quality/safety unclear and many products actually do not contain any probiotics at all Live-culture yogurts, kombucha and other dietary sources are an option Align, TuZen, and Visbiome are the three probiotics that are supported by medical research to have been shown benefit for IBS (available in most pharmacies, supermarkets or online) Florastor has been shown to benefit some post-infectious patients Psychology/Coping Skills Coping with chronic bothersome symptoms from functional disorders can be very challenging. Additionally it is not uncommon for functional disorders to contribute to feelings of stress, anxiety, and depression, which can actually worsen functional disorders. This can be a vicious cycle! Smartphone apps can be helpful for coping with IBS symptoms, and lessening the impact of stressors on IBS Headspace (anxiety/stress/mindfulness) Calm (anxiety/stress/mindfulness) CBT-I fitness coach (insomnia/sleep problems) Curable (chronic pain) There is evidence for Cognitive Behavioral Therapy (CBT) for IBS - you can try this at home using aworkbook (Controlling IBS the Drug-Free Way: A 10-Step Plan for Symptom Relief by Ovidio Brady, Ph.D.) or work with a GI psychologist A local therapist may also be helpful for managing the impact of IBS and decreasing the likelihood that stressors will cause flares psychologytoday.com ABCT.org ContextualScience.org Gut-directed hypnotherapy for IBS is also supported by research - you may find a provider at [employer] OTC Medications for Functional Gut Disorders Diarrhea Loperamide (Imodium) should be considered first for mild and intermittent symptoms - start with small doses and take several hours before needed (or even before bed) (it is generally considered safe for long-term use) Constipation Patients with mild constipation can use laxatives ???as needed?? (in other words, if you feel constipated or haven't had a regular bowel movement). However, patients with more severe constipation generally will need laxatives on a regular schedule (every day or every second day for example). This is called ???maintenance therapy?? . PEG 3350 (Miralax) is a stool softener that is safe for half-way usage (no risk of dependency) andthe dosage can be adjusted to achieve 1-2 soft bowel movements per day; you can take 17g twice daily if needed Milk of magnesia, magnesium supplements and lactulose are alternate stool softeners that are generally safe for regular use in most patients (you should ask your doctor though) Bisacodyl (Dulcolax) and senna (Senokot) are stimulant laxatives for occasional use only (they may lead to dependency with regular long-term use) Enemas and bowel preparations (e.g. Golytely) can be used to treat severe stool impaction ---- thisis called ???rescue therapy?? . Drink 2 litres in 4 hours in the evening then take another 2 litresover 4 hours the next morning. Alternately, you can mix 14 capfuls of Miralax with 64 oz (2 litres) of Gatorade. Drink half over 2hours in the evening then take the rest over 2 hours the next morning. After rescue therapy immediately begin aggressive ???maintenance therapy?? with the therapies above. Bloating/Pain Ensure constipation is completely treated - ongoing constipation is one of the most common causes for refractory pain and bloating in patients with a history of constipation Heating pad or hot-water bottle, exercise, , warm bath or shower, and warm beverages are all good treatments for painful bloating episodes Simethicone (Gas-X) can be helpful for occasional usage for painful bloating Peppermint oil may also be useful; a capsule form exists (IBgard) Tumeric may help with pain and bloating in some patients Acetominophen (Tylenol) is safest analgesic (pain reliever) on the GI tract NSAIDs (e.g. ibuprofen) can cause gut irritation/inflammation - it's best to use this type of pain reliever in low doses and frequency only While medical cannabis has been used to treat a variety of chronic pain disorders it has not been rigorously studied in functional disorders and may actually worsen symptoms in some patients. At thispoint we do NOT recommend using medical cannabis to treat functional disorders AVOID narcotics/opioids as they typically make symptoms much worse and there is a risk of addictionand/or dependence Heartburn/Nausea/Vomiting/Dyspepsia Weight loss, elevation of the head of the bed frame, cutting back on nicotine/alcohol/caffeine/fatty foods, and avoiding eating or drinking prior to bed may help with reflux symptoms OTC antacids can be used for mild and/or infrequent reflux symptoms Acid reducing medications such as proton-pump inhibitors (PPIs) and H2 blockers are effective at relieving reflux if persistent and bothersome symptoms despite dietary and lifestyle measures Di and vitamin B6 may help with nausea L-carnitine, riboflavin, and coenzyme Q10 supplements have been reported to help some patients withchronic nausea and vomiting Capsaicin, turmeric, and FDgard (combination of peppermint and guillermina) may help with after-meal bloating, fullness and discomfort If using cannabis (recreational or medical) consider stopping for at least a full month. While cannabis has been reported to help some patients with nausea, it may actually contribute to symptoms in some patients. Disclaimer This information is intended for educational purposes only It is not meant to replace direct patient-doctor care All medications should be used under the supervision of a Gastroenterology provider ([facility] or ) or Primary Care Provider Authors are not liable for misuse/misinterpretation of this information Patient Resources [place] [employer] https://www.gastro.org/practice-guidance/np-ohjtbac-tppxas/ topic/deduliwbl-qkkak-nopgxuph-ibs Badgut.org https://badgut.org/information-centre/e-r-mqktkiryh-topics/ibs/ AboutIBS.org https://www.aboutibs.org/ Uptodate.com https://www.Propeltodate.com/contents/kwwgyaake-utvmd-sjsjdkni-msgapy-qoe-bmihnk documented in this encounter Progress Notes * Hugo De Oliveira MD - 09/27/2022 11:30 AM EDT Images from the original note were not included. Chief Complaint: Clare Crook is a 21 [address] Shefali sandoval. provider found here for follow-up of chronic dyspepsia. Referred for second opinion. Followed by Em Clemente APRN in [place] . Detailed history: I last saw her April 11, 2022 my thoughts at that time were as follows: Assessment/Plan: Ms. Crook is a 21 y.o. patient with the [...] as tolerated, before changing therapy. Recommendations: We discussed GI functional/motility disorders in depth today including pathophysiology, expected course, impact and treatment categories We also discussed realistic goals (with emphasis on improved quality of life) and patient responsibilities. Please see the patient handout for recommendations on general treatment measures including lifestyle, dietary, and non-prescription pharmacologic options. I will arrange a comprehensive evaluation of the structure and function of the patient's GI tract including the following investigations +/- referrals: Colonoscopy with MAC and biopsies throughout Bloodwork - anti-TTG, TSH MRE (AFTER colonoscopy) Upper GI series Gastric emptying study Consider duplex U/S if refractory pain Consider referral to GI psychology to work on specific psychologic measures for functional disorders Consider referral to dietitian Interval history: Celiac screen and TSH normal MR enterography performed June 02, 2022 with no inflammatory bowel disease present. The radiologist did note a 3.4 left adnexal/ovarian cyst but no recommendations for further evaluation were provided She had gastric emptying study done June 05, 2022 which was normal She had upper GI series June 23, 2022 with no evidence of SMA syndrome She underwent colonoscopy May 08, 2022 which was normal including visualization of the terminal ileum. Internal hemorrhoids were found on retroflexion. Nontargeted biopsies were negative for microscopic colitis. Ongoing symptoms Current Regimen: Sertraline 25 mg nightly Cyproheptadine 4 mg once a day Past Therapies: Omeprazole - diarrhea Zofran prn Review of systems: 14-system ROS reviewed and [...] past surgical history that includes Colonoscopy, Biopsy (35974) (N/A, 05/08/2022). Family History: family history includes [...] to display Laboratory studies, imaging, and procedures: See above Assessment/Plan: Ms. Crook is a 21 y.o. patient with the [...] our center based on the recommendations above. Hugo De Oliveira MD [facility] [place] [id number] documented in this encounter Plan of Treatment Scheduled Procedures Name Priority Associated Diagnoses Date/Ti me EGD, UPPER GI ENDOSCOPY (WRV U 2.09) Nausea and vomiting, unspecified vomiting type Functional dyspepsia Abdominal bloating documented as of this encounter Visit Diagnoses Diagnosis Diarrhea, unspecified type documented in this encounter Care Teams Perforating Machine Operator Relationship Specialty Start Date End Date None None PCP - General 06/05/22 documented as of this encounter
--- OUTSIDE RECORDS SUMMARY | 2024-04-14 21:50 | XMS_ITS | Encounter Summary ---
[place] [address] Care Team Providers Care Game Breeding Farm Manager Name Role Phone Jordan Shaver DNP Primary Care Provider Encounter Details Date Type Department Care Team (Latest Contact Info) Description 06/02/2022 Travel Social History Tobacco Use Types Packs/Day [...] on filedocumented in this encounter Care Teams Game Breeding Farm Manager Relationship Specialty Start Date End Date Jordan Shaver DNP [address] [place], [place] [id number] PCP - General Family Medicine 04/02/19 06/04/22 documented as of this encounter
--- OUTSIDE RECORDS SUMMARY | 2024-04-14 21:50 | XMS_ITS | Encounter Summary ---
Author Organization [facility] [place] [address] Care Team Providers Care Manager Of Health Name Role Phone Jordan Shaver PAULIE Primary Care Provider Reason for Referral * Diagnostic Test (Routine) - Closed Specialty Diagnoses / Procedures Referred By Contac t Referred To Contact Radiology Diagnoses Diarrhea, unspecified type Chronic abdominal pain Procedures MRI Enterography wwo Contrast Hugo De Oliveira MD [facility] [place] [address] [place] [address] Referral ID Status Reason Start Date Expiration Date V isits Requested Visits Authorized [id number] Closed Specialty Service Requested 04/11/2022 10/10/2023 1 1 Reason for Visit * Diagnostic Test (Routine) - Closed Specialty Diagnoses / Procedures Referred By Contac t Referred To Contact Radiology Diagnoses Diarrhea, unspecified type Chronic abdominal pain Procedures MRI Enterography wwo Contrast Hugo De Oliveira MD [facility] [place] [address] [place] [address] Referral ID Status Reason Start Date Expiration Date V isits Requested Visits Authorized [id number] Closed Specialty Service Requested 04/11/2022 10/10/2023 1 1 Encounter Details Date Type Department Care Team (Latest Contact Info) Description 06/02/2022 3:22 PM EST - 06/02/2022 11:59 PM EST Hospital Encounter MRI at [facility] [place] [address] Hugo De Oliveira MD [facility] [place] [address] Diarrhea, unspecified type; Chronic abdominal pain Discharge Disposition: Home Social History Tobacco Use [...] Procedure Name Priority Date/Time Associated Diagnosis Comments MRI ENTEROGRAPHY WITH/WO CONTRAST Routine 06/02/2022 6:44 PM EST Diarrhea, unspecified type Chronic abdominal pain documented in this encounter Results * MRI Enterography wwo Contrast (06/02/2022 6:44 PM EST) Anatomical Region Laterality Modality Abdomen Magnetic Resonan ce Impressions 06/04/2022 10:01 AM EDT No inflammatory bowel disease. 3.4 cm left adnexal/ovarian cyst. Adjacent pelvic free fluid may reflect interval rupture. Thank you for letting us participate in the care of this patient. ??If you are a health care provider and have any questions regarding this report, please contact the number below. ??For patients who have questions please contact the health care management assistant that requested your imaging first. ? Electronically signed by: Caryn Anguiano MD, [facility] ([phone]), at 06/04/2022 10:01 AM Narrative 06/04/2022 10:01 AM EDT EXAMINATION: MRI ENTEROGRAPHY WWO CONTRAST CLINICAL HISTORY: abdominal pain and diarrhea and weight loss - rule out crohns TECHNIQUE: ??MRI of the abdomen and pelvis was performed with images obtained prior to and following the intravenous administration of 12ml of Dotarem. ??0.5mg glucagon was also administered. ??Breeza was administered as an oral contrast. COMPARISON: None FINDINGS: GI tract: No dilated small or large bowel, bowel wall thickening, or mesenteric inflammation. No mucosal hyperenhancement. Active peristalsis throughout. Peritoneum/mesentery: Small pelvic ascites. Liver: Normal signal, no lesions. Bile ducts: Nondilated. Gallbladder: No gallstones. Normal caliber wall. Pancreas: Normal. Spleen: Normal. Adrenals: Normal. Kidneys: Normal. Lymph nodes: No lymphadenopathy. Reproductive structures: Normal contours. 3.4 cm left adnexal/ovarian cyst. Adjacent pelvic free fluid may reflect interval rupture. Osseous structures: No marrow signal abnormality. Procedure Note Caryn Anguiano MD - 06/04/2022 EXAMINATION: MRI ENTEROGRAPHY WWO CONTRAST CLINICAL HISTORY: abdominal pain and diarrhea and weight loss - rule outcrohns TECHNIQUE: MRI of the abdomen and pelvis was performed with imagesobtained prior to and following the intravenous administration of 12ml of Dotarem.0.5mg glucagon was also administered. Breeza was administered as an oralcontrast. COMPARISON: None FINDINGS: GI tract: No dilated small or large bowel, bowel wall thickening, ormesenteric inflammation. No mucosal hyperenhancement. Active peristalsisthroughout. Peritoneum/mesentery: Small pelvic ascites. Liver: Normal signal, no lesions. Bile ducts: Nondilated. Gallbladder: No gallstones. Normal caliber wall. Pancreas: Normal. Spleen: Normal. Adrenals: Normal. Kidneys: Normal. Lymph nodes: No lymphadenopathy. Reproductive structures: Normal contours. 3.4 cm left adnexal/ovariancyst. Adjacent pelvic free fluid may reflect interval rupture. Osseous structures: No marrow signal abnormality. IMPRESSION No inflammatory bowel disease. 3.4 cm left adnexal/ovarian cyst. Adjacent pelvic free fluid may reflect interval rupture. Thank you for letting us participate in the care of this patient. If youare a health care provider and have any questions regarding this report,please contact the number below. For patients who have questions please contactthe health care management assistant that requested your imaging first. Electronically signed by: Caryn Anguiano MD, [facility]([phone]), at 06/04/2022 10:01 AM Hugo De Oliveira MD IMG MRI ORDERABLES documented in this encounter Visit Diagnoses Diagnosis Diarrhea, unspecified type Chronic abdominal pain Abdominal pain, unspecified site documented in this encounter Administered Medications Inactive Administered Medications - up to 3 most recent administrations Medication Order MAR Action Action Date Dose Rate Site gadoterate meglumine (Dotarem) (0.5 mMol/mL) injection solution 0-100 mL 0-100 mL, Intravenous, ONCE PRN, 1 dose, Starting on Sun06/02/22 at 1844, Until Sun06/02/22 at 1844, Per Protocol, Radiology Contrast, Routine Given 06/02/2022 6:44 PM EST 12 mLs glucagon (Glucagen) (1 mg/mL) injection solution 0.5 mg 0.5 mg, Intramuscular, ONCE, 1 dose, On Sun06/02/22 at 1830, Radiology Protocol Medication, Routine Given 06/02/2022 6:13 PM EST 0.5 mg documented in this encounter Care Teams Manager Of Health Relationship Specialty Start Date End Date Jordan Shaver DNP [address] [facility] [address] [place] [address] PCP - General Family Medicine 04/02/19 06/04/22 documented as of this encounter
--- OUTSIDE RECORDS SUMMARY | 2024-04-14 21:50 | XMS_ITS | Encounter Summary ---
[place] [address] Care Team Providers Care Telemetry Registered Nurse Name Role Phone None Primary Care Provider Unavailabl e Reason for Visit * Diagnostic Test (Routine) - Closed Specialty Diagnoses / Procedures Referred By Kathryn early Referred To Contact Radiology Diagnoses Diarrhea, unspecified type Chronic abdominal pain Procedures NM Gastric Emptying Scan Hugo De Oliveira MD [facility] [place] [address] [place] [address] Referral ID Status Reason Start Date Expiration Date V isits Requested Visits Authorized [id number] Closed Specialty Service Requested 04/11/2022 10/10/2023 1 1 Encounter Details Date Type Department Care Team (Latest Contact Info) Description 06/05/2022 10:18 AM EDT Hospital Encounter [place] [address] Hugo De Oliveira MD [facility] [place] [address] Discharge Disposition: Home Social History [...] who have questions please contact the health healthcare architect that requested your imaging first. ? Electronically signed by: Perfecto Rudolph MD, [facility] ([phone]), at 06/05/2022 3:31 PM Narrative 06/05/2022 3:31 [...] patients who have questions please contactthe health healthcare architect that requested your imaging first. Electronically signed by: Perfecto Rudolph MD, Radiology [place]([phone]), at 06/05/2022 3:31 PM Hugo De Oliveira MD [facility] [place] ORDERABLES documented in this encounter Visit Diagnoses Not on filedocumented in this encounter Care Teams Telemetry Registered Nurse Relationship Specialty Start Date End Date None None PCP - General 06/05/22 documented as of this encounter
--- OUTSIDE RECORDS SUMMARY | 2024-04-14 21:50 | XMS_ITS | Clinical Summary ---
Author Organization [facility] [place] [address] Care Team Providers Care Printing Film Stripper Name Role Phone None Primary Care Provider Unavailabl e Allergies Active Allergy Reactions Criticality Noted Date Comments Prochlorperazine 10/12/2021 Other reaction(s): Unknown Omeprazole Magnesium 10/12/2021 Other reaction(s): rash, diarrhea Medications Medication Sig Dispensed Refills Start Date End Date Status PROAIR HFA 90 mcg/actuation HFA Aerosol Inhaler INHALE 2 PUFFS BY MOUTH BEFORE EXERCISE NEEDED 01/21/2019 Active benzonatate (TESSALON) 200 mg Capsule TAKE ONE CAPSULE BY MOUTH THREE TIMES A DAY NEEDED FOR COUGH 03/13/2022 Active albuteroL (ACCUNEB) 1.25 mg/3 mL Solution for Nebulization as needed. 01/15/2021 Active Active Problems No known active problems Family History Medical History Relation Comments No Known Problems Father No Known Problems Mother Relation Status Comments Father Mother Social History Tobacco Use Types Packs/Day Years Used Date Smoking Tobacco: Passive Smo ke Exposure - Never Smoker Smokeless Tobacco: Never Alcohol Use Standard Drinks/Week Comments Never 0 (1 standard drink = 0.6 oz pur e alcohol) Sex and Gender Information Value Date Recorded Sex Assigned at Not on file Gender Identity Not on file Sexual Orientation Not on file Last Filed Vital Signs Vital Sign Reading Time Taken Comments Blood Pressure 131/70 07/26/2023 2:15 PM EDT Pulse 80 07/26/2023 2:15 PM EDT Temperature - - Respiratory Rate 16 04/02/2019 2:02 PM EST Oxygen Saturation 99% 05/08/2022 1:10 PM EST Inhaled Oxygen Concentration - - Weight 77.6 kg (171 lb 1.6 oz) 07/26/2023 2:15 P M EDT Height 149.9 cm (4' 11) 07/26/2023 2:15 PM EDT Body Mass Index 34.56 07/26/2023 2:15 PM EDT Plan of Treatment Scheduled Procedures Name Priority Associated Diagnoses Date/Ti me EGD, UPPER GI ENDOSCOPY (WRV U 2.09) Nausea and vomiting, unspecified vomiting type Functional dyspepsia Abdominal bloating Health Maintenance Due Date Last Done Comments Chlamydia Screening 2017 HPV vaccine (1 - 3-dose series) 2017 HIV screen 2020 Hepatitis C Screening 2020 Lipid Screening 2020 Hepatitis B vaccine (0-59 yrs) (1) 2021 Tetanus/Diphtheria/Pertussis Vaccines (1 - Tdap) 11/25 Covid-19 Vaccine (1 - 2023-25 season) 2023 Influenza (Flu) vaccine (1 o f 1 - Influenza standard series) 2023 PAP Smear 11/26/2023 Advance Directives Documents on File Type Date Recorded Patient Real Estate Underwriter Expl anation Personal Real Estate Underwriter 04/11/2022 3:50 PM thalia olivier Care Teams Printing Film Stripper Relationship Specialty Start Date End Date None None PCP - General 06/05/22
--- OUTSIDE RECORDS SUMMARY | 2024-04-14 21:50 | XMS_ITS | Encounter Summary ---
[place] [address] Care Team Providers Care Backhaul Driver Name Role Phone None Primary Care Provider Unavailabl e Reason for Visit * Diagnostic Test (Routine) - Closed Specialty Diagnoses / Procedures Referred By Kathryn early Referred To Contact Radiology Diagnoses Diarrhea, unspecified type Chronic abdominal pain Procedures NM Gastric Emptying Scan Hugo De Oliveira MD [facility] [place] [address] [place] [address] Referral ID Status Reason Start Date Expiration Date V isits Requested Visits Authorized [id number] Closed Specialty Service Requested 04/11/2022 10/10/2023 1 1 Encounter Details Date Type Department Care Team (Latest Contact Info) Description 06/05/2022 10:19 AM EDT - 06/05/2022 11:59 PM EDT Hospital Encounter [place] [address] Hugo De Oliveira MD [facility] [place] [address] Discharge Disposition: Home Social History [...] who have questions please contact the health lawn care technician that requested your imaging first. ? Electronically signed by: Perfecto Rudolph MD, [facility] ([phone]), at 06/05/2022 3:31 PM Narrative 06/05/2022 3:31 [...] patients who have questions please contactthe health lawn care technician that requested your imaging first. Electronically signed by: Perfecto Rudolph MD, [facility]([phone]), at 06/05/2022 3:31 PM Hugo De Oliveira MD IMG [place] ORDERABLES documented in this encounter Visit Diagnoses Not on filedocumented in this encounter Care Teams Backhaul Driver Relationship Specialty Start Date End Date None None PCP - General 06/05/22 documented as of this encounter
--- OUTSIDE RECORDS SUMMARY | 2024-04-14 21:50 | XMS_ITS | Encounter Summary ---
Author [place] [address] Care Team Providers Care Diamond Sizer Name Role Phone None Primary Care Provider Unavailabl e Encounter Details Date Type Department Care Team (Latest Contact Info) Description 06/23/2022 Travel Social History Tobacco Use Types Packs/Day [...] on filedocumented in this encounter Care Teams Diamond Sizer Relationship Specialty Start Date End Date None None PCP - General 06/05/22 documented as of this encounter
--- OUTSIDE RECORDS SUMMARY | 2024-04-14 21:50 | XMS_ITS | Encounter Summary ---
[place] [address] Care Team Providers Care Movie Shot Cameraman Name Role Phone None Primary Care Provider Unavailabl e Encounter Details Date Type Department Care Team (Latest Contact Info) Description 09/27/2022 Travel Social History Tobacco Use Types Packs/Day [...] on filedocumented in this encounter Care Teams Movie Shot Cameraman Relationship Specialty Start Date End Date None None PCP - General 06/05/22 documented as of this encounter
--- OUTSIDE RECORDS SUMMARY | 2024-04-14 21:50 | XMS_ITS | Encounter Summary ---
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 Name Role Phone None Primary Care Provider Unavailabl e Reason for Referral * Consultation (Routine) - Closed Specialty Diagnoses / Procedures Referred By Kathryn early Referred To Contact Gastroenterology Diagnoses Functional dyspepsia Irritable bowel syndrome with both constipation and diarrhea Tasha Peralta APRN [facility] [place] [address] Annmarie Vang, PhD [facility] [place] [address] Referral ID Status Reason Start Date Expiration Date V isits Requested Visits Authorized [id number] Closed Consult, Test & Treat 07/07/2023 07/06/2024 1 1 Encounter Details Date Type Department Care Team (Late st Contact Info) Description 07/06/2023 4:00 PM EDT Office Visit [place] [address] Tasha Peralta APRN [facility] [place] [address] Functional dyspepsia; Irritable bowel syndrome with both constipation and diarrhea; Abdominal bloating Social History Tobacco Use Types [...] Sign Reading Time Taken Comments Blood Pressure - - Pulse - - Temperature - - Respiratory Rate - - Oxygen Saturation - - Inhaled Oxygen Concentration - - Weight - - Height 149.9 cm (4' 11) 07/06/2023 4:10 PM EDT Body Mass Index - - documented in this encounter Patient Instructions * Patient Instructions* Tasha Peralta APRN - 07/06/2023 4:00 PM EDT Dear Rc Sparks to meet you and your mom in clinic. Below is the plan, recommendations, and the Functional Bowel Handout. I am also including the current GI Behavioral Health schedule just in case any of the current times could work for you. Testing #Hydrogen breath test - Our motility lab will reach out to you to schedule these test(s). Recommendations for Symptoms #Eliminate use of straws #Simethicone (Gas-X) can be helpful for occasional usage for painful bloating #Avoid NSAID medications such as ibuprofen, naproxen (Advil, Aleve, Motrin) #Avoid carbonated beverages, chewing gum, and sucking on hard candies #Consider trying enteric-coated peppermint for upper GI symptoms and bloating. This is available under the brand name IB Guard at stores but you may also buy it less-expensively in generic form online - be sure it is enteric-coated. Use as needed up to several times a day for upper abdominal discomfort. Enteric- coated peppermint can increase heartburn in some people and if this is the case, discontinue. #Consider adding fiber using these directions for one of two options: Benefiber one teaspoon mixed in 8 oz of fluid daily. Increase by one teaspoon per day every week astolerated up to 2 Tbs per day. If this makes symptoms worse, please stop. OR Begin Metamucil or psyllium husk fiber (make sure it is free of artificial sweetener): 1tsp daily for one week, then 2tsp daily for one week, then 3tsp (1TBSP) daily. May increase slowly up to 2 TBSPdaily. Titrate according to what works best for you.This may cause bloating initially but this willimprove with continued use. If this supplement causes too much bloating you may try Citrucel. If after 6-8 weeks the Metamucil or Citrucel is not helping, discontinue. #Tumeric may help with pain and bloating in some patients #Consider starting a neuromodulator to help regulate the gut-brain communication which creates these symptoms. I am providing options below for your PCP. #Use the Functional Bowel Handout as a tool for ongoing symptoms of Functional Dyspepsia and Irritable Bowel Syndrome #Work with the GI Food Prep Worker #If you are able to engage with GI Behavioral Health I think this would be most helpful. Follow-up #Follow-up in 1 year for a check in about Functional Dyspepsia and Irritable Bowel Syndrome if desired. If your Hydrogen Breath Test is abnormal you will hear from me through the portal and I will prescribe a round of Rifaximin for SIBO. Due to the consultative nature of our practice, the patient should continue to work with primary care provider as the primary point of contact for urgent issues, medication refills and adjustments asneeded for continuity of care purposes in between visits to our center based on the recommendationsabove. Treatment for PCP/local team to consider based on appropriateness from a non- GI/psych standpoint Neuromodulators for the local managing provider to consider (depending on appropriateness from a mental health/non-GI standpoint as determined by the PCP; try oso-kq-r-time for at least ~90 days eachbefore switching therapy, as long as tolerated) 1. Consider mirtazapine 7.5mg qhs titrating up to 15mg or 30mg at night, or 15mg twice daily as needed, (most side effects are sedation and blurred vision) 2. Consider buspirone 7.5mg nightly, uptitrating to 15mg twice daily (possible side effects can include sedation, headache and vertigo) 3. Consider desipramine 10mg at night, increase to 25mg as needed (possible side effects can include drowsiness, dry mouth, constipation, sexual dysfunction, arrhythmias, and weight gain) 4. Consider duloxetine or venlafaxine, (possible side effects can include nausea, agitation, dizziness, sleep disturbance, fatigue, and liver dysfunction) Functional Bowel Disorders: Information Handout for Patients and Primary Care Providers Hugo De Oliveira MD, [facility] Aldo Ward, NEWS CAMERAMAN + Chantelle Alonzo, NEWS CAMERAMAN + Rosalie Pinzon, NEWS CAMERAMAN + RICK García + BALDOMERO Gao RN + CAROL Lemus, PhD [facility] What are functional bowel disorders? These are the most common type of gastrointestinal disorders in the [facility] The most common functional bowel disorder [...] what is the impact? 15-20% of general [place] population has IBS or FD or both IBS is the 2nd most common cause for lost work days (after common cold) in [place] IBS is estimated to cost the [place] economy 30 billion dollars per year These [...] with immediate onset of symptoms after infection); usp symptoms are expected in most patients however [...] - this approach benefits most patients OTC (rone-ute-btzgkic) medications can be used for ongoing bothersome symptoms as listed below Your doctor (PCP or local Gastroenterology provider or Gastroenterology provider) may decide [...] include All-Bran psyllium buds, Metamucil, bulk psyllium ([place] food stores and bulk stores) Specifically we [...] but convincing medical evidence is still lacking Bwbl-rfl-faxalbc supplements are not typically evaluated by FDA [...] on IBS Headspace (anxiety/stress/mindfulness) Calm (anxiety/stress/mindfulness) CBT-I golf coach (insomnia/sleep problems) Curable (chronic pain) There [...] - you may find a provider at [facility] OTC Medications for Functional Gut Disorders Diarrhea [...] a stool softener that is safe for usp usage (no risk of dependency) andthe dosage [...] bothersome symptoms despite dietary and lifestyle measures Mehdi and vitamin B6 may help with nausea [...] under the supervision of a Gastroenterology provider (local or ) or Primary Care Provider Authors are not liable for misuse/misinterpretation of this information Patient Resources [place] [employer] https://www.gastro.org/practice-guidance/nr-aatxqgm-qhiuvw/ topic/swhnwtayv-obdgp-zuxqtomo-ibs Badgut.org https://badgut.org/information-centre/b-y-zzkfmvknp-topics/ibs/ AboutIBS.org https://www.aboutibs.org/ Qwilrtodate.com https://www.[employer]/contents/hpvlvsnzq-yoyfn-ehuhfrbo-mnpidd-dtl-vpvids Constipation Management Suggestions for Patients and Primary Care Providers Step 1 - Continue/start daily Miralax as follows (which may not be covered by insurance and can be obtained over the counter; patient should speak with their local managing provider if prescription is needed): 1) Start with 1 capful of Miralax at night with a goal of at least 1 bowel movement per day 2) Patient can adjust the dose every 2-3 days as needed, but do not adjust the dosing every day as Miralax needs several days to fully work. The right Miralax dose depends on the patient. Consider several trials of: (1) trying to increase the nighttime dose to two caps, (2) adding a second morning dose, or (3) taking Miralax in the morning (instead of at night). 3) Loose stools and bloating become especially bothersome at doses higher than 2 capfuls twice daily, so higher doses are not recommended beyond 2 caps twice daily. 4) On days with loose stools, consider reducing Miralax to 1/2 capful daily, but still take at least some Miralax every day. - Consider Metamucil (psyllium fiber) supplement. The no added sweeteners version is generally the easiest to tolerate and least likely to cause bloating (although one can use one with sugar or artificial sweetener if preferred and tolerated). Start at 1 teaspoon daily for 1 week, then 2 teaspoons daily for one week, then maintain one tablespoon daily afterward. Patients can slowly increase to 2 tablespoons daily if still constipated. Patients can titrate up and down on metamucil alongside miralax as needed. This combination of stool softener and fiber supplementation works well for the majority of patients with constipation and is safe for long-term usage. Step 2 If constipation persists for at least two weeks at the target dose, then try four consecutive dietary trials added to the regimen. Each dietary trial should be last at least two weeks and be done separately: 1) Make a smoothie once daily made of ?? cup kefir, ?? cup papaya, 1/3 cup aloe juice, one peeled (green or gold) kiwi fruit, blended with ice. 2) Take two peeled (green or gold) kiwifruit per day. 3) Mix 1 cup apple sauce, 1 cup oat bran, ?? cup prune juice. Take one Tbsp. Daily. Freeze the restin an ice cube tray to use as needed. 4) Drink Smooth Move tea once at night 5) Any combination of the the above Step 3 If the dietary interventions do not work to satisfaction, then trial each of the following bbwn-rzy-wlatocb interventions. Each trial should be last at least four weeks and be done separately: IBGard, FDGard, Florastor probiotic, Align probiotic, VisBiome probiotic and mehdi capsules or mehdi tea. Step 4 If constipation symptoms remain bothersome despite all of the above measures the PCP and patient can consider trialing prescription medications. Please note that the above measures (any or all) can be continued with prescription medications and combination therapy is indeed typically more successful than any individual therapy on its own. PCP can escalate to on-label IBS-C drug therapy failing laxatives for >90 days (in no particularorder). NB: It is up to the prescribing provider to ensure that there are no contraindications or dosage adjustments required for individual patients. Generally speaking, try each drug for at least 90 days before stopping or before changing dose if the concern is ineffectiveness (as long as the drug is tolerated): 1) consider linaclotide (Linzess) - start 72 mcg daily and increase as needed to max daily dosage of 290 mcg daily. This may also benefit visceral hypersensitivity at higher dosages. Consider dissolving in a cup of water and drinking 1/2 glass of water if 72 mcg is too strong. The most common side effect is diarrhea. 2) switch to plecanatide (Trulance) - start 3 mg daily if experiencing bothersome diarrhea with 72 mcg linaclotide. This may also benefit visceral hypersensitivity at higher dosages. Consider dissolving in a cup of water and drinking 1/2 glass of water if 3 mg is too strong. The most common side effect is diarrhea. 3) consider IBSRela (tenapanor) 50 mg twice a day. This may also benefit visceral hypersensitivity.The most common side effect is diarrhea. Please note that it is best to prescribe this via [facility]) for assistance with benefits investigations and prior authorizations. 4) consider lubiprostone 8 mcg twice daily for IBS-C/CIC overlap failing empiric fiber/laxatives >90 days. The most common side effects are nausea and diarrhea. 5) consider prucalopride (Motegrity) 2 mg daily for chronic idiopathic constipation (overlapping with IBS-C as a second diagnosis) failing the above options. The most common side effect is diarrhea. Headaches are another potential side effect but typically dissipate after 24 hours of therapy. Palpit ations can also occur which are typically benign but can be bothersome and generally necessitate discontinuation. It is recommended to ensure that there is no active suicidal ideation (and document this) prior to starting this medication as per FDA recommendations. 6) consider combination therapy of any of the options 1-4 with prucalopride Rescue Therapy Consider rescue therapy to help empty the colon prior to initiating any of the above trials to maximize the potential for success. This may also be needed intermittently if constipation worsens. Rescue regimen if no bowel movement for 2 days despite the bowel regimen above Step 1) use a glycerin suppository at night then try to have a bowel movement in 10-15 minutes. Tryagain if this is ineffective. Step 2) If glycerin is ineffective, use a warm (not hot) tap water enema. Try again if ineffective. Step 3) If enema is ineffective, try up to four senna tabs Step 4) if senna does not work, try a dulcolax suppository 30 minutes later Step 5) if ongoing issues try Miralax 14 capules mixed with 2 L of gastrorade single dose over 4 hours. Can repeat next day if required. No dietary restrictions required. Resume aggressive maintenance therapy with laxatives immediately afterwards. Step 6) if no bowel movements after the above recommend seeking urgent care or primary care guidance. RTC in 1 year with [facility] provider to further consolidate the GI care plan for the patient's local team. Due to the consultative nature of our practice, the patient should continue to work with his primary care physician as the primary point of contact for urgent issues, medication refills andadjustments as needed for continuity of care purposes in between visits to our center based on the recommendations above. [facility] Behavioral Medicine Groups (all virtual) The below groups are designed to help you improve the brain-gut connection and/or manage GI or weight-related concerns. If you'd like to learn more about the brain-gut connection and our services, please visit the [facility] GI Behavioral health website at: [email or web address]. Our hope is that through these classes, we can meet the needs of more patients. If a class you signed up for is starting and you are too busy or no longer need it, please cancel so we can give the spot to someone else. If you do not show up for the first class in a series, the remaining classes in the series will be cancelled. Patients with multiple no-shows may not be scheduled for future programs. Multi-visit group class schedule: Intro to Relaxation Skills Goal: learn different relaxation techniques, understand how relaxation can help GI symptoms, and learn to integrate the techniques into your life. Important notes: best attended from a quiet environment Next classes: at 4:00 pm on 07/25, 08/01, 08/08, & 08/15 (Leader: Kvng) Gut-directed Hypnotherapy Goal: decrease GI symptoms (e.g. abdominal pain, bloating, sensitive or uncomfortable belly) and/orimprove your ability to manage the symptoms. Important notes: requires a quiet environment and attendance from a chair/couch where you can comfortably lean your head back on something. Please review screening letter before starting the group. Next classes: at 5:00 pm on 06/20, 06/27, 07/04, 07/11, 07/18, 07/25, 08/01, & 08/08 (Leader: Azucena) FULL Tuesdays at 4:00 pm on 07/30, 08/06, 08/13, 08/20, 08/27, 09/03, 09/10, 09/24 (Leader: Miko) FULL Managing Your Chronic Pain Goal: reduce the ways in which chronic pain impacts your daily life Next class: at 4:00 pm on 08/29, 09/05, 09/12, & 09/19 (Leader: Kvng) Living with GI Conditions Goal: finding ways of accepting and living with chronic illness and limiting the control it has over your life. Next class: at 1:00 pm on 06/27, 07/04, 07/11, 07/18, & 07/25 (Leader: Kvng) In-Progress Managing Your Worries Goal: understand how GI symptoms and worry/anxiety can worsen each other and learn steps for managing both. Next class: Wednesdays at 5:00 pm on 07/24, 07/31, 08/07, 08/14, 08/21, & 08/28 (Leader: Azucena) FULL Wednesdays at 1:00 pm on 08/28, 09/04, 09/11, 09/18, 09/25 & 10/02 (Leader: Miko) Emotional Eating Goal: increase awareness of how emotion impacts eating and develop skills to eat more mindfully. Next Class: Wednesdays at 11:00 am on 08/28, 09/04, 09/11, & 09/18 Take ACTion Goals: develop skills to deal with difficult thoughts, feelings, cravings, and urges that make engaging in obesity care more challenging. Bring awareness to current behaviors and make choices that are consistent with what matters most to you. Next class: starts 07/22 and runs for 8 weeks on Mondays from 2:00-4:00 pm One-time workshop schedule: Insomnia Workshop Goal: Understand the ways in which thought & behavior patterns can make your sleep worse & leave with a set of recommendations on how to make changes to your own sleep routine. Next workshop: October 03 at 5:00 pm (Leader: Taj) Fatigue Workshop Goal: Learn strategies for managing fatigue and optimizing your energy and activity. Next workshop: August 27 at 5:00 pm (Leader: Azucena) Food re-introductions Goal: Understand the ways that GI symptoms, food avoidances, and anxiety can make each other worse and come up with a personal plan for successfully expanding your diet Next workshop: July 03 at 5:00 pm (Leader: Miko) Trauma & GI Conditions Goal: Understand the complex relationship between trauma, mental health, and GI symptoms; become aware of the body's response to stress; & learn some strategies for managing emotions and behaviors Next workshop: July 30 at 5:00 pm (Leader: Miko) Hypnosis Graduates Group Continued practice for patients who have completed at least 4 visits of Gut- Directed Hypnotherapy Meets the Sunday of the month at 4pm. 2023 dates include 04/09, 05/14, 06/10, 07/08, 08/05 & 09/09 (Leader: Taj) Note: most, but not all insurance companies cover these classes. If you're concerned or want more information, please contact your insurance company or the [facility] billing office ([email or web address]). Your insurance company may request a CPT code if you ask about coverage. Most of our groups use the CPT code 91196, though a few use 46772/91650. Feel free to reach out if your insurance company covers one of these codes, but not the other. If you're interested in attending any of these groups, please reach out to our scheduling team via [facility] or phone ([phone]). documented in this encounter Progress Notes * Tasha Peralta APRN - 07/06/2023 4:00 PM EDT Images from the original note were not included. GI MOTILITY PROGRAM IN CLINIC VISIT Chief Complaint: Clare Crook is a 22 y.o. patient referred for consultation by Dr. No ref. provider found for dyspepsia and change in bowel pattern starting after COVID vaccine March 2020 Detailed History: 22 y.o. female with past medical history to include, but not limited to: no majormedical history 09/28/[address] De Oliveira - his a/p were as follows- 1. One year history of chronic dyspepsia [...] bloating consistent with IBS -diarrhea predominant (IBS-D). Consider duplex U/S if refractory pain Consider referral to GI psychology to work on specific psychologic measures for functional disorders Consider referral to GI dietitian 05/15/[address] De Oliveira - Interval history Concerned with 50 lb weight gain over last year Dyspepsia - pain predominant on regular basis Intermittent more severe RUQ pain Bowel moving regularly Plan: RUQ ultrasound +/- HIDA scan (ultrasound normal, she has had HIDA scans at an outside hospital since the symptoms began and reports it was normal), Referral to [facility] (times did not work for her), Referral to GI chemistry tutor (scheduled for July 26, 2023), consider duplex ultrasound if refractory pain, consider trial alternate PPI such as pantoprazole, follow up with PCP to address mental health issues-could be contributing to GI issues, consider trial of neuromodulator such as TCA Interval History: Did not engage [facility] - times of sessions are during her work hours July 25 appt coming up with GI Food Prep Worker Current symptoms - upper abdominal bloating - happens out of nowhere Currently moves bowels 1-2x a day usually. Some days she will go several times. [place] 1 with occasional straining just a couple times a month, otherwise variable [place] scale. Stool consistency varies by what she eats. Continues to have increased gastrocolic reflex - 5 min after she eats depending on what she eats. Spicy food makes diarrhea. No days without bowel movements. Sometimes incomplete emptying. No black or bloody stools. Endorses urgency. No bowel accidents. Water - 2 liters approximately/day Diet - non-restrictive except seafood. Picky eater. Has been tested for celiac - negative Current Regimen: Nothing Past Therapies: Omeprazole - diarrhea Zofran prn [...] past surgical history that includes Colonoscopy, Biopsy (08580) (N/A, 05/08/2022). Family History: family history includes [...] not use drugs. Physical Exam: VITAL SIGNS: Ht 149.9 cm (4' 11) BMI 35.00 kg/m?? BMI: Body mass index is 35 kg/m??. Questionnaire: No data to display Laboratory studies, imaging, and procedures (my review of prior records): 06/02/2022 MRE wwo contrast - No inflammatory bowel disease. 3.4 cm left adnexal/ovarian cyst. Adjacent pelvic free fluid may reflect interval rupture. #06/05/2022 GES - normal #06/23/2022 XR Fluoro Upper GI Single contrast with KUB to r/o SMA syndrome - no SMA #06/22/2023 Abdominal Ultrasound- 1. Normal size and echotexture of the liver. No focal hepatic lesion. 2. Patent main portal vein with hepatopetal flow. No perihepatic fluid. 3. Normal appearing gallbladder. No cholelithiasis or acute cholecystitis. No biliary duct dilatation. 4. Partial visualization of the pancreas which appears normal where seen. 5. Normal appearing right kidney. Colonscopy - 04/28/2022 - The entire examined colon is normal. Biopsied. - The examined portion of the ileum was normal. - Internal hemorrhoids. HIDA scan at outside hospital - normal per pt report Assessment/Plan: Ms. Crook is a 22 y.o. patient with the following GI issues: #Since March 2020 - chronic dyspepsia symptoms and change in bowel pattern. Sudden onset coincided with timing COVID vaccination March 2021. Sudden onset of N/V/diarrhea which has now normalized some. With regard to her upper GI symptoms she previously described early satiety, post-prandial bloating, and upper abdominal burning pain. Today she reports persistent upper abdominal bloating/pressure. Gastric emptying scan, MRE, RUQ ultrasound, HIDA scan done at outside hospital, and upper GI series have not shows evidence of organic disease. Celiac panel was negative on 06/05/2022. Omeprazoletrial gave her diarrhea and did not help her symptoms. She has not had a breath test. 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 Given the rather acute onset of symptoms and lack of preceding symptomatology this is suspicious for a postinfectious phenomena. We discussed the possibility of Small Intestinal Bacterial Overgrowth (SIBO) and we'll do a breath test to look for that. She also uses straws consistently and I suggest eliminating all use of straws whichcan contribute to bloating and dyspepsia. Last visit with Dr De Oliveira, he placed referrals to GI Food Prep Worker and GI Behavioral Health. She is scheduled to meet with GI Food Prep Worker on July 25. The times/schedule for GI Behavioral Health conflict with her work schedule. I think GI Behavioral Health would be most useful to her. She also might try a tricyclic neuromodulator to address the gut-brain connection and I will provide options below for her to consider with her PCP as we do not directly prescribe neuromodulators. Addendum - I noticed she did not have an EGD - ordered now on 07/25/23 . #Chronic altered bowel pattern with associated abdominal discomfort and bloating consistent with IBS - mixed. She previously had more diarrhea but now continues to have a variable bowel pattern - approximately 1-2 stools daily but has some days where she goes several times and bowel pattern seems highly associated with which foods she has eaten with increased gastrocolic reflex. She has [place] 1 stools a couple times a month but her overall pattern is not suggestive of chronic constipation or overflow diarrhea. Colonoscopy Apr 2022 was reassuring for no IBD or other organic disease. Recommendations Diagnostics #Hydrogen breath test - Our motility lab will reach out to you to schedule these test(s). 07/25/23 Addendum: #EGD with MAC, esophageal, gastric, duodenal biopsies Therapeutics #Eliminate use of straws #Simethicone (Gas-X) can be helpful for occasional usage for painful bloating #Avoid NSAID medications such as ibuprofen, naproxen (Advil, Aleve, Motrin) #Avoid carbonated beverages, chewing gum, and sucking on hard candies #Consider trying enteric-coated peppermint for upper GI symptoms and bloating. This is available under the brand name IB Guard at stores but you may also buy it less-expensively in generic form online - be sure it is enteric-coated. Use as needed up to several times a day for upper abdominal discomfort. Enteric- coated peppermint can increase heartburn in some people and if this is the case, discontinue. #Consider adding fiber using these directions for one of two options: Benefiber one teaspoon mixed in 8 oz of fluid daily. Increase by one teaspoon per day every week astolerated up to 2 Tbs per day. If this makes symptoms worse, please stop. OR Begin Metamucil or psyllium husk fiber (make sure it is free of artificial sweetener): 1tsp daily for one week, then 2tsp daily for one week, then 3tsp (1TBSP) daily. May increase slowly up to 2 TBSPdaily. Titrate according to what works best for you.This may cause bloating initially but this willimprove with continued use. If this supplement causes too much bloating you may try Citrucel. If after 6-8 weeks the Metamucil or Citrucel is not helping, discontinue. #Tumeric may help with pain and bloating in some patients #Consider starting a neuromodulator to help regulate the gut-brain communication which creates these symptoms. I am providing options below for your PCP. #Use the Functional Bowel Handout as a tool for ongoing symptoms of Functional Dyspepsia and Irritable Bowel Syndrome #Work with the GI Food Prep Worker #If you are able to engage with GI Behavioral Health I think this would be most helpful. Follow-up #Follow-up in 1 year for a check in about Functional Dyspepsia and Irritable Bowel Syndrome if desired. If your Hydrogen Breath Test is abnormal you will hear from me through the portal and I will prescribe a round of Rifaximin for SIBO. Due to the consultative nature of our practice, the patient should continue to work with primary care provider as the primary point of contact for urgent issues, medication refills and adjustments asneeded for continuity of care purposes in between visits to our center based on the recommendationsabove. Treatment for PCP/local team to consider based on appropriateness from a non- GI/psych standpoint Neuromodulators for the local managing provider to consider (depending on appropriateness from a mental health/non-GI standpoint as determined by the PCP; try zcx-ey-y-time for at least ~90 days eachbefore switching therapy, as long as tolerated) 1. Consider mirtazapine 7.5mg qhs titrating up to 15mg or 30mg at night, or 15mg twice daily as needed, (most side effects are sedation and blurred vision) 2. Consider buspirone 7.5mg nightly, uptitrating to 15mg twice daily (possible side effects can include sedation, headache and vertigo) 3. Consider desipramine 10mg at night, increase to 25mg as needed (possible side effects can include drowsiness, dry mouth, constipation, sexual dysfunction, arrhythmias, and weight gain) 4. Consider duloxetine or venlafaxine, (possible side effects can include nausea, agitation, dizziness, sleep disturbance, fatigue, and liver dysfunction) Total time spent on encounter today: 60 minutes Time spent reviewing records prior to this encounter on day of appointment: 0 minutes Time spent during encounter with patient including counselin minutes Time spent documenting encounter after office visit on day of appointment: 10 minutes Tasha Peralta APRN [facility] [place] [id number] documented in this encounter Plan of Treatment Scheduled Procedures Name Priority Associated Diagnoses Date/Ti me EGD, UPPER GI ENDOSCOPY (WRV U 2.09) Nausea and vomiting, unspecified vomiting type Functional dyspepsia Abdominal bloating Scheduled Referrals Name Type Priority Associated Diagnoses Orde r Schedule Amb [facility] Outpatient Referral Routine Functional dyspepsia Irritable bowel syndrome with both constipation and diarrhea Ordered: 07/07/2023 documented as of this encounter Visit Diagnoses Diagnosis Functional dyspepsia Dyspepsia and other specified disorders of function of stomach Irritable bowel syndrome with both constipation and diarrhea Abdominal bloating Flatulence, eructation, and gas pain documented in this encounter Care Teams Lift Supervisor Relationship Specialty Start Date End Date None None PCP - General 06/05/22 documented as of this encounter
--- OUTSIDE RECORDS SUMMARY | 2024-04-14 21:50 | XMS_ITS | Encounter Summary ---
[place] [address] Care Team Providers Care Artifacts Conservator Name Role Phone None Primary Care Provider Unavailabl e Encounter Details Date Type Department Care Team (Late st Contact Info) Description 07/20/2023 Telephone [place] [address] Rolly Arizmendi Social History Tobacco Use Types Packs/Day Years [...] on file documented as of this encounter Miscellaneous Notes * Telephone Encounter - Rolly Arizmendi - 08/27/2023 4:06 PM EDT Inbound/Outbound: Outbound Spoke to Patient/Left Message: Left message Notes: Outbound call to patient to schedule motility lab testing from referral. Left message askingfor callback to schedule. Lvm 2nd attempt. Final letter sent. Return calls can be handled by: [facility] Control Supervisor * Telephone Encounter - Rolly Arizmendi - 07/20/2023 10:57 AM EDT Inbound/Outbound: Outbound Spoke to Patient/Left Message: Left message Notes: Outbound call to patient to schedule motility lab testing from referral. Left message askingfor callback to schedule. Return calls can be handled by: [facility] Control Supervisor documented in this encounter Plan of Treatment Scheduled Procedures Name Priority Associated Diagnoses Date/Ti me EGD, UPPER GI ENDOSCOPY (WRV U 2.09) Nausea and vomiting, unspecified vomiting type Functional dyspepsia Abdominal bloating documented as of this encounter Visit Diagnoses Not on filedocumented in this encounter Care Teams Artifacts Conservator Relationship Specialty Start Date End Date None None PCP - General 06/05/22 documented as of this encounter
--- OUTSIDE RECORDS SUMMARY | 2024-04-14 21:50 | XMS_ITS | Encounter Summary ---
[place] [address] Care Team Providers Care Elementary Science Teacher Name Role Phone None Primary Care Provider Unavailabl e Reason for Visit * Diagnostic Test (Routine) - Closed Specialty Diagnoses / Procedures Referred By Kathryn early Referred To Contact Radiology Diagnoses Diarrhea, unspecified type Chronic abdominal pain Procedures NM Gastric Emptying Scan Hugo De Oliveira MD [facility] [place] [address] [place] [address] Referral ID Status Reason Start Date Expiration Date V isits Requested Visits Authorized [id number] Closed Specialty Service Requested 04/11/2022 10/10/2023 1 1 Encounter Details Date Type Department Care Team (Latest Contact Info) Description 06/05/2022 10:18 AM EDT Hospital En[place] [address] Hugo De Oliveira MD [facility] [place] [address] Discharge Disposition: Home Social History [...] who have questions please contact the health personal carer that requested your imaging first. ? Electronically signed by: Perfecto Rudolph MD, [facility] ([phone]), at 06/05/2022 3:31 PM Narrative 06/05/2022 3:31 [...] patients who have questions please contactthe health personal carer that requested your imaging first. Hugo De Oliveira MD [facility] [place] documented in this encounter Visit Diagnoses Not on filedocumented in this encounter Care Teams Elementary Science Teacher Relationship Specialty Start Date End Date None None PCP - General 06/05/22 documented as of this encounter
--- OUTSIDE RECORDS SUMMARY | 2024-04-14 21:50 | XMS_ITS | Encounter Summary ---
Author Organization [facility] Address [facility] [place] [address] Care Team Providers Care Electrical Engineering Designer Name Role Phone None Primary Care Provider Unavailabl e Encounter Details Date Type Department Care Team (Latest Contact Info) Description 06/23/2022 7:33 AM EDT - 06/23/2022 11:59 PM EDT Hospital Encounter XRay at [address] [place] [address] Hugo De Oliveira MD [facility] [place] [address] Diarrhea, unspecified type; Chronic abdominal pain Discharge [...] Procedure Name Priority Date/Time Associated Diagnosis Comments XR FLUORO UPPER GI SINGLE CONTRAST WITH KUB Routine 06/23/2022 8:31 AM EDT Diarrhea, unspecified type Chronic abdominal pain documented in this encounter Results * XR Fluoro Upper GI Single contrast With KUB (06/23/2022 8:31 AM EDT) Anatomical Region Laterality Modality N/A Radio Fluoroscop y Impressions 06/23/2022 9:04 AM EDT 1. ??Limited, focused, single contrast UGI. 2. ??No evidence of SMA syndrome. I have personally reviewed the image(s) and the resident's interpretation and agree with the findings, Richa Reyes MD at 06/23/2022 9:04 AM Thank you for letting us participate in the care of this patient. ??If you are a health care provider and have any questions regarding this report, please contact the number below. ??For patients who have questions please contact the health residential caregiver that requested your imaging first. ? Electronically signed by: Richa Reyes MD, [facility] ([phone]), at 06/23/2022 9:04 AM Narrative 06/23/2022 9:04 AM EDT EXAMINATION: XR FLUORO UPPER GI SINGLE CONTRAST WITH KUB CLINICAL HISTORY: dyspepsia. please protocol to specifically rule out SMA syndrome. TECHNIQUE: Single contrast upper GI was performed for the specific purpose of evaluation for SMA syndrome. Dedicated views of the esophagus and stomach were not obtained in order to decrease radiation dose to the patient. Fluoroscopy time: 2.73 minutes COMPARISON: None FINDINGS: The esophagus is normal in course and caliber on one view. Esophageal peristalsis is normal. The gastroesophageal junction is normally positioned. Mucosal evaluation of the esophagus and stomach is limited in this focused single contrast study. No gastroesophageal reflux was observed. The stomach is normal in course. Enteric contrast passes readily through the pylorus. The duodenum is normal in course and caliber. Enteric contrast passes midline without difficulty. No evidence of SMA syndrome or malrotation. Procedure Note Richa Reyes MD - 06/23/2022 EXAMINATION: XR FLUORO UPPER GI SINGLE CONTRAST WITH KUB CLINICAL HISTORY: dyspepsia. please protocol to specifically rule outSMA syndrome. TECHNIQUE: Single contrast upper GI was performed for the specific purpose ofevaluation for SMA syndrome. Dedicated views of the esophagus and stomach were notobtained in order to decrease radiation dose to the patient. Fluoroscopy time: 2.73 minutes COMPARISON: None FINDINGS: The esophagus is normal in course and caliber on one view. Esophageal peristalsis is normal. The gastroesophageal junction is normally positioned. Mucosal evaluation of the esophagus and stomach is limited in thisfocused single contrast study. No gastroesophageal reflux was observed. The stomach is normal in course. Enteric contrast passes readily throughthe pylorus. The duodenum is normal in course and caliber. Enteric contrast passesmidline without difficulty. No evidence of SMA syndrome or malrotation. IMPRESSION 1. Limited, focused, single contrast UGI. 2. No evidence of SMA syndrome. I have personally reviewed the image(s) and the resident's interpretationand agree with the findings, Richa Reyes MD at 06/23/2022 9:04 AM Thank you for letting us participate in the care of this patient. If youare a health care provider and have any questions regarding this report,please contact the number below. For patients who have questions please contactthe health residential caregiver that requested your imaging first. Electronically signed by: Richa Reyes MD, [facility]([phone]), at 06/23/2022 9:04 AM Hugo De Oliveira MD IMG FLUORO ORDERABLE S documented in this encounter Visit Diagnoses Diagnosis Diarrhea, unspecified type Chronic abdominal pain Abdominal pain, unspecified site documented in this encounter Administered Medications Inactive Administered Medications - up to 3 most recent administrations Medication Order MAR Action Action Date Dose Rate Site barium sulfate (Ezpaque) 60% (w/v) oral liquid 0-710 mL 0-710 mL, Oral, ONCE PRN, 1 dose, Starting on Sun06/23/22 at 0805, Until Sun06/23/22 at 0832, Per Protocol, Radiology Contrast, Routine Given 06/23/2022 8:32 AM EDT 80 mLs documented in this encounter Care Teams Electrical Engineering Designer Relationship Specialty Start Date End Date None None PCP - General 06/05/22 documented as of this encounter
--- OUTSIDE RECORDS SUMMARY | 2024-04-14 21:50 | XMS_ITS | Encounter Summary ---
[place] [address] Care Team Providers Care Editor In Chief Name Role Phone None Primary Care Provider Unavailabl e Encounter Details Date Type Department Care Team (Latest Contact Info) Description 05/15/2023 Travel Social History Tobacco Use Types Packs/Day [...] on filedocumented in this encounter Care Teams Editor In Chief Relationship Specialty Start Date End Date None None PCP - General 06/05/22 documented as of this encounter
--- OUTSIDE RECORDS SUMMARY | 2024-04-14 21:50 | XMS_ITS | Encounter Summary ---
Author Organization [facility] Address [facility] [place] [address] Care Team Providers Care Customer Success Representative Name Role Phone Jordan Shaver PAULIE Primary Care Provider [phone] Encounter Details Date Type Department Care Team (Late st Contact Info) Description 05/08/2022 12:10 PM EST Anesthesia [place] [address] Julio Mohan MD [facility] [place] [address] Rolly Smith CRNA [facility] [place] [address] Anesthesia Record Procedure Summary Procedure Name Responsible Anesthesiologist Anesthesia Start Time Anesthesia Stop Time COLONOSCOPY FLEXIBLE, WITH BX (WRVU 3.56) Julio Mohan MD 05/08/22 1210 05/08/22 1232 Events Date Time Event Comment 05/08/2022 1129 1210 AN Verify 1210 Start 1210 An Start Data 1215 An Induction 1215 Anesthesia Ready 1231 an stop data 1232 Recovery or ICU Handoff Solange ent care was transferred to the destination unit staff after review of the patient's medical history, current anesthetic/surgical status and plan, according to the Provider Handoff Checklist. 1232 Stop Meds Name Total IV Lidocaine 40 mg Propofol 200 mg Propofol INF 326.74 mg * Agents Name O2 Air N2O O2 Auxiliary Flowmeter 1 * Blood No blood administrations on file. Lines, Drains, and Airways Type Details Placement Removal (RETIRED) Peripheral IV Line - Single Lumen 05/08/22; 1111; metacarpal vein (top of hand), right; qiqg-bez-rbeisl catheter system; US Not Used; 22 gauge; Tata Boateng RN; distraction; no longer indicated; 05/08/22; 1316 05/08/22 1111 by Anais Boateng RN 05/08/22 1316 by Karie Jenkins RN documented in this encounter Social History Tobacco Use Types Packs/Day Years [...] on file documented as of this encounter OR Notes * Anesthesia Postprocedure Evaluation - Julio Mohan MD - 05/08/2022 1:14 PM EST Department of Anesthesiology Post-procedure Note Patient: Clare Crook Procedure Summary Date: 05/08/22 Room / Location: [facility] ENDO 3 / [facility] ENDOSCOPY Anesthesia Start: 1210 Anesthesia Stop: 1232 Procedure: COLONOSCOPY FLEXIBLE, WITH BX (WRVU 3.66) Diagnosis: Diarrhea, unspecified type Chronic abdominal pain (dyspepsia) Surgeons: Mikel Walton MD Responsible Provider: Julio Mohan MD Anesthesia Type: MAC ASA Status: 2 All Anesthesia Providers: Anesthesiologist: Julio Mohan MD ARMED CUSTOM PROTECTION OFFICER: Rolly Smith CRNA Vitals Value Taken Time BP 107/75 05/08/22 1310 Temp Pulse Resp SpO2 98 % 05/08/22 1311 Pain Level 0 05/08/22 1250 Vitals shown include unvalidated device data. Patient Location: PACU/[facility] Level of Consciousness: Conscious but Sleepy Pain Management: Satisfactory Analgesia PONV: None Cardiovascular Status: At Baseline and Hemodynamically Stable Respiratory Status: At Baseline and Room Air Postoperative Fluid Status: Intravascular EUvolemia Possible Anesthetic Complications: NONE apparent at time of evaluation Final Primary Anesthesia Type: MAC (The anesthetic type performed was the same as planned.) Comments: Julio Mohan MD * Anesthesia Preprocedure Evaluation - Julio Mohan MD - 05/08/2022 9:41 AM EST Pre-Anesthesia Evaluation for: Clare Crook a 21 y.o. female. Procedure(s): COLONOSCOPY, DIAGNOSTIC There are no problems to display for this patient. Past Medical History: Diagnosis Date ??? Asthma ??? Headache ??? Migraines No past surgical history on file. Social History Tobacco Use ??? Smoking status: Passive Smoke Exposure - Never Smoker ??? Smokeless tobacco: Never Substance Use Topics ??? Alcohol use: Never Social History Substance and Sexual Activity Drug Use Never Allergies Allergen Reactions ??? Compazine [Prochlorperazine] Other reaction(s): Unknown ??? Omeprazole Magnesium Other reaction(s): rash, diarrhea Medications: MAR and/or home medications have been reviewed. Physical Exam: Preprocedure Vitals Current as of 05/08/22 0941 No BP, pulse, respiration, SpO2, or temperature recorded. Height: 151.1 cm (4' 11.5) (04/11/22) Weight: 64.7 kg (142 lb 9.6 oz) (04/11/22) BMI: 28.32 IBW: 40 kg (88 lb 2.8 oz) Airway Assessment: Mallampati: II TM distance: >3 FB Neck ROM: full Cardiovascular Assessment: system normal Pulmonary Assessment: unlabored breathing Dental Assessment: - normal exam Misc Assessment: Last Filed Perioperative Cognitive Screening None Anesthesia Plan: ASA 2 MAC, with a(n) intravenous induction 21yo 64kg (BMI 28) F s/f colonoscopy PMH significant for asthma, chronic abdominal pain, migraines. No prior anesthetic records available for review but denies previous complications. Plan: MAC, PIV access, standard ASA monitors Region - Other Informed Consent: Anesthetic plan and risks discussed with patient. Plan discussed with ARMED CUSTOM PROTECTION OFFICER. Anesthesia Screening documented in this encounter Plan of Treatment Scheduled Procedures Name Priority Associated Diagnoses Date/Ti me EGD, UPPER GI ENDOSCOPY (WRV U 2.09) Nausea and vomiting, unspecified vomiting type Functional dyspepsia Abdominal bloating documented as of this encounter Visit Diagnoses Not on filedocumented in this encounter Administered Medications Inactive Administered Medications - up to 3 most recent administrations Medication Order MAR Action Action Date Dose Rate Site lidocaine (pf) (Xylocaine) (20 mg/mL) 2% injection syringe Intravenous, PRN, Starting on Sun05/08/22 at 1215, Until Sun05/08/22 at 1232, Anesthesia Intra-op, Routine Given 05/08/2022 12:15 PM EST 40 mg propofoL (Diprivan) (10 mg/mL) infusion Intravenous, CONTINUOUS PRN, Starting on Sun05/08/22 at 1215, Until Sun05/08/22 at 1232, Anesthesia Intra-op, Routine Rate/Dose Change 05/08/2022 12:21 PM EST 350 mcg/kg/min 135.87 mL/hr Rate/Dose Change 05/08/2022 12:18 PM EST 250 mcg/kg/min 97 .05 mL/hr New Bag 05/08/2022 12:15 PM EST 150 mcg/kg/min 58.23 mL /hr propofoL (Diprivan) 10 mg/mL bolus injection (Anesthesia) Intravenous, PRN, Starting on Sun05/08/22 at 1215, Until Sun05/08/22 at 1232, Anesthesia Intra-op Given 05/08/2022 12:19 PM EST 100 mg Given 05/08/2022 12:17 PM EST 50 mg Given 05/08/2022 12:15 PM EST 50 mg documented in this encounter Care Teams Customer Success Representative Relationship Specialty Start Date End Date Jordan Shaver DNP [address] [place] [address] PCP - General Family Medicine 04/02/19 06/04/22 documented as of this encounter
--- OUTSIDE RECORDS SUMMARY | 2024-04-14 21:50 | XMS_ITS | Encounter Summary ---
[place] [address] Care Team Providers Care Cancer Genetic Counselor Name Role Phone None Primary Care Provider Unavailabl e Encounter Details Date Type Department Care Team (Latest Contact Info) Description 07/06/2023 Travel Social History Tobacco Use Types Packs/Day [...] on filedocumented in this encounter Care Teams Cancer Genetic Counselor Relationship Specialty Start Date End Date None None PCP - General 06/05/22 documented as of this encounter
--- OUTSIDE RECORDS SUMMARY | 2024-04-14 21:50 | XMS_ITS | Encounter Summary ---
[place] [address] Care Team Providers Care Consumer Analyst Name Role Phone None Primary Care Provider Unavailabl e Reason for Referral * Diagnostic Test (Routine) - Closed Specialty Diagnoses / Procedures Referred By Contac t Referred To Contact Radiology Diagnoses Diarrhea, unspecified type Chronic abdominal pain Procedures NM Gastric Emptying Scan Hugo De Oliveira MD [facility] [place] [address] [place] [address] Referral ID Status Reason Start Date Expiration Date V isits Requested Visits Authorized [id number] Closed Specialty Service Requested 04/11/2022 10/10/2023 1 1 Reason for Visit * Diagnostic Test (Routine) - Closed Specialty Diagnoses / Procedures Referred By Contac t Referred To Contact Radiology Diagnoses Diarrhea, unspecified type Chronic abdominal pain Procedures NM Gastric Emptying Scan Hugo De Oliveira MD [facility] [place] [address] [place] [address] Referral ID Status Reason Start Date Expiration Date V isits Requested Visits Authorized [id number] Closed Specialty Service Requested 04/11/2022 10/10/2023 1 1 Encounter Details Date Type Department Care Team (Latest Contact Info) Description 06/05/2022 10:16 AM EDT - 06/05/2022 10:17 AM EDT Hospital Encounter [place] [address] Hugo De Oliveira MD [facility] [place] [address] Diarrhea, unspecified type; Chronic abdominal pain Discharge [...] who have questions please contact the health hearing care practitioner that requested your imaging first. ? Narrative 06/05/2022 3:31 PM EDT EXAMINATION: NM [...] patients who have questions please contactthe health hearing care practitioner that requested your imaging first. Hugo De Oliveira MD IM NM ORDERABLES documented in this encounter Visit Diagnoses Diagnosis Diarrhea, unspecified type Chronic abdominal pain Abdominal pain, unspecified site documented in this encounter Administered Medications Inactive Administered Medications - up to 3 most recent administrations Medication Order MAR Action Action Date Dose Rate Site technetium (Tc-99m) sulfur colloid injection 0-18 mCi 0-18 mCi, Oral, ONCE PRN, 1 dose, Starting on Sun06/05/22 at 1030, Until Sun06/05/22 at 1030, Per Protocol, Radiology Contrast, Routine Given 06/05/2022 10:30 AM EDT 0.62 mCi documented in this encounter Care Teams Consumer Analyst Relationship Specialty Start Date End Date None None PCP - General 06/05/22 documented as of this encounter
--- OUTSIDE RECORDS SUMMARY | 2024-04-14 21:50 | XMS_ITS | Encounter Summary ---
[place] [address] Care Team Providers Care Air Quality Specialist Name Role Phone None Primary Care Provider Unavailabl e Encounter Details Date Type Department Care Team (Late st Contact Info) Description 05/22/2023 Telephone [place] [phone] Kiesha Craig Social History Tobacco Use Types Packs/Day Years [...] encounter Miscellaneous Notes * Telephone Encounter - Federica Cronin - 05/30/2023 4:15 PM EST Incoming call from patient, hilaria VINCENZO. [facility] Please forward list to patient * Telephone Encounter - Kiesha Craig - 05/22/2023 1:47 PM EST Left message. Need to schedule a 30 min VINCENZO appointment with motility [facility] after ultrasound. Also seeing if they are interested in any behavioral health classes. documented in this encounter Plan of Treatment Scheduled Procedures Name Priority Associated Diagnoses Date/Ti me EGD, UPPER GI ENDOSCOPY (WRV U 2.09) Nausea and vomiting, unspecified vomiting type Functional dyspepsia Abdominal bloating documented as of this encounter Visit Diagnoses Not on filedocumented in this encounter Care Teams Air Quality Specialist Relationship Specialty Start Date End Date None None PCP - General 06/05/22 documented as of this encounter
--- OUTSIDE RECORDS SUMMARY | 2024-04-14 21:50 | XMS_ITS | Encounter Summary ---
[place] [address] Care Team Providers Care Preschool Teacher'S Assistant Name Role Phone None Primary Care Provider Unavailabl e Encounter Details Date Type Department Care Team (Late st Contact Info) Description 07/24/2023 Telephone [place] [phone] Lon Junior RN Social History Tobacco Use Types Packs/Day Years [...] encounter Miscellaneous Notes * Telephone Encounter - Lon Junior RN - 07/24/2023 4:04 PM EDT TC to pt. Spoke with pt. Pt checks her [employer] portal and sees [facility] message from Tasha. Pt states that she will read and then respond back via the [employer] portal. * Telephone Encounter - Lon Junior RN - 07/24/2023 4:01 PM EDT ----- Message from Tasha Peralta APRN sent at 07/22/2023 2:37 PM EDT ----- Regarding: FW: Unread Message Notification Unviewed message - please call patient with this message and find out if she has had an upper endoscopy and would like one before we meet for follow up or not. Tasha Curry ----- Message ----- From: Tasha Peralta APRN Sent: 07/07/2023 To: Clare Crook Subject: Unread Message Notification Dear Clare, My note and After Visit Summary are complete and you should be able to see them in your portal but I noticed I do not have a record of you ever having an upper endoscopy/EGD. Did you have one at another hospital at some point since your symptoms started in 2020? If not, I am happy to order one. Because other studies of your upper GI tract did not show any disease process and everything is consistent with Functional Dyspepsia, I expect an EGD will also not be very revealing but we would be looking for erosion of the tissue of your esophagus and stomach from acid which could cause symptoms if that is the case. It is up to you if you want to have this test. If you already had an EGD let me know either way so I make sure we are being complete. Tasha Diaz documented in this encounter Plan of Treatment Scheduled Procedures Name Priority Associated Diagnoses Date/Ti me EGD, UPPER GI ENDOSCOPY (WRV U 2.09) Nausea and vomiting, unspecified vomiting type Functional dyspepsia Abdominal bloating documented as of this encounter Visit Diagnoses Not on filedocumented in this encounter Care Teams Preschool Teacher'S Assistant Relationship Specialty Start Date End Date None None PCP - General 06/05/22 documented as of this encounter
--- OUTSIDE RECORDS SUMMARY | 2024-04-14 21:50 | XMS_ITS | Encounter Summary ---
[place] [address] Care Team Providers Care Scaling Machine Operator Name Role Phone None Primary Care Provider Unavailabl e Encounter Details Date Type Department Care Team (Latest Contact Info) Description 06/22/2023 Travel Social History Tobacco Use Types Packs/Day [...] on filedocumented in this encounter Care Teams Scaling Machine Operator Relationship Specialty Start Date End Date None None PCP - General 06/05/22 documented as of this encounter
--- OUTSIDE RECORDS SUMMARY | 2024-04-14 21:51 | XMS_ITS | Encounter Summary ---
[place] [address] Care Team Providers Care Distance Learning Administrator Name Role Phone Jordan Shaver DNP Primary Care Provider Encounter Details Date Type Department Care Team (Late st Contact Info) Description 12/30/2021 Telephone [place] [phone] Marisel Bonds Social History Tobacco Use Types Packs/Day Years Used Date Smoking Tobacco: Passive Smo ke Exposure - Never Smoker Smokeless Tobacco: Never Sex and Gender Information Value Date Recorded Sex Assigned at Not on file Gender Identity Not on file Sexual Orientation Not on file documented as of this encounter Miscellaneous Notes * Telephone Encounter - Marisel Bonds - 01/06/2022 5:37 PM EDT Opened in error. Marisel Bonds MA Patient Navigator Section of Gastroenterology & Hepatology documented in this encounter Plan of Treatment Scheduled Procedures Name Priority Associated Diagnoses Date/Ti me EGD, UPPER GI ENDOSCOPY (WRV U 2.09) Nausea and vomiting, unspecified vomiting type Functional dyspepsia Abdominal bloating documented as of this encounter Visit Diagnoses Not on filedocumented in this encounter Care Teams Distance Learning Administrator Relationship Specialty Start Date End Date Jordan Shaver DNP [address] [place] [address] PCP - General Family Medicine 04/02/19 06/04/22 documented as of this encounter
--- OUTSIDE RECORDS SUMMARY | 2024-04-14 21:51 | XMS_ITS | Encounter Summary ---
[place] [address] Care Team Providers Care Asparagus Buncher Name Role Phone Jordan Shaver PAULIE Primary Care Provider Encounter Details Date Type Department Care Team (Late st Contact Info) Description 05/05/2022 Telephone [place] [address] Yair June Social History Tobacco Use Types Packs/Day Years [...] encounter Miscellaneous Notes * Telephone Encounter - Yair June - 05/05/2022 12:46 PM EST Clare Crook [id number] Diagnosis/Indication: dyspepsia Please review patient chart to confirm if previous Endoscopy procedure was performed within system. If yes, take note of Anesthesia type used. If previous procedure found, and with MAC/propofol Anesthesia support was used, schedule this procedure with Anesthesia and skip the Anesthesia portion of questions. If not performed within system, not performed at all, or performed with IVCS, ask Anesthesia questions. SCHEDULING QUESTIONS (ask all patient these questions) 1. Have you ever had a/an Colonoscopy before? No If yes, did you have any problems with the procedure (such as waking up during the procedure, pain or difficulties afterwards, etc.)? No What type of sedation was used: None 2. Do you take any blood thinners or have you been diagnosed with a bleeding disorder that increases your risk of bleeding with procedures? No 3. Do you have a Pacemaker or Defibrillator device? If yes, send pool message to Cardiology with patient information and date or procedure. No 4. Are you a diabetic? If yes, call PCP/managing provider to discuss use of prep and any questions or concerns related to. No 5. Do you take any iron supplements or vitamins that contain iron? No 6. Do you have a preference regarding the gender of your provider? No ANESTHESIA QUESTIONS (YES to any question, please book with Anesthesia support) 7. Have you ever been diagnosed with Pulmonary Hypertension and/or Congential Heart Disease? No 8. Have you been diagnosed with A-Fib (atrial fibrillation) that is NOT being well controled with medications? No 9. Have you ever had an allergic or adverse reaction to Fentanyl or Versed? No 10. Have you had a problem with sedation or anesthesia? (Waking up during procedure, extreme confusion after, etc.) No 11. Do you have a diagnosis of Obstructive Sleep Apnea that requires the use of a c-pap machine? No 12. Do you use an oxygen tank at home? No 13. Do you use a rescue inhaler more than twice per day? (COPD, severe asthma) No 14. Do you experience breathing problems when you lay flat for a period of time? No 15. Do you take prescription narcotic pain medications, including suboxone or methodone? No SCHEDULING CONFIRMATIONS: Please note any and all parts of your conversation with the patient here. 16. We offer all new patients an opportunity to have an appointment with one of our associate care providers to learn more about your upcoming procedure, ask questions and get answers. These appointments are offered via telehealth. Would you be interested in scheduling this appointment? (Only ask if NEW referral patient; skip this question if [facility] GI provider ordered the procedure.) No 17. Is there any other information or concerns you would like to us to share with your care team inrelation to your upcoming scheduled procedure? No 18. You must have a responsible libertarian who will drive you to your procedure, stay on campus for the entire duration of your procedure, and drive you home from your procedure. Who will likely be your recycling collections driver for the procedure? Estimated body mass index is 28.32 kg/m?? as calculated from the following: Height as of 04/11/22: 151.1 cm (4' 11.5). Weight as of 04/11/22: 64.7 kg (142 lb 9.6 oz). Age:21 y.o. documented in this encounter Plan of Treatment Scheduled Procedures Name Priority Associated Diagnoses Date/Ti me EGD, UPPER GI ENDOSCOPY (WRV U 2.09) Nausea and vomiting, unspecified vomiting type Functional dyspepsia Abdominal bloating documented as of this encounter Visit Diagnoses Not on filedocumented in this encounter Care Teams Asparagus Buncher Relationship Specialty Start Date End Date Jordan Shaver DNP [address] [place] [address] PCP - General Family Medicine 04/02/19 06/04/22 documented as of this encounter
--- OUTSIDE RECORDS SUMMARY | 2024-04-14 21:51 | XMS_ITS | Encounter Summary ---
Author Organization [facility] Address [address] [place] [address] Care Team Providers Care Bindery Chief Name Role Phone Unknown, Provider Primary Care Provider Unaaddison ilable Encounter Details Date Type Department Care Team (Late st Contact Info) Description 01/10/2023 Lab Requisition [facility] Pathology & Laboratory Medicine - [facility] [address] [place] [address] Outr Resulting Lab, Provider Social History Tobacco Use Types Packs/Day Years Used Date Smoking Tobacco: Never Assessed Comments Unknown Sex and Gender Information Value Date Recorded Sex Assigned at Not on file Legal Sex Female 9:48 EST Gender Identity Not on file Sexual Orientation Not on file documented as of this encounter Plan of Treatment Not on file documented as of this encounter Procedures Procedure Name Priority Date/Time Associated Diagnosis Comments HEPATITIS C AB W REFLEX TO HCV RNA BY PCR Routine 01/10/2023 13:51 EDT HEPATITIS B SURFACE ANTIBODY Routine 01/10/2023 13:51 EDT HEPATITIS B SURFACE ANTIGEN Routine 01/10/2023 13:51 EDT documented in this encounter Results * HEPATITIS B SURFACE ANTIBODY (01/10/2023 13:51 EDT) Hep B Surface Ab, Quantitative <3.1 See Note mIU/mL 01/11/2023 11:48 EDT [facility] Comment: Reference Range for Hep B Surface Ab, Quant: Positive: >= 10.0 mIU/mL Negative: ??< 10.0 mIU/mL Patient is presumed to not be immune to infection with Hepatitis B Virus. Hep B Surface Ab, Qualitative Negative See Note 01/11/2023 11:48 EDT [facility] Comment: Reference Range for Hep B Surface Ab, Qual: Unvaccinated: ??Negative Vaccinated: ??Positive Blood VENOUS BLOOD / Unknown 01/10/2023 13:51 EDT 01/10/2023 21:53 EDT us Provider Outr Resulting Lab CHEMISTRY & BLOOD GA S ORDERABLES Final Result [facility] [address] [place] [address] * HEPATITIS B SURFACE ANTIGEN (01/10/2023 13:51 EDT) Hep B Surface Ag Negative Negative 01/11/2023 11:02 EDT [facility] Blood VENOUS BLOOD / Unknown 01/10/2023 13:51 EDT 01/10/2023 21:53 EDT us Provider Outr Resulting Lab CHEMISTRY & BLOOD GA S ORDERABLES Final Result Performing Organization Address [facility] [address]/ZIP Co de Phone Number [facility] [address] [place] [address] * HEPATITIS C AB W REFLEX TO HCV RNA BY PCR (01/10/2023 13:51 EDT) Hep C Antibody Negative Negative 01/11/2023 12:13 EDT [facility] Blood VENOUS BLOOD / Unknown 01/10/2023 13:51 EDT 01/10/2023 21:53 EDT us Provider Outr Resulting Lab CHEMISTRY & BLOOD GA S ORDERABLES Final Result Performing Organization Address City/[facility] [address]/ZIP Co de Phone Number [facility] [address] [place] [address] documented in this encounter Visit Diagnoses Not on filedocumented in this encounter Care Teams Bindery Chief Relationship Specialty Start Date End Date Unknown, Provider, PCP - General 04/26/21 documented as of this encounter
--- OUTSIDE RECORDS SUMMARY | 2024-04-14 21:51 | XMS_ITS | Encounter Summary ---
[place] [address] Care Team Providers Care Rib Puller Name Role Phone Jordan Shaver DNP Primary Care Provider Encounter Details Date Type Department Care Team (Late st Contact Info) Description 05/05/2022 Telephone [place] [phone] Dolores Garcia Social History Tobacco Use Types Packs/Day Years [...] encounter Miscellaneous Notes * Telephone Encounter - Dolores Garcia - 05/16/2022 11:33 AM EST Colonoscopy completed 05/08 MRE scheduled for 06/02 GES scheduled for 06/05 UGIS scheduled for 06/[address] De Oliveira scheduled for 09/27 Will need labs drawn prior to appointment * Telephone Encounter - Dolores Garcia - 05/05/2022 10:20 AM EST Left message asking patient to contact the office for scheduling. Dr De Oliveira would like the patient scheduled for a colonoscopy, MRE, GES, labs and UGIS per his EOD list 04/11 MRE to be done AFTER colonoscopy per Dr De Oliveira documented in this encounter Plan of Treatment Scheduled Procedures Name Priority Associated Diagnoses Date/Ti me EGD, UPPER GI ENDOSCOPY (WRV U 2.09) Nausea and vomiting, unspecified vomiting type Functional dyspepsia Abdominal bloating documented as of this encounter Visit Diagnoses Not on filedocumented in this encounter Care Teams Rib Puller Relationship Specialty Start Date End Date Jordan Shaver DNP [address] [place] [address] PCP - General Family Medicine 04/02/19 06/04/22 documented as of this encounter
--- OUTSIDE RECORDS SUMMARY | 2024-04-14 21:51 | XMS_ITS | Encounter Summary ---
[place] [address] Care Team Providers Care Professional Architect Name Role Phone Jordan Shaver DNP Primary Care Provider Encounter Details Date Type Department Care Team (Latest Contact Info) Description 04/11/2022 Travel Social History Tobacco Use Types Packs/Day [...] on filedocumented in this encounter Care Teams Professional Architect Relationship Specialty Start Date End Date Jordan Shaver DNP [address] [place], [place] [id number] PCP - General Family Medicine 04/02/19 06/04/22 documented as of this encounter
--- OUTSIDE RECORDS SUMMARY | 2024-04-14 21:51 | XMS_ITS | Encounter Summary ---
[place] [address] Care Team Providers Care Survey Research Analyst Name Role Phone Rachel Shaver PAULIE Primary Care Provider Reason for Referral * Diagnostic Test (Routine) - Closed Specialty Diagnoses / Procedures Referred By Contac t Referred To Contact Cardiology Diagnoses Family history of acute congestive heart failure Procedures Echocardiogram Transthoracic(MH) Juan [place] [address] [facility] [place] [address] Referral ID Status Reason Start Date Expiration Date V isits Requested Visits Authorized [id number] Closed Specialty Service Requested 03/12/2019 03/11/2020 1 1 Encounter Details Date Type Department Care Team (Late st Contact Info) Description 04/02/2019 2:30 PM EST Office Visit [place] [address] Juan Oneill DO Family history of acute congestive heart failure; Family history of congenital heart defect Social History Tobacco Use Types Packs/Day Years Used Date Smoking Tobacco: Passive Smo ke Exposure - Never Smoker Smokeless Tobacco: Never Sex and Gender Information Value Date Recorded Sex Assigned at Not on file Gender Identity Not on file Sexual Orientation Not on file documented as of this encounter Last Filed Vital Signs Vital Sign Reading Time Taken Comments Blood Pressure 115/63 04/02/2019 2:10 PM EST Pulse 48 04/02/2019 2:02 PM EST Temperature - - Respiratory Rate 16 04/02/2019 2:02 PM EST Oxygen Saturation 100% 04/02/2019 2:02 PM EST Inhaled Oxygen Concentration - - Weight 59.6 kg (131 lb 6.4 oz) 04/02/2019 2:02 P M EST Height 151.1 cm (4' 11.5) 04/02/2019 2:02 PM ES T Body Mass Index 26.1 04/02/2019 2:02 PM EST Body Mass Index Percentile 89.40% 04/02/2019 2:0 2 PM EST Growth Chart: [facility] (Girls, 2- 20 Years) documented in this encounter Progress Notes * Juan Oneill, DO - 04/02/2019 2:30 PM EST Pediatric Cardiology Consult Note ?? Name: Clare Crook : 2000 Age: 18 y.o. [facility] ?? Referring Provider: Rachel Shaver APRN Reason for Consult/CC: Mother, aunt with PFO, CHF and strokes ?? Dear Rachel Shaver APRN, ?? It was a pleasure evaluating Clare Crook today in the pediatric cardiology clinic for evaluationgiven her family history. I performed a chart review of her records prior to this appointment and will summarize below: Clare is a 18 y.o. female who has been a healthy young lady up to now. Her mother was diagnosed with congestive heart failure and had a PFO as well as an aunt and a young cousin with PFO who had CVA symptoms that necessitated device closure. Mother's heat treatment technician Dr. Celso Boothe recommended Clare be evaluated given her family history. Maryjo is an active girl who participates in basketball, field hockey, and softball. She is in the 10th grade at [employer] and is receiving honors in her classes. She reports no abnormal cardiac or neurologic symptoms including chest pain, changes in vision, syncope, exertional fatigue, or palpitations. She does have a history of exercise-induced bronchospasm and uses her inhaler as needed for this. Past medical history: Exercise-induced asthma Past surgical history: No past surgical history on file. Family history: Mother has a history of congestive heart failure as well as a patent holt ovale.An aunt also had a PFO that required device closure due to stroke. A young cousin less than 1 year of age had device closure reportedly also due to abnormal neurologic events with PFO. No history of early or unexplained . No history of arrhythmias or pacemaker placement. No history of congenital hearing loss. Social history: Lives at home with her mother ?? Review of symptoms: Positive for shortness of breath with activity intermittently Complete review of symptoms was completed including constitutional/general, head, eyes, ears/nose/throat, respiratory, cardiovascular, lymphatic, hematologic, GI, , neurologic, musculoskeletal, endocrine, and skin systems. The pertinent positives are listed above and other systems are negative on review. Current Outpatient Medications on File Prior to Visit Medication Sig Dispense Refill ??? PROAIR HFA 90 mcg/actuation HFA Aerosol Inhaler INHALE 2 PUFFS BY MOUTH BEFORE EXERCISE NEEDED ??? montelukast (SINGULAIR) 10 mg Tablet TK 1 T PO QD No current facility-administered medications on file prior to visit. No Known Allergies ?? Physical Exam: Vitals: 04/02/19 1402 04/02/19 1408 04/02/19 1409 04/02/19 1410 BP: 137/59 127/67 118/61 115/63 BP Location (NBP): Right leg Left leg Right arm Left arm Patient Position: Lying Lying Sitting Sitting Pulse: (!) 48 Resp: 16 SpO2: 100% Weight: 59.6 kg (131 lb 6.4 oz) Height: 151.1 cm (4' 11.5) General Appearance: Alert, cooperative, in no distress, appropriate for age Head: Normocephalic, no obvious abnormality Eyes: EOM's intact, conjunctiva and corneas clear Nose: Nares symmetrical Throat: Oral mucosa are moist, pink Neck: Supple, symmetrical; no carotid bruit, no JVD Chest/Breast: No mass or tenderness to palpation along the costochondral joints Lungs: Clear to auscultation bilaterally, respirations unlabored Heart: Normal PMI, regular rhythm, normal rate for age, S1 and physiologically split S2; no murmur,clicks, rub or gallop. 2+/4 pulses in upper and lower extremities. Abdomen: Soft, non-tender no obvious organomegaly Musculoskeletal: Tone and strength normal and symmetrical with normal ROM Skin/Hair/Nails: Skin warm, dry, and intact, no rashes, no distal clubbing Neurologic: Alert and oriented, no focal defect noted ?? I personally reviewed and interpreted the following results. ?? ECG interpretation 04/02/19: Sinus bradycardia with sinus arrhythmia. Short [place] interval. Ventricular rate 48 bpm R-wave axis 57 [place] interval 110 msec QRS duration 88 msec QT 424 msec ?? Complete congenital 2D echocardiogram with color flow and Doppler analysis 04/02/19: 1. No anatomic abnormality was seen with complete standard exam. 2. Left and right ventricular chamber size, wall thickness and systolic performance appear normal. 3. The right and left atria are of normal size. 4. No atrial or ventricular level shunt visualized. 5. Normal valvar structure and function. 6. The aortic arch is normal in size, intact, without narrowing, dilatation or a coarctation. 7. There is no patent ductus arteriosus. ?? Assessment: Clare Crook is a 18 y.o. female who has no abnormality on her echo in terms of structure or function. She does have a short NY interval of 110 seconds, but without palpitations or any history suggestive of SVT this is likely an incidental finding that does not require routine follow-up. She has no visible shunt in her atrial septum, but imaging the atrial septum is somewhat limited in teenagers in adults due to the best evaluation of atrial septum being in the subcostal axis. We talked aboutthis today, and I would not suggest any additional testing at this time. However, if Clare were to develop any abnormal neurologic signs suggestive of transient ischemia events, I would recommend EDU with bubble study. Plan: - No restrictions to activity and no new medications recommended. - Endocarditis prophylaxis is not indicated per current AHA guidelines. - No routine follow-up ?? Thank you for your referral. If there are any questions we can answer in follow- up, please give ourteam a call. ?? Juan Oneill DO [facility] Pediatric Cardiology documented in this encounter Plan of Treatment Scheduled Procedures Name Priority Associated Diagnoses Date/Ti me EGD, UPPER GI ENDOSCOPY (WRV U 2.09) Nausea and vomiting, unspecified vomiting type Functional dyspepsia Abdominal bloating documented as of this encounter Procedures Procedure Name Priority Date/Time Associated Diagnosis Comments EKG 12-LEAD Routine 04/02/2019 2:05 PM EST Family history of acute congestive heart failure documented in this encounter Results * ECHO COMPLETE (04/02/2019 2:15 PM EST) Anatomical Region Laterality Modality Other 04/02/2019 Narrative 04/02/2019 4:19 PM EST Procedure: ?Pediatric Echocardiogram Patient: ?RAISA Morgan ?(Age): 2000(18y) ? Med Rec#: ? [id number] ?Sex: ?F ? [place] [facility] [place] / Wt: ??151(cm)/60(kg) Pt. Loc: ?Echo Lab ?BSA: ?1.6 ([facility]) Study Date: ?? 04/02/2019 ?Pt. Type: Study Quality: ? Referring: RACHEL SHAVER DEGE Referring: uJan Oneill ([id number]) Reading: Juan Oneill ([id number]) Mamma Logist: Payton Pinto Diagnosis: *Family history of ischemic heart disease and other diseases of the circulatory system (Z82.49) Rhythm: ? Sinus BP: ? 137/59 SUMMARY: 1. Complete echo for history of SVT. No anatomic abnormality was seen with complete standard exam. 2. Left and right ventricular chamber size, wall thickness and systolic performance appear normal. 3. The right and left atria are of normal size. 4. No atrial or ventricular level shunt visualized. 5. Normal valvar structure and function. 6. The aortic arch is normal in size, intact, without narrowing, dilatation or a coarctation. 7. There is no patent ductus arteriosus. 8. See remainder of report for additional findings. FINDINGS: ? Study Type ?2-D echo/SD/CD Situs And Relations ?There is levocardia with visceral and atrial situs solitus, atrioventricular concordance (D-looped ventricles) and normally related great arteries {S,D,S}. Venous Connections ?There are normal systemic and pulmonary venous connections, with the superior and inferior vena cavae returning into the right atrium, and all four pulmonary veins identified returning into the left atrium. Atrial Septum ?The interatrial septum is intact with no evidence of an atrial septal defect or patent foramen ovale. Atria ?The right and left atria are of normal size. Av Valves ?The tricuspid valve is functionally and structurally normal. ?There is physiologic tricuspid regurgitation. ?The mitral valve is normal in structure with no stenosis or regurgitation. Outflow Tracts ?The right and left ventricular outflow tracts have normal size and geometry, without obstruction or narrowing. Ventricles ?The right ventricle has normal chamber size, wall thickness and systolic function. ?The left ventricle has normal chamber size, wall thickness and systolic function. Ventricular Septum ?The interventricular septum is intact with no evidence of a ventricular septal defect. Semilunar Valves ?The pulmonary valve is normal, with normal leaflets, no stenosis or insufficiency. ?The aortic valve is normal with three leaflets, no stenosis, or insufficiency. Aortic Pulmonary Root ?The pulmonary root and sinuses are normal without dilatation or stenosis. ??The aorta sinuses of Valsalva and sinotubular junction are normal without stenosis or dilation. Thoracic Arteries ?The main and branch pulmonary arteries are normal in size and configuration, without narrowing or dilatation. ?There is no patent ductus arteriosus. ?The aortic arch is normal in size, intact, without narrowing, dilatation or a coarctation. ?There is a left sided aortic arch. Coronary Arteries ?The left main coronary artery originates normally from the left coronary sinus. ?The right coronary artery originates normally from the right coronary sinus. Effusion ?There is no pericardial or pleural effusion noted. Chambers MM ? Value(Units) ?? Range ? Z Score IVSd MM ?8.86 ??mm ? (6.37 - 11.74) ?- 0.1 ?? LVPWd MM ? 7.94 ??mm ? (6.24 - 10.76) ?- 0.5 ?? LVEDd dim MM ? 44 ??mm ? (41.10 - 54.73) ?-1.1 ?? LVEDs dim MM ? 29.3 ??mm ? (24.51 - 37.33) ?-0.5 ?? EF (Teichholz) MM ?62.4 ??% ?-?? Chambers 2D ? Value(Units) ?? Range ? Z Score LAs dim (AP) 2D ?28 ??mm ? -?? Tricuspid Valve ? Value(Units) ?? Range ? Z Score TR Vmax ?1.9 ??m/s ? -?? TR peak gradient ? 14 ??mm Hg ?-?? Aorta ? Value(Units) ?? Range ? Z Score AV lukas diam 2D ? 21 ??mm ? (16.44 - 22.89) ?0.8 ?? Ao root diam 2D ?28 ??mm ? (21.17 - 31.84) ?0.6 ?? Ao STJ diam ?22 ??mm ? (17.66 - 25.87) ?0.1 ?? Asc Ao diam (LAX) ?25 ??mm ? (18.87 - 28.73) ?0.5 ?? All Z scores are estimated This report has been electronically signed by: Juan Oneill MD ? 04/02/2019 16:18:47 Images reviewed and interpretation verified [facility] Cardiac Ultrasound Laboratory Procedure Note Juan Oneill DO - 04/21/2019 Procedure: Pediatric Echocardiogram Patient: RAISA JIANG(Age): 2000(18y) Med Rec#: [id number] Sex: F [place] [facility] [place]t / Wt: 151(cm)/60(kg) Pt. Loc: Echo Lab BSA: 1.6 ([facility]) Study Date: 04/02/2019 Pt. Type: Study Quality: Referring: RACHEL SHAVER DEGE Referring: Juan Oneill ([id number]) Reading: Juan Oneill ([id number]) Mamma Logist: Payton Pinto Diagnosis: *Family history of ischemic heart disease and other diseases of the circulatory system (Z82.49) Rhythm: Sinus BP: 137/59 SUMMARY: 1. Complete echo for history of SVT. No anatomic abnormality was seen with complete standard exam. 2. Left and right ventricular chamber size, wall thickness and systolic performance appear normal. 3. The right and left atria are of normal size. 4. No atrial or ventricular level shunt visualized. 5. Normal valvar structure and function. 6. The aortic arch is normal in size, intact, without narrowing, dilatation or a coarctation. 7. There is no patent ductus arteriosus. 8. See remainder of report for additional findings. FINDINGS: Study Type 2-D echo/SD/CD Situs And Relations There is levocardia with visceral and atrial situs solitus, atrioventricular concordance (D-looped ventricles) and normally related great arteries {S,D,S}. Venous Connections There are normal systemic and pulmonary venous connections, with the superior and inferior vena cavae returning into the right atrium, and all four pulmonary veins identified returning into the left atrium. Atrial Septum The interatrial septum is intact with no evidence of an atrial septal defect or patent foramen ovale. Atria The right and left atria are of normal size. Av Valves The tricuspid valve is functionally and structurally normal. There is physiologic tricuspid regurgitation. The mitral valve is normal in structure with no stenosis or regurgitation. Outflow Tracts The right and left ventricular outflow tracts have normal size and geometry, without obstruction or narrowing. Ventricles The right ventricle has normal chamber size, wall thickness and systolic function. The left ventricle has normal chamber size, wall thickness and systolic function. Ventricular Septum The interventricular septum is intact with no evidence of a ventricular septal defect. Semilunar Valves The pulmonary valve is normal, with normal leaflets, no stenosis or insufficiency. The aortic valve is normal with three leaflets, no stenosis, or insufficiency. Aortic Pulmonary Root The pulmonary root and sinuses are normal without dilatation or stenosis. The aorta sinuses of Valsalva and sinotubular junction are normal without stenosis or dilation. Thoracic Arteries The main and branch pulmonary arteries are normal in size and configuration, without narrowing or dilatation. There is no patent ductus arteriosus. The aortic arch is normal in size, intact, without narrowing, dilatation or a coarctation. There is a left sided aortic arch. Coronary Arteries The left main coronary artery originates normally from the left coronary sinus. The right coronary artery originates normally from the right coronary sinus. Effusion There is no pericardial or pleural effusion noted. Chambers MM Value(Units) Range Z Score IVSd MM 8.86 mm (6.37 - 11.74) ??-0.1 LVPWd MM 7.94 mm (6.24 - 10.76) ??-0.5 LVEDd dim MM 44 mm (41.10 - 54.73) -1.1 LVEDs dim MM 29.3 mm (24.51 - 37.33) -0.5 EF (Teichholz) MM 62.4 % -?? Chambers 2D Value(Units) Range Z Score LAs dim (AP) 2D 28 mm -?? Tricuspid Valve Value(Units) Range Z Score TR Vmax 1.9 m/s -?? TR peak gradient 14 mm Hg -?? Aorta Value(Units) Range Z Score AV lukas diam 2D 21 mm (16.44 - 22.89) 0.8 Ao root diam 2D 28 mm (21.17 - 31.84) 0.6 Ao STJ diam 22 mm (17.66 - 25.87) 0.1 Asc Ao diam (LAX) 25 mm (18.87 - 28.73) 0.5 All Z scores are estimated This report has been electronically signed by: Juan Oneill MD 04/02/2019 16:18:47 Images reviewed and interpretation verified [facility] Cardiac Ultrasound Laboratory Juan Oneill DO ECHO ORDERABLES * EKG 12 Lead (04/02/2019 2:05 PM EST) Ventricular rate 48 BPM MUSE SYSTEM Atrial Rate 48 BPM MUSE SYSTEM P-R Interval 110 ms MUSE SYSTEM QRS Duration 88 ms MUSE SYSTEM Q-T Interval 424 ms MUSE SYSTEM QTC Calculated (Bezet) 378 ms MUSE SYSTEM Calculated P Channing 41 degrees MUSE SYSTEM Calculated R Channing 57 degrees MUSE SYSTEM Calculated T Channing 48 degrees MUSE SYSTEM INTERPRETATION Marked sinus bradycardia with sinus arrhythmia with short [place] Abnormal ECG No previous ECGs available Confirmed by DO Oneill Zachary C. ([id number]) on 04/10/2019 7:38:03 PM MUSE SYSTEM 04/02/2019 2:05 PM EST 04/10/2019 7:38 PM EST Juan Oneill DO ECG ORDERABLES MUSE SYSTEM documented in this encounter Visit Diagnoses Diagnosis Family history of acute congestive heart failure Family history of other cardiovascular diseases Family history of congenital heart defect Family history of congenital anomalies documented in this encounter Care Teams Survey Research Analyst Relationship Specialty Start Date End Date Rachel Shaver DNP [address] [place] [address] PCP - General Family Medicine 04/02/19 06/04/22 documented as of this encounter
--- OUTSIDE RECORDS SUMMARY | 2024-04-14 21:51 | XMS_ITS | Encounter Summary ---
Author Organization [facility] Address [address] [place] [address] Care Team Providers Care Bakery Associate Name Role Phone Unknown, Provider Primary Care Provider Unava ilable Encounter Details Date Type Department Care Team (Late st Contact Info) Description 04/16/2021 Lab Requisition [facility] Pathology & Laboratory Medicine - [facility] [address] [place] [address] Outr Resulting Lab, Provider Social History Tobacco [...] Procedure Name Priority Date/Time Associated Diagnosis Comments ZZCOVID-19 TEST [facility] PCR Today 04/15/2021 13:14 EST COVID-19 TESTING Routine 04/15/2021 13:1 4 EST documented in this encounter Results * COVID-19 TEST [facility] PCR (04/15/2021 13:14 EST) Swab 04/15/2021 13:1 4 EST 04/16/2021 22:52 EST us Provider Outr Resulting Lab MICROBIOLOGY - GENER AL ORDERABLES Final Result [facility] [address] [place] [address] * COVID-19 TESTING (04/15/2021 13:14 EST) COVID-19 rt-PCR Result Negative Negative 04/17/2021 15:19 EST [facility] Comment: This test has not been FDA cleared or approved. This test has been authorized by FDA under an EUA for use by authorized laboratories. This test has been authorized only for detection of nucleic acid from 2019-nCoV, not for any other viruses or pathogens. This test is only authorized for the duration of the declaration that circumstances exist justifying the authorization of emergency use of in vitro diagnostic tests for detection and/or diagnosis of 2019-nCoV under section 564(b)(1) of Act, 21 U.S.C ?? 360bbb-3(b) (1), unless the authorization is terminated or revoked sooner. Negative results do not preclude 2019-nCoV infection and should not be used as the sole basis for treatment or other patient management decisions. Negative results must be combined with clinical observations, patient history, and epidemiological information. Testing was performed using the jessica SARS-CoV-2 assay ([employer] on the Jessica 6800 System Performing Lab Jessica [address] [facility] 04/17/2021 15:19 EST [facility] Swab 04/15/2021 13:1 4 EST 04/16/2021 22:52 EST us Provider Outr Resulting Lab MICROBIOLOGY - GENER AL ORDERABLES Final Result [facility] [address] [place] [address] documented in this encounter Visit Diagnoses Not on filedocumented in this encounter Care Teams Bakery Associate Relationship Specialty Start Date End Date Unknown, Provider, PCP - General 04/26/21 documented as of this encounter
--- OUTSIDE RECORDS SUMMARY | 2024-04-14 21:51 | XMS_ITS | Encounter Summary ---
[place] [address] Care Team Providers Care Assistant Controller Name Role Phone Jordan Shaver PAULIE Primary Care Provider [phone] Reason for Referral * Consultation (Routine) - Closed Specialty Diagnoses / Procedures Referred By Contac t Referred To Contact Gastroenterology Diagnoses Nausea and vomiting, unspecified vomiting type nausea and vomiting Em Clemente APRN [address] [place] [address] [facility] [address] [address] Referral ID Status Reason Start Date Expiration Date V isits Requested Visits Authorized [id number] Closed Consult, Test & Treat 10/14/2021 10/14/2022 1 1 Encounter Details Date Type Department Care Team (Latest Contact Info) Description 10/14/2021 Transcribe [place] [address] Laura Bonilla Nausea and vomiting, unspecified vomiting type (Primary Dx) Social History Tobacco Use Types Packs/Day Years [...] Priority Associated Diagnoses Order Schedule Referral to Gastroenterology Outpatient Referral Routine Nausea And Vomiting, Unspecified Vomiting Type Ordered: 10/14/2021 documented as of this encounter Visit Diagnoses Diagnosis Nausea and vomiting, unspecified vomiting type- Primary documented in this encounter Care Teams Assistant Controller Relationship Specialty Start Date End Date Jordan Shaver DNP [address] [place] [address] PCP - General Family Medicine 04/02/19 06/04/22 documented as of this encounter
--- OUTSIDE RECORDS SUMMARY | 2024-04-14 21:51 | XMS_ITS | Encounter Summary ---
Author Organization Formerly [facility] Address [facility] [place] [address] Care Team Providers Care Pie Bottomer Name Role Phone Jordan Shaver PAULIE Primary Care Provider Encounter Details Date Type Department Care Team (Latest Contact Info) Description 05/08/2022 10:41 AM EST - 05/08/2022 1:24 PM EST Hospital Encounter [place] [address] Mikel Walton MD [facility] [place] [address] Discharge Disposition: Home Social History Tobacco Use [...] Sign Reading Time Taken Comments Blood Pressure 107/75 05/08/2022 1:10 PM EST Pulse 76 05/08/2022 10:58 AM EST Temperature - - Respiratory Rate - - Oxygen Saturation 99% 05/08/2022 1:10 PM EST Inhaled Oxygen Concentration - - Weight - - Height - - Body Mass Index - - documented in this encounter Discharge Instructions * Attachments The following attachments cannot be sent through Care Everywhere. * Colon Polyps (Trinidadian) documented in this encounter Medications at Time [...] Routine 05/08/2022 12:32 PM EST Colonoscopy, Biopsy ([id number]) 05/08/2022 12:10 PM EST Diarrhea, unspecified type Chronic abdominal pain COLONOSCOPY Routine 05/08/2022 12:00 PM EST documented in this encounter Results * Surgical Pathology Report (05/08/2022 12:32 PM EST) Final Diagnosis [id number] ? Location: 4T; EA11; A The signing pathologist has (i) examined the relevant preparation(s) for the specimen(s) and (ii) rendered or confirmed the diagnosis(es). . ?Surgical Pathology DIAGNOSIS A - Random colon r/o ?? inflammation, biopsy (Multiple): - ??Colonic mucosa, negative for diagnostic abnormality. CR-PX Electronically signed by: ?Gagandeep Davies MD Verified: ??05/16/2022 16:36 ??Pathologist Performed at: ??-[facility] Dept. of Pathology, [place] [address] Tester Vibrator Equipment: Stacy Reed MD, FCAP, ??CLIA Certificate: [id number] SPECIMEN(S) SUBMITTED A - Random colon r/o ?? inflammation, biopsy (Multiple) CLINICAL INFORMATION Colonoscopy for loose stools SPECIMEN PROCESSING A - Labeled/Fixativ e: Random colon, rule out inflammation, formalin. Quantity/Size: Multiple, averaging 0.5 cm. Tissue Description: Soft, pink tissues. Sections/Proces sing: Submitted en toto ??in 2 cassettes labeled A1-A2. ??sns 05/16/2022 4:36 PM EST [facility] GI Biopsy 05/08/2022 12:3 2 PM EST 05/08/2022 12:32 PM EST Mikel Walton MD PATHOLOGY/CYTOLOGY O RDERABLES [facility] [place] [id number] [facility] [place] [address] * Specimen to Pathology (05/08/2022 12:32 PM EST) AP Specimen 05/08/2022 12:3 2 PM EST 05/08/2022 12:32 PM EST Narrative [facility] - 05/08/2022 12:32 PM EST Specimen requisition ordered. ??Separate Pathology report to follow Mikel Walton MD PATHOLOGY/CYTOLOGY O TAMIA [facility] [place] [address] * COLONOSCOPY (05/08/2022 12:00 PM EST) COLONOSCOPY [facility] Endoscopy Procedure Date: 05/08/2022 12:00 PM ? Patient Name: Clare Crook ? Date of : 2000 ? Age: 21 ? Order #: [id number] ? Instrument Name: [id number] ? Procedure: ? Colonoscopy Indications: ? loose stools and abdominal pain ? urgency Providers: ? Mikel Walton MD, Ranjit Veronica ? CAROL Enriquez, Jenniffer Medel MD: ?Em W. Bryn Medicines: ? See the Anesthesia note for [...] preparation was evaluated ? using the BBPS (Gilman Bowel ? Preparation Scale) with scores of: [...] 05/08/2022 12:0 0 PM EST Em Clemente MONOMER PURIFICATION OPERATOR GENERAL SURGICAL ORD ERABLES PROVATION documented in this encounter Visit Diagnoses Not [...] RN) documented in this encounter Care Teams Pie Bottomer Relationship Specialty Start Date End Date Jordan Shaver DNP [address] [place] [address] PCP - General Family Medicine 04/02/19 06/04/22 documented as of this encounter
--- OUTSIDE RECORDS SUMMARY | 2024-04-14 21:51 | XMS_ITS | Encounter Summary ---
[place] [address] Care Team Providers Care Plate Cleaner Name Role Phone Jordan Shaver PAULIE Primary Care Provider Reason for Referral * Diagnostic Test (Routine) - Closed Specialty Diagnoses / Procedures Referred By Contac t Referred To Contact Radiology Diagnoses Diarrhea, unspecified type Chronic abdominal pain Procedures MRI Enterography wwo Contrast Hugo De Oliveira MD [facility] [place] [address] [place] [address] Referral ID Status Reason Start Date Expiration Date V isits Requested Visits Authorized [id number] Closed Specialty Service Requested 04/11/2022 10/10/2023 1 1 * Diagnostic Test (Routine) - Closed Specialty Diagnoses / Procedures Referred By Contac t Referred To Contact Radiology Diagnoses Diarrhea, unspecified type Chronic abdominal pain Procedures NM Gastric Emptying Scan Hugo De Oliveira MD [facility] [place] [address] [facility] [place] [address] Referral ID Status Reason Start Date Expiration Date V isits Requested Visits Authorized [id number] Closed Specialty Service Requested 04/11/2022 10/10/2023 1 1 Reason for Visit * Consultation (Routine) - Closed Specialty Diagnoses / Procedures Referred By Contac t Referred To Contact Gastroenterology Diagnoses Nausea and vomiting, unspecified vomiting type nausea and vomiting Em Clemente, MIGRANT LEADER [address] [place] [address] [facility] [place] [address] Referral ID Status Reason Start Date Expiration Date V isits Requested Visits Authorized [id number] Closed Consult, Test & Treat 10/14/2021 10/14/2022 1 1 Encounter Details Date Type Department Care Team (Late st Contact Info) Description 04/11/2022 4:00 PM EST Office [place] [address] Hugo De Oliveira MD [facility] [place] [address] Diarrhea, unspecified type; Chronic abdominal pain Social [...] Sign Reading Time Taken Comments Blood Pressure 111/68 04/11/2022 4:01 PM EST Pulse 85 04/11/2022 4:01 PM EST Temperature - - Respiratory Rate - - Oxygen Saturation - - Inhaled Oxygen Concentration - - Weight 64.7 kg (142 lb 9.6 oz) 04/11/2022 4:01 P M EST Height 151.1 cm (4' 11.5) 04/11/2022 4:01 PM ES T Body Mass Index 28.32 04/11/2022 4:01 PM EST documented in this encounter Patient Instructions * Patient Instructions* Hugo De Oliveira MD - 04/11/2022 4:00 PM EST Functional Bowel Disorders: Information Handout for Patients and Primary Care Providers Hugo De Oliveira MD, [facility] + Raheel Mills MD, EVER Aldo Ward, MIGRANT LEADER + Chantelle Alonzo, MIGRANT LEADER + Rosalie Pinzon, MIGRANT LEADER + RICK García, CAROL + CAROL Lemus, PhD [facility] What are functional bowel disorders? These are the most common type of gastrointestinal disorders in the [facility] The most common functional bowel [...] what is the impact? 15-20% of general [place] population has IBS or FD or both IBS is the 2nd most common cause for lost work days (after common cold) in [place] IBS is estimated to cost the [place] economy 30 billion dollars per year These [...] with immediate onset of symptoms after infection); senior living symptoms are expected in most patients however [...] - this approach benefits most patients OTC (bzzs-fxb-rbafxtq) medications can be used for ongoing bothersome symptoms as listed below Your doctor (PCP or [facility] Gastroenterology provider or Gastroenterology provider) may decide [...] include All-Bran psyllium buds, Metamucil, bulk psyllium ([employer] food stores and bulk stores) Specifically we [...] but convincing medical evidence is still lacking Vjva-rqq-sotoyxs supplements are not typically evaluated by FDA [...] on IBS Headspace (anxiety/stress/mindfulness) Calm (anxiety/stress/mindfulness) CBT-I assistant women's basketball coach (insomnia/sleep problems) Curable (chronic pain) There [...] - you may find a provider at [facility] Medications for Functional Gut Disorders Diarrhea Loperamide [...] a stool softener that is safe for senior living usage (no risk of dependency) andthe dosage [...] under the supervision of a Gastroenterology provider ([facility] or ) or Primary Care Provider Authors are not liable for misuse/misinterpretation of this information Patient Resources [place] [employer] https://www.gastro.org/practice-guidance/ck-npbtehb-dpifzx/ topic/pcjhnnzjx-dzkdc-fljujjux-ibs Badgut.org https://badgut.org/information-centre/v-c-gskxssydg-topics/ibs/ AboutIBS.org https://www.aboutibs.org/ Uptodate.com https://www.Locappytodate.com/contents/wekatsqmk-jjdeu-berldwvg-pxjafx-cyw-zjqwec documented in this encounter Progress Notes * Hugo De Oliveira MD - 04/11/2022 4:00 PM EST Chief Complaint: Clare Crook is a 21 y.o. patient referred for consultation by Dr. Clemente for chronic dyspepsia. Referred for second opinion. Followed by Em Clemente APRN in [place] History of Present Illness: 21 y.o. female with with chronic dyspepsia. One year history of chronic dyspepsia symptoms. Sudden onset coincided with timing COVID vaccination March 2021. Sudden onset of N/V/diarrhea. No sick contacts. No antibiotics. Ongoing symptoms since then. She describes early satiety, post-prandial bloating,and upper abdominal burning pain. Occasional nausea with pain episodes. No vomiting. Variable course over time with no recent dramatic worsening. Worse with certain foods. Chronically altered bowel movements -historically predominantly diarrhea. Variable course over timewith no recent dramatic worsening. Currently 1-2 bowel movements per day. Often triggered by meals and post-prandial urgency. Associated generalized lower abdominal discomfort and bloating. No blood in stools or melena. No dysphagia. Only occasional heartburn or regurgitation. Appetite poor and weight down initially 15 lbs but back to near baseline now. Admits to hypocaloricdiet. No EIM or perianal disease of IBD. No FHx of IBD. Occasional NSAIDs. No cannabis usage. Blood work including CMP, celiac screen, lipase and ESR normal HIDA scan, ultrasound and CT scan at outside hospital normal as per referral EGD May 09, 2021 at outside hospital normal as per referral with negative testing for H. Pylori. Current Regimen: Sertraline 25 mg nightly Cyproheptadine 4 mg once a day Past Therapies: Omeprazole - diarrhea Review of systems: 14-system ROS reviewed and negative except as above Medications: Outpatient Medications Prior to Visit Medication Sig Dispense Refill ??? PROAIR HFA 90 mcg/actuation HFA Aerosol Inhaler INHALE 2 PUFFS BY MOUTH BEFORE EXERCISE NEEDED ??? montelukast (SINGULAIR) 10 mg Tablet TK 1 T PO QD No facility-administered medications prior to visit. Allergies: is allergic to compazine [prochlorperazine] and omeprazole magnesium. Past Medical History: has a past medical history of Asthma, Headache, and Migraines. Past Surgical History: has no past surgical history on file. Family History: family history includes No Known Problems in her father and mother. denies family history of colon cancer, IBD, or celiac disease in mother father or other family members. Social History: reports that she is a non-smoker but has been exposed to tobacco smoke. She has never used smokeless tobacco. She reports that she does not drink alcohol and does not use drugs. 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 Physical Exam: VITAL SIGNS: BP 111/68 (BP Location (NBP): Right arm, Patient Position: Sitting, BP Cuff Sizes: Adult (25-34 cm)) Pulse 85 Ht 151.1 cm (4' 11.5) Wt 64.7 kg (142 lb 9.6 oz) BMI 28.32 kg/m?? BMI: Body mass index is 28.32 kg/m??. Gen: nad, normal body habitus Eyes: no scleral icterus CV: rrr, no m/r/g, radial pulse 2+, no pedal edema Pulm: ctab, normal respiratory effort GI: soft without masses, nontender, nondistended, normoactive bowel sounds, no hernias Skin: warm, dry, no rashes, no induration Neurologic: intact to light touch Psych: appropriate affect, a+ox3 Questionnaire: No flowsheet data found. Laboratory studies, imaging, and procedures (my review of prior records): See above Assessment/Plan: Ms. Crook is a [...] for functional disorders Consider referral to dietitian I will arrange a follow-up appointment after the above investigations to review the results and consolidate the diagnosis. Please note that generally specific treatment recommendations will not be discussed at that time. An additional follow-up appointment with a motility L[employer] SCHO[employer] SPANISH TEACHER will be scheduled afterthis appointment to discuss specific recommendations for management. Patients should continue to work on general measures provided in our handout while awaiting this appointment. We also discussed the consultative nature of the [facility] GI motility program. The patient should continue to work with their PCP +/- local GI as the primary point(s) of contact for urgent issues, medication refills and adjustments as needed for continuity of care purposes in between visits to ourcenter based on the recommendations above. Recommend PCP to refer to local GI if patient does not have a local GI currently. Yearly or bi-yearly visits with a member of the motility team may be available for co-management purposes depending upon the specific circumstances of the patient's medical condition. RTC with me in after testing completed Hugo De Oliveira MD [facility] [place] [address] documented in this encounter Plan of Treatment Scheduled Orders Name Type Priority Associated Diagnoses Orde r Schedule ENDOSCOPY CASE REQUEST: COLONOSCOPY, DIAGNOSTIC Procedures Routine Diarrhea, unspecified type Chronic abdominal pain Ordered: 04/11/2022 Scheduled Procedures Name Priority Associated Diagnoses Date/Ti al EGD, UPPER GI ENDOSCOPY (WRV U 2.09) Nausea and vomiting, unspecified vomiting type Functional dyspepsia Abdominal bloating documented as of this encounter Results * Tissue transglutaminase, IgA (06/05/2022 2:32 PM EDT) TTG IgA Ab 0.4 <=10.0 u/ml [facility] Comment: Negative: ??<7 units/mL Indeterminate: 7-10 units/mL Positive: ??>10 units/mL Blood 06/05/2022 2:32 PM EDT 06/06/2022 7:06 AM EDT Narrative Resulting Agency Comment Spec In Lab Hugo De Oliveira MD IMMUNOLOGY ORDERABLE S Performing Organization Address City/[facility]/ZIP Co de Phone Number [facility] [place] [address] * IgG (06/05/2022 2:32 PM EDT) Immunoglobulin G 1,287 700 - 1,600 mg/dL [facility] Comment: Pediatric Reference Intervals obtained from the Caliper Reference Interval project. http://www.Sova.ca/caliperproject/index.html Blood 06/05/2022 2:32 PM EDT 06/05/2022 2:40 PM EDT Narrative Resulting Agency Comment Spec In Lab Hugo De Oliveira MD CHEMISTRY ORDERABLES Performing Organization Address [facility] Co de Phone Number [facility] [place] [address] * IgA (06/05/2022 2:32 PM EDT) IgA 190 61 - 348 mg/dL [facility] Blood 06/05/2022 2:32 PM EDT 06/05/2022 2:40 PM EDT Narrative Resulting Agency Comment Spec In Lab Hugo De Oliveira MD CHEMISTRY ORDERABLES Performing Organization Address [facility] Co de Phone Number [facility] [place] [address] * TSH Harney (06/05/2022 2:32 PM EDT) Thyroid Stimulating Hormone 1.49 0.27 - 4.20 mcIU/mL [facility] Comment: Reference Interval (mcIU/mL): Females: ??First Trimester: 0.23-3.88 ??Second Trimester: 0.22-3.90 ??Third Trimester: 0.44-4.66 Blood 06/05/2022 2:32 PM EDT 06/05/2022 2:40 PM EDT Narrative Resulting Agency Comment Spec In Lab Hugo De Oliveira MD [place] [address] * NM Gastric Emptying Scan (06/05/2022 1:32 [...] who have questions please contact the health career development counselor that requested your imaging first. ? Electronically signed by: Perfecto Rudolph MD, [facility] ([phone]), at 06/05/2022 3:31 PM Narrative 06/05/2022 3:31 [...] patients who have questions please contactthe health career development counselor that requested your imaging first. Electronically signed by: Perfecto Rudolph MD, [facility]([phone]), at 06/05/2022 3:31 PM [facility] * MRI Enterography wwo Contrast (06/02/2022 6:44 [...] who have questions please contact the health career development counselor that requested your imaging first. ? Narrative 06/04/2022 10:01 AM EDT EXAMINATION: MRI [...] patients who have questions please contactthe health career development counselor that requested your imaging first. Hugo De Oliveira MD IMG MRI ORDERABLES documented in this encounter Visit Diagnoses Diagnosis Diarrhea, unspecified type Chronic abdominal pain Abdominal pain, unspecified site Diarrhea, unspecified type Chronic abdominal pain Abdominal pain, unspecified site Diarrhea, unspecified type Chronic abdominal pain Abdominal pain, unspecified site documented in this encounter Care Teams Plate Cleaner Relationship Specialty Start Date End Date Jordan Shaver DNP [address] [place] [address] PCP - General Family Medicine 04/02/19 06/04/22 documented as of this encounter
--- OUTSIDE RECORDS SUMMARY | 2024-04-14 21:51 | XMS_ITS | Clinical Summary ---
Author Organization [facility] Address [address] [place] [address] Care Team Providers Care Data Warehouse Architect Name Role Phone Unknown, Provider Primary Care Provider Unava ilable Social History Tobacco Use Types Packs/Day Years Used Date Smoking Tobacco: Never Assessed Comments Unknown Sex and Gender Information Value Date Recorded Sex Assigned at Not on file Legal Sex Female 9:48 EST Gender Identity Not on file Sexual Orientation Not on file Plan of Treatment Health Maintenance Due Date Last Done Comments Hepatitis B Vaccine (1 of 3 - 19+ 3-dose series) 11/25 COVID-19 Vaccine ( season) 2023 Hepatitis C Screen Completed 01/10/2023 Procedures Procedure Name Priority Date/Time Associated Diagnosis Comments HEPATITIS C AB W REFLEX TO HCV RNA BY PCR Routine 01/10/2023 13:51 EDT from Last 3 Months or Most Recently Relevant to Health Maintenance Results * HEPATITIS C AB W REFLEX TO HCV RNA BY PCR (01/10/2023 13:51 EDT) Hep C Antibody Negative Negative 01/11/2023 12:13 EDT [facility] Blood VENOUS BLOOD / Unknown 01/10/2023 13:51 EDT 01/10/2023 21:53 EDT us Provider Outr Resulting Lab CHEMISTRY & BLOOD GA S ORDERABLES Final Result [facility] [address] [place] [address] from Last 3 Months or Most Recently Relevant to Health Maintenance Insurance MEDICAID ACO [place] Care Teams Data Warehouse Architect Relationship Specialty Start Date End Date Unknown, Provider, PCP - General 04/26/21
--- OUTSIDE RECORDS SUMMARY | 2024-04-14 21:51 | XMS_ITS | Referral Summary ---
Author Organization [facility] Address [address] [place] [id number] Care Team Providers Care Retail Store Associate Name Role Phone Unknown, Provider Primary Care Provider Unava ilable Social History Tobacco Use Types Packs/Day Years Used Date Smoking Tobacco: Never Assessed Comments Unknown Sex and Gender Information Value Date Recorded Sex Assigned at Not on file Legal Sex Female 9:48 EST Gender Identity Not on file Sexual Orientation Not on file Plan of Treatment Not on file Procedures Procedure Name Priority Date/Time Associated Diagnosis Comments HEPATITIS C AB W REFLEX TO HCV RNA BY PCR Routine 01/10/2023 13:51 EDT from Last 3 Months or Most Recently Relevant to Health Maintenance Results * HEPATITIS C AB W REFLEX TO HCV RNA BY PCR (01/10/2023 13:51 EDT) Hep C Antibody Negative Negative 01/11/2023 12:13 EDT [facility] Blood VENOUS BLOOD / Unknown 01/10/2023 13:51 EDT 01/10/2023 21:53 EDT us Provider Outr Resulting Lab CHEMISTRY & BLOOD GA S ORDERABLES Final Result [facility] [address] [place] [address] from Last 3 Months or Most Recently Relevant to Health Maintenance Insurance MEDICAID ACO [place] Care Teams Retail Store Associate Relationship Specialty Start Date End Date Unknown, Provider, PCP - General 04/26/21
--- OUTSIDE RECORDS SUMMARY | 2024-04-14 21:51 | XMS_ITS | Encounter Summary ---
Author Organization [facility] Address [address] [place] [address] Care Team Providers Care Oil Well Services Supervisor Name Role Phone Unknown, Provider Primary Care Provider Unava ilable Encounter Details Date Type Department Care Team (Late st Contact Info) Description 05/09/2021 Lab Requisition [facility] Pathology & Laboratory Medicine - [facility] [address] [place] [address] Hamzah Manley MD [address] [place] [address] [address] [place], [place] [id number] Encounter for other general examination Social History Tobacco Use Types Packs/Day Years [...] Priority Date/Time Associated Diagnosis Comments SURGICAL PATHOLOGY Today 05/09/2021 12 :18 EST Encounter for other general examination documented in this encounter Results * SURGICAL PATHOLOGY (05/09/2021 12:18 EST) Note to Patient The following pathology results have been interpreted by your pathologist and may be available to you before your health provider has had the opportunity to review them. Please allow time for your provider to receive these results and explore management options, if applicable. 05/10/2021 15:01 [facility] Final Diagnosis A. STOMACH, ANTRUM, BIOPSY: - Gastric fundic mucosa with no significant diagnostic abnormalities. - Negative for Helicobacter pylori on H&E stained sections. B. GASTROESOPHAGEAL JUNCTION, BIOPSY: - Squamocolumnar mucosa with mild reactive changes. - Negative for intestinal metaplasia and dysplasia. 05/10/2021 15:01 [facility] Attestation By the signature below, the attending physician certifies that they have 1) personally conducted a gross and/or microscopic examination of the described specimen(s), and/or personally interpreted the results of laboratory testing of the described specimen(s), and 2) personally rendered or confirmed the above diagnosis. 05/10/2021 15:01 [facility] at 1501 Clinical History Abdominal pain, nausea 05/10/2021 15:01 [facility] Gross Description A. Received in formalin labelled with proper patient identification (initials S, J) and 1. Bx gastric antrum is a webster-brown tissue (0.7 x 0.3 x 0.1 cm). Entirely submitted in A1. B. Received in formalin labelled with proper patient identification (initials S, J) and 2. Bx GE junction are two white-webster tissues (0.3 x 0.2 x 0.1 cm and 0.5 x 0.2 x 0.1 cm). Entirely submitted in B1. RICK BOYCE(ASCP) 05/10/2021 7:30 05/10/2021 15:01 [facility] Performing Lab [facility] 15:01 [facility] Scanned Images 05/10/2021 15:01 [facility] Tissue ENTIRE ESOPHAGUS / Unknown 05/09/2021 12:18 EST 05/09/2021 16:50 EST Tissue specimen (specimen) ESOPHAGEAL STRUCTURE / Unknown 05/09/2021 12:18 EST 05/09/2021 16:50 EST us Hamzha Manley MD PATHOLOGY ORDERABLES Fin al Result [facility] [address] [place] [address] documented in this encounter Visit Diagnoses Diagnosis Encounter for other general examination documented in this encounter Care Teams [employer] Supervisor Relationship Specialty Start Date End Date Unknown, Provider, PCP - General 04/26/21 documented as of this encounter
--- OUTSIDE RECORDS SUMMARY | 2024-04-14 21:51 | XMS_ITS | Encounter Summary ---
Author Organization [facility] Address [address] [place] [address] Care Team Providers Care Waste Minimization Technician Name Role Phone Unknown, Provider Primary Care Provider Unaaddison ilable Encounter Details Date Type Department Care Team (Late st Contact Info) Description 01/10/2023 Lab Requisition [facility] Pathology & Laboratory Medicine - [facility] [address], [place] [address] Outr Resulting Lab, Provider Social History Tobacco [...] Procedure Name Priority Date/Time Associated Diagnosis Comments HIV 1/2 ANTIGEN AND ANTIBODY, 4TH GENERATION Routine 01/10/2023 13:51 EDT documented in this encounter Results * HIV 1/2 ANTIGEN AND ANTIBODY, 4TH GENERATION (01/10/2023 13:51 EDT) HIV 1 and 2 Antibody/p24 Antigen, 4th Generation Negative Negative 01/11/2023 12:06 EDT [facility] Comment:If acute HIV-1 infec tion is suspected in a high risk patient, submit plasma specimen for HIV-1 RNA quantitation test. Blood VENOUS BLOOD / Unknown 01/10/2023 13:51 EDT 01/10/2023 21:53 EDT Narrative [facility] - 01/11/2023 12:06 EDT Fourth Generation assay performed on the Siemens 46elksaur XPT. us Provider Outr Resulting Lab IMMUNOLOGY AND SEROL OGY ORDERABLES Final Result Performing Organization Address [facility]/State/ZIP Co de Phone Number [facility] [address] [place] [address] documented in this encounter Visit Diagnoses Not on filedocumented in this encounter Care Teams Waste Minimization Technician Relationship Specialty Start Date End Date Unknown, Provider, PCP - General 04/26/21 documented as of this encounter
[2024-04-14 21:58] LABS: Bilirubin Negative (Negative); Blood Negative (Negative); Clarity Clear (Clear); Glucose Negative (Negative); Ketones Negative (Negative); Leukocyte Esterase Negative (Negative); Nitrite Negative (Negative); Urobilinogen 0.2 mg/dL (Up to 0.2)
[2024-04-14 22:01] LABS: Abs Immature Grans 0.02 10^3/uL (0.0-0.06); Absolute Basophil Count 0.05 10^3/uL (0.0-0.2); Absolute Eosinophil Count 0.11 10^3/uL (0.0-0.7); Absolute Lymphocyte Count 3.44 10^3/uL (1.2-3.4); Absolute Monocyte Count 0.44 10^3/uL (0.1-0.8); Absolute Neutrophil Count 4.81 10^3/uL (1.2-6.7); Basophils % 0.6 %; Eosinophils % 1.2 %; HGB 14.3 g/dL (11.2-15.7); Immature Grans % 0.2 %; Lymphocytes % 38.8 %; MCH 29.2 pg (27.0-33.0); MCV 86 fL (80-95); MPV 9.1 fL (8.0-11.0); Neutrophils % 54.2 %; Platelet Count 318 10^3/uL (130-400); RBC 4.89 10^6/uL (3.93-5.22); RDW 11.7 % (11.7-14.6); RDW-SD 36.8 fL; WBC 8.87 10^3/uL (4.4-10.8)
[2024-04-14] MEDS: Metoclopramide 10 MG/2 ML VIAL IVP (22:02)
[2024-04-14] MEDS: Famotidine 20 MG/2 ML VIAL IVP (22:02)
[2024-04-14] MEDS: ACETAMINOPHEN 1,000 MG/100 ML BAG 400 MG IVPB (22:04)
[2024-04-14] MEDS: Normal Saline 500 ML IV (22:04)
[2024-04-14 22:17] LABS: ALT 28 U/L (14-59); AST 18 U/L (15-37); Albumin 3.6 g/dL (3.4-5.0); Alkaline Phosphatase 83 U/L (46-116); Anion Gap 5.3 mmol/L (3-11); BUN 12 mg/dL (7-18); Bilirubin, Total 0.19 mg/dL (0.2-1.0); CO2 30.7 mmol/L (21.0-32.0); CREATININE 0.8 mg/dL (0.55-1.02); Chloride 104 mmol/L (98-107); Estimated GFR 107.44 (mL/min/1.73m2); Glucose 96 mg/dL (74-106); Lipase 40 U/L (<78); Potassium 4.1 mmol/L (3.5-5.1); Sodium 140 mmol/L (136-145); Total Protein 8.2 g/dL (6.4-8.2)
[2024-04-14 22:22] LABS: Calcium 9.4 mg/dL (8.5-10.1)
--- NOTE | 2024-04-14 22:42 | W.ED.GENAD ---
Discharge Plan Disposition Patient Disposition: Home Condition: Stable Discharge Details Clinical Impression: Abdominal pain, RUQ Primary Care Provider: JOSE ALEJANDRO MARIE ED Provider: Kim Royal Home Meds and New Rx's Prescriptions: New ondansetron 4 mg tablet,disintegrating 4 mg PO Q8H PRN5 Days Qty: 10 0RF Continued albuterol sulfate 1.25 mg/3 mL Solution For Nebulization 1.25 mg continuous nebulization PRN PRN albuterol sulfate [Ventolin HFA] 60 PUFF HFA aerosol inhaler 2 puff Inhalation PRN PRN ibuprofen 600 mg tablet 600 mg PO TID Qty: 15 0RF Discharge Instructions Instructions: Abdominal Pain, Adult ED Additional Instructions: Take Zofran as needed for nausea and vomiting If you do not have a bowel movement daily recommend taking Metamucil more frequently Please follow-up for ultrasound tomorrow You may take Motrin and Tylenol as needed for pain and return earlier should you have fever, chills, or any new or worsening complaints Referrals: JOSE ALEJANDRO MARIE, ELECTRICAL APPLIANCE REPAIRER [Primary Care Provider] - 1 week Discharge Data Discharge Date/Time-TO BE ENTERED AT DEPARTURE: 04/14/24 22:58 HPI General Date/Time Provider Initiated Documentation: 04/14/24 21:33. HPI Narrative: This 23-year-old female presents with report of right upper quadrant abdominal pain started proximately 2 hours prior to arrival. History of similar symptoms but denies longevity of symptoms in the past or severity of pain. Denies any chance of , fever chills, nausea or vomiting. Has had numerous studies that have been negative in the outpatient setting per patient. Denies any new medications. Has not taken any medications prior to arrival. Related Data Home Medications ?Medication ?Instructions ?Recorded ?Confirmed albuterol sulfate 90 mcg/actuation 2 puff inhalation PRN PRN 07/05/16 04/15/24 aerosol inhaler (Ventolin HFA) albuterol sulfate 1.25 mg/3 mL 1.25 mg continuous nebulization 01/15/21 04/15/24 solution for nebulization PRN PRN ibuprofen 600 mg tablet 600 mg PO TID #15 tabs 09/10/23 04/15/24 ondansetron 4 mg disintegrating 4 mg PO Q8H PRN 5 days #10 tabs 04/14/24 04/15/24 tablet Previous Rx's ?Medication ?Instructions ?Recorded ibuprofen 600 mg tablet 600 mg PO TID #15 tabs 09/10/23 ondansetron 4 mg disintegrating 4 mg PO Q8H PRN 5 days #10 tabs 04/14/24 tablet Allergies Allergy/AdvReac Type Severity Reaction Status Date / Time omeprazole AdvReac Intermediate Skin Rash Verified 04/15/24 13:20 and diarrhea ketorolac AdvReac anxious Verified 04/15/24 13:20 promethazine AdvReac panic Verified 04/15/24 13:20 enviromental Allergy Mild Other (See Uncoded 04/15/24 13:20 Comment) General Stated Complaint: Abd Prob MARY JANE: 3 Exam Narrative Exam Narrative: Alert and oriented 31-year-old female no acute distress, right upper quadrant tenderness appreciated on exam, no right lower quadrant pain or rebound or guarding. Pupils equal round reactive to light and accommodation, no scleral icterus, no CVA tenderness, distal pulses intact, alert and oriented x 4 Course Vital Signs Vital signs: Vital Signs Temperature 36.5 C 04/14/24 21:27 Pulse 95 H 04/14/24 21:27 Respiratory Rate 18 04/14/24 21:27 Blood Pressure 132/94 H 04/14/24 21:27 Pulse Oximetry 98 04/14/24 21:27 Temperature 36.5 C 04/14/24 21:27 Temperature Source Tympanic 04/14/24 21:27 Pulse 95 H 04/14/24 21:27 Respiratory Rate 18 04/14/24 21:27 Blood Pressure 132/94 H 04/14/24 21:27 Blood Pressure Position Sitting 04/14/24 21:27 Pulse Oximetry 98 04/14/24 21:27 Oxygen Delivery Method Room Air 04/14/24 21:27 Oxygen Flow Rate 0 04/14/24 21:27 Pain Level 9 04/14/24 22:02 Lab/Test Results Lab/Test Results: Laboratory Tests Range/Units 04/14/24 04/14/24 04/14/24 21:45 21:55 21:57 WBC (4.4-10.8) 10^3/uL 8.87 RBC (3.93-5.22) 10^6/uL 4.89 Hgb (11.2-15.7) g/dL 14.3 Hct (36.0-46.0) % 42.0 MCV (80-95) fL 86 MCH (27.0-33.0) pg 29.2 MCHC (32.0-36.0) % 34.0 RDW (11.7-14.6) % 11.7 Plt Count (130-400) 10^3/uL 318 MPV (8.0-11.0) fL 9.1 Immature Gran % % 0.2 Neutrophils % % 54.2 Lymphocytes % % 38.8 Monocytes % % 5.0 Eosinophils % % 1.2 Basophils % % 0.6 Nucleated RBC % (0.0-0.3) % 0.0 Absolute Neutrophils (1.2-6.7) 10^3/uL 4.81 Absolute Lymphocytes (1.2-3.4) 10^3/uL 3.44 H Absolute Monocytes (0.1-0.8) 10^3/uL 0.44 Absolute Eosinophils (0.0-0.7) 10^3/uL 0.11 Absolute Basophils (0.0-0.2) 10^3/uL 0.05 Sodium (136-145) mmol/L 140 Potassium (3.5-5.1) mmol/L 4.1 Chloride (98-107) mmol/L 104 Carbon Dioxide (21.0-32.0) mmol/L 30.7 Anion Gap (3-11) mmol/L 5.3 BUN (7-18) mg/dL 12 Creatinine (0.55-1.02) mg/dL 0.8 Est GFR (CKD-EPI 2020) (mL/min/1.73m2) 107.44 Glucose (74-106) mg/dL 96 Calcium (8.5-10.1) mg/dL 9.4 Total Bilirubin (0.2-1.0) mg/dL 0.19 L AST (15-37) U/L 18 ALT (14-59) U/L 28 Alkaline Phosphatase (46-116) U/L 83 Total Protein (6.4-8.2) g/dL 8.2 Albumin (3.4-5.0) g/dL 3.6 Lipase (<78) U/L 40 Urine Color (Yellow) Yellow Cancelled Urine Clarity (Clear) Clear Cancelled Urine pH (5-8) 7.0 Cancelled Ur Specific Lititz (1.005-1.025) 1.020 Cancelled Urine Protein (Negative) mg/dL Negative Cancelled Urine Ketones (Negative) mg/dL Negative Cancelled Urine Blood (Negative) Negative Cancelled Urine Nitrite (Negative) Negative Cancelled Urine Bilirubin (Negative) Negative Cancelled Urine Urobilinogen (Up to 0.2) mg/dL 0.2 Cancelled Ur Leukocyte Esterase (Negative) Negative Cancelled Urine Glucose (Negative) mg/dL Negative Cancelled POC Urine Test Start: 04/14/24 21:48 Freq: Status: Complete Protocol: Document 04/14/24 21:51 LIANG (Rec: 04/14/24 21:51 LIANG [id number]) Test(Urine)-POC POC- Test(urine) Negative POC- Test(urine) Negative Medical Decision Making 31-year-old female presenting in acute distress, right upper abdomen tenderness on exam. Given IV Tylenol and antiemetics, Reglan. Patient has had extensive imaging in the emergency department and I think the risk of more radiation at this point outweighs any benefit. I reviewed patient's EGD, CT scan, and prior chest abdomen and pelvis findings. Approximately 10 minutes including all of her prior documentation in the emergency department and also compared to prior labs which are reassuring in nature. She is not on today's visit her POC past she is feeling improved after Compazine and Tylenol administration, however she did have dystonic reaction from the antiemetic and is therefore given 25 mg of IV Benadryl. She reports improvement in symptoms at this time. Return precautions reviewed and patient expressed understanding. Quality:SDOH Health Related Social Needs: No Data to Display PFSH All Active Problems (Updated 04/15/24 @ 13:42 by Mercedez Griffiths MD) Abdominal pain, RUQ (Acute) Strain of left biceps (Acute) Insomnia (Acute) Medical History Migraine headache without aura Asthma Anxiety Surgical History H/O esophagogastroduodenoscopy Family History Mother Heart disease Stroke Social History Smoking/Tobacco Use Status: Never Smoking risk assessment performed?: Yes Alcohol Intake: never Drug use: Never Substance use type: does not use Household members: family Housing: apartment Number of Children: 0 Education Level: high school 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
[2024-04-14 22:49] VITALS: BP 146/99; PULSE 80; RESP 18; O2SAT 100
[2024-04-14] MEDS: diphenhydrAMINE 50 MG/ML VIAL 25 MG IVP (22:51)
== END 2024-04-14 22:58 | disposition home or self-care (01) ==
PROVIDERS: Emergency Provider Physician Assistant; PCP Nurse Practitioner Family
DX: R10.11 Right upper quadrant pain (principal)
CPT/HCPCS: 36415; 80053; 81025; 83690; 96365; 96375; 99284; 81003; 85025; J0131; J1200; J2765

== ENCOUNTER 2024-04-15 13:09 | Emergency (ER) | payer MEDICAID, SELFPAY ==
[2024-04-15 13:18] VITALS: BP 126/80; PULSE 80; RESP 18; TEMP 36.6; O2SAT 98
--- NOTE | 2024-04-15 13:41 | ED.GENADUL_ITS ---
Discharge Plan Disposition Patient Disposition: Home Condition: Stable Discharge Details Clinical Impression: Abdominal pain, RUQ Primary Care Provider: JOSE ALEJANDRO MARIE ED Provider: Mercedez Griffiths Home Meds and New Rx's Prescriptions: No Action albuterol sulfate 1.25 mg/3 mL Solution For Nebulization 1.25 mg continuous nebulization PRN PRN albuterol sulfate [Ventolin HFA] 60 PUFF HFA aerosol inhaler 2 puff Inhalation PRN PRN ibuprofen 600 mg tablet 600 mg PO TID Qty: 15 0RF ondansetron 4 mg tablet,disintegrating 4 mg PO Q8H PRN5 Days Qty: 10 0RF Discharge Instructions Instructions: Abdominal Pain, Adult ED Additional Instructions: You were seen in the emergency department today to discuss the results of the ultrasound that you had done this morning. In our department a full physical examination performed, and your ultrasound shows no evidence of gallstones, liver abnormality, or other's findings that might explain your pain. The next steps in workup and management are to make an appointment with your primary care provider. Please continue to use Tylenol and ibuprofen to manage your pain, and maintain good hydration and nutrition. Thank you for allowing us to be part of your care. HPI General Mode of arrival: ambulatory . Date/Time Provider Initiated Documentation: 04/15/24 13:10 . Limitations to Documentation: no limitations . Information obtained by: patient and old records reviewed . HPI Narrative: HPI: This is a 23-year-old female patient presenting to obtain the results of an ultrasound performed in the outpatient environment. The patient was seen in our emergency department yesterday for right upper quadrant abdominal pain. She had benign laboratory studies, and has had numerous CT images in the past without significant findings. She was sent for outpatient ultrasound, which was pe rformed this morning. The patient reports that she came to get the results of the ultrasound, states that her symptoms have not changed since her evaluation yesterday. She continues to have pain, which is occasionally diffuse across her abdomen. She has been dealing with abdominal problems for several years, and has followed with gastroenterology at [facility] in the past. Exam: Gen: Awake and alert, in no apparent distress HEENT: Non-icteric sclera Neck: Supple Lungs: No apparent respiratory distress, normal respiratory effort. CV: Appears well perfused, strong distal pulses Abdomen: Non-distended, soft, minimal tenderness to palpation in the right upper quadrant, no rigidity, rebound, guarding MSK: Moves 4 extremities without apparent limitation in ROM Skin: Visualized skin without rashes, cyanosis. Neuro: Normal Gait, no obvious focal deficits or facial asymmetry. Speaks in full, clear sentences. Psych: Appropriate for situation. MDM: This is a 23-year-old female patient presenting for evaluation of abdominal pain. The differential for this examination includes but is not limited to gastritis, pancreatitis, peptic ulcer disease, cholecystitis, hepatitis, appendicitis, diverticulitis, irritable bowel/IBD. Symptoms are less consistent for pathology, she has no lower abdominal tenderness, vaginal complaints, urinary symptoms. Given that the patient had a full workup yesterday, has not had any changes, and came simply for radiology results, I do not see an indication at this time to repeat laboratory studies or perform advanced imaging. I did provide the patien t with a dose of ibuprofen as she has not had any at today. ED Course: The patient's ultrasound results were shared with her, which showed no acute pathology in the right upper quadrant to explain her symptoms. Emphasized the importance of outpatient follow-up for next steps in workup of this condition. At this time, the patient has had a full medical evaluation and is safe for discharge to home. They are hemodynamically stable, ambulatory, and tolerating PO. They are understanding of the follow-up plan and return precautions. They left our facility without incident. Mercedez Griffiths MD Related Data Home Medications ?Medication ?Instructions ?Recorded ?Confirmed albuterol sulfate 90 mcg/actuation 2 puff inhalation PRN PRN 07/05/16 04/15/24 aerosol inhaler (Ventolin HFA) albuterol sulfate 1.25 mg/3 mL 1.25 mg continuous nebulization 01/15/21 04/15/24 solution for nebulization PRN PRN ibuprofen 600 mg tablet 600 mg PO TID #15 tabs 09/10/23 04/15/24 ondansetron 4 mg disintegrating 4 mg PO Q8H PRN 5 days #10 tabs 04/14/24 04/15/24 tablet Previous Rx's ?Medication ?Instructions ?Recorded ibuprofen 600 mg tablet 600 mg PO TID #15 tabs 09/10/23 ondansetron 4 mg disintegrating 4 mg PO Q8H PRN 5 days #10 tabs 04/14/24 tablet Allergies Allergy/AdvReac Type Severity Reaction Status Date / Time omeprazole AdvReac Intermediate Skin Rash Verified 04/15/24 13:20 and diarrhea ketorolac AdvReac anxious Verified 04/15/24 13:20 promethazine AdvReac panic Verified 04/15/24 13:20 enviromental Allergy Mild Other (See Uncoded 04/15/24 13:20 Comment) General Stated Complaint: Recheck MARY JANE: 4 Course Vital Signs Vital signs: Vital Signs Temperature 36.6 C 04/15/24 13:18 Pulse 80 04/15/24 13:18 Respiratory Rate 18 04/15/24 13:18 Blood Pressure 126/80 04/15/24 13:18 Pulse Oximetry 98 04/15/24 13:18 Temperature 36.6 C 04/15/24 13:18 Temperature Source Temporal Artery Scan 04/15/24 13:18 Pulse 80 04/15/24 13:18 Respiratory Rate 18 04/15/24 13:18 Blood Pressure 126/80 04/15/24 13:18 Blood Pressure Position Sitting 04/15/24 13:18 Pulse Oximetry 98 04/15/24 13:18 Oxygen Delivery Method Room Air 04/15/24 13:18 Oxygen Flow Rate 0 04/15/24 13:18 Medical Decision Making Quality:SDOH Health Related Social Needs: No Data to Display PFSH All Active Problems (Updated 04/15/24 @ 13:42 by Mercedez Griffiths MD) Abdominal pain, RUQ (Acute) Strain of left biceps (Acute) Insomnia (Acute) Medical History Migraine headache without aura Asthma Anxiety Surgical History H/O esophagogastroduodenoscopy Family History Mother Heart disease Stroke Social History Smoking/Tobacco Use Status: Never Smoking risk assessment performed?: Yes Alcohol Intake: never Drug use: Never Substance use type: does not use Household members: family Housing: apartment Number of Children: 0 Education Level: high school 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
[2024-04-15] MEDS: Ibuprofen 600 MG TAB PO (13:48)
== END 2024-04-15 13:50 | disposition home or self-care (01) ==
PROVIDERS: Emergency Provider Emergency Medicine; PCP Nurse Practitioner Family
DX: R10.11 Right upper quadrant pain (principal)
CPT/HCPCS: 99284; 99283

== ENCOUNTER 2024-04-15 15:37 | Outpatient (CLI) | payer MEDICAID, SELFPAY ==
--- NOTE | 2024-04-15 | DI.US_ITS ---
Exam(s) US ABDOMEN LIMITED EXAM: US ABDOMEN LIMITED CLINICAL HISTORY: RUQ pain, evaluate TECHNIQUE: Ultrasound abdomen performed using standard protocol. COMPARISON: US US ABDOMEN LIMITED from 04/19/2021 FINDINGS: There is no ascites evident. LIVER: There are no hepatic lesions evident nor dilatation of intrahepatic ducts. GALLBLADDER/BILIARY: There are no gallstones. No gallbladder wall edema nor pericholecystic fluid. The common hepatic duct isnot dilated, measuring 3-4mm at the level of caitlin hepatis. PANCREAS: There is no evidence of pancreatic mass nor dilatation of the pancreatic duct. RIGHT KIDNEY:No evidence of solid mass, calculus, nor hydronephrosis. No cortical cysts evident. IMPRESSION: 1. No evidence of cholelithiasis nor dilatation of the biliary tree. 2. No other significant ultrasound findings in the right upper quadrant. 3. There is no ascites. DATA REPOSITORY:
== END 2024-04-15 15:57 ==
LOC: DI 15:37
PROVIDERS: PCP Nurse Practitioner Family; Visit Provider Physician Assistant
DX: R10.11 Right upper quadrant pain (principal)
CPT/HCPCS: 76705

== ENCOUNTER 2024-04-21 08:38 | Emergency (ER) | payer MEDICAID, SELFPAY ==
[2024-04-21 08:43] VITALS: BP 96/66; PULSE 79; RESP 18; O2SAT 98
--- NOTE | 2024-04-21 09:15 | ED.GENADUL_ITS ---
Discharge Plan Disposition Patient Disposition: Home Condition: Good Discharge Details Clinical Impression: MCL sprain of right knee, Acute knee pain, Back pain, Contusion, Fall Primary Care Provider: JOSE ALEJANDRO MARIE ED Provider: Celina Aparicio Home Meds and New Rx's Prescriptions: Continued albuterol sulfate 1.25 mg/3 mL Solution For Nebulization 1.25 mg continuous nebulization PRN PRN albuterol sulfate [Ventolin HFA] 60 PUFF HFA aerosol inhaler 2 puff Inhalation PRN PRN ibuprofen 600 mg tablet 600 mg PO TID Qty: 15 0RF ondansetron 4 mg tablet,disintegrating 4 mg PO TID PRN Patient Comments: DISSOLVE ONE TABLET ON THE TONGUE EVERY 8 HOURS NEEDED FOR 5 DAYS Discharge Instructions Instructions: Low Back Pain ED, Knee Sprain ED Additional Instructions: As we discussed, your imaging is reassuring here today. No evidence of fracture or dislocation. However, I am concerned about your MCL on your right knee and that you may have developed a sprain. Please continue with the hinged knee brace while pain persists. Ligament sprains typically heal within 6 weeks. Please encourage rest, ice, elevation. Tylenol and or ibuprofen as needed for discomfort. Please take as directed on packaging. Regarding your back, again there is no evidence of fracture. However, will likely develop some bruising contusion. Heat may help and help prevent muscle spasm. Getting up and having frequent walking can also help prevent further discomfort, gentle stretching. Please avoid activities that cause significant increase in discomfort. Please follow-up with primary care in 2 weeks for reevaluation. If you develop any new or worsening symptoms please seek care urgently once again. Stand Alone Forms: Work Release Referrals: JOSE ALEJANDRO MARIE, [employer]ATION [employer]ER [Primary Care Provider] - Discharge Data Discharge Date/Time-TO BE ENTERED AT DEPARTURE: 04/21/24 11:28 HPI General Date/Time Provider Initiated Documentation: 04/21/24 08:39 . Limitations to Documentation: no limitations . Information obtained by: patient, family (mom) and RN notes reviewed . History of Present Illness 23 year old F presents to the emergency department with the chief complaint of back pain, right knee pain, described as severe, Quality is described as stabbing, and is localized to the back, buttocks, right and lower extremity. Patient reports no radiation. Patient started experiencing this minute(s) and it has been constant. Immobilization improves symptom(s), Movement worsens symptoms . Patient notes no other symptoms.. Patient did receive the following treatments prior to arrival, none Related Data Home Medications ?Medication ?Instructions ?Recorded ?Confirmed albuterol sulfate 90 mcg/actuation 2 puff inhalation PRN PRN 07/05/16 04/21/24 aerosol inhaler (Ventolin HFA) albuterol sulfate 1.25 mg/3 mL 1.25 mg continuous nebulization 01/15/21 04/21/24 solution for nebulization PRN PRN ibuprofen 600 mg tablet 600 mg PO TID #15 tabs 09/10/23 04/21/24 ondansetron 4 mg disintegrating 4 mg PO TID PRN 04/21/24 04/21/24 tablet Previous Rx's ?Medication ?Instructions ?Recorded ibuprofen 600 mg tablet 600 mg PO TID #15 tabs 09/10/23 Allergies Allergy/AdvReac Type Severity Reaction Status Date / Time omeprazole AdvReac Intermediate Skin Rash Verified 04/21/24 08:46 and diarrhea ketorolac AdvReac anxious Verified 04/21/24 08:46 promethazine AdvReac panic Verified 04/21/24 08:46 enviromental Allergy Mild Other (See Uncoded 04/21/24 08:46 Comment) General Stated Complaint: Orthopedic MARY JANE: 4 Review of Systems Constitutional Constitutional: Reports as per HPI, Denies fever(s), Denies frequent falls and Denies headache(s) Eyes Eyes: Denies change in vision ENT Ears, Nose, Mouth, and Throat: Denies headache(s) Cardiovascular Cardiovascular: Denies chest pain, Denies dyspnea and Denies dyspnea on exertion Respiratory Respiratory: Denies cough, Denies dyspnea and Denies dyspnea on exertion Gastrointestinal Gastrointestinal: Denies abdominal pain, Denies change in bowel habits and Denies fecal incontinence Genitourinary Genitourinary: Reports as per HPI, Denies urinary incontinence and Denies urinary hesitancy Musculoskeletal Musculoskeletal: Reports as per HPI, Reports back pain, Denies muscle weakness, Denies numbness, Denies radiating pain into limb, Reports stiffness and Denies tingling Integumentary/Breasts Skin/Breast: Reports as per HPI and Denies rash Neurologic Neurologic: Reports as per HPI, Denies frequent falls, Denies headache(s), Denies localized weakness, Denies numbness, Denies radicular pain, Denies sensory deficit, Denies tingling and Denies paresthesias Exam Const General: cooperative, healthy appearing, no acute distress, well developed and well groomed Nutritional Appearance: average body habitus and well nourished Orientation: alert and awake Neck Neck: normal visual inspection and full ROM Resp Effort & Inspection: normal respiratory effort and able to speak in complete sentences Auscultation: clear to auscultation bilaterally, no rales, no rhonchi and no wheezes Cardio Rate: regular rate Rhythm: regular rhythm Heart Sounds: S1 normal and S2 normal Back/Spine/Pelvis Cervical Spine: normal cervical lordosis, cervical ROM normal, No cervical spasm, No cervical spinal tenderness and No step off deformity Thoracic/Lumbar Spine: thoracic and lumbar spine normal to inspection, No mass, No paraspinal tenderness, thoraco-lumbar ROM limited, No thoraco-lumbar spasm, No thoracic spinal tenderness and lumbar spinal tenderness (left side) Pelvis: no pain with anterior-posterior compression and no pain with lateral compression Sacroiliac joints: bilaterally nontender Sacrum: no ecchymosis, no erythema, no swelling and tenderness Coccyx: no swelling and tenderness Skin General skin exam: no rashes or lesions noted Neuro General: patient alert and patient awake Cognition: normal cognition Speech: speech normal Motor: muscle tone normal throughout, strength 5/5 throughout, no movement abnormalities noted and no fasciculations Sensory Exam: no sensory deficits noted (no saddle paresthesias) Extrem General: capillary refill normal, no joint enlargement, no pedal edema and no calf tenderness Knee images: 2 1. Area of maximal discomfort. Patient does have some fairly diffuse pain about the knee. This seems to be the area of maximal pain. She is 2+ distal pulses. Sensation is intact. Good range of motion of the ankle and toes. Able to regan and invert the foot as well as dorsiflex and plantarflex against resistance. No calf pain or pain to palpation in the tibia or the fibula. No pain proximal to the knee. Patient does have discomfort with palpation over the knee. Pain over the MCL with valgus stress testing. Some discomfort with varus stress testing but much less so. No ligamentous laxity with anterior posterior drawer testing. Range of motion is very limited secondary to discomfort. Lacking about 10 degrees from full extension, able to flex to about 45 degrees, limited due to pain. No effusion. 2+ distal pulses. Course Vital Signs Vital signs: Vital Signs Pulse 79 04/21/24 08:43 Respiratory Rate 18 04/21/24 08:43 Blood Pressure 96/66 L 04/21/24 08:43 Pulse Oximetry 98 04/21/24 08:43 Pulse 79 04/21/24 08:43 Respiratory Rate 18 04/21/24 08:43 Blood Pressure 96/66 L 04/21/24 08:43 Blood Pressure Position Sitting 04/21/24 08:43 Pulse Oximetry 98 04/21/24 08:43 Oxygen Delivery Method Room Air 04/21/24 08:43 Oxygen Flow Rate 0 04/21/24 08:43 Lab/Test Results Lab/Test Results: POC- Test(urine) Negative Medical Decision Making Patient is a pleasant 23-year-old female past medical history of migraine, asthma and anxiety, presenting today, brought in by her mom, with chief complaint of right knee and lower back pain. She reports a prior to arrival she slipped on some icy steps outside and twisted her knee and attempt to catch herself. States that she also landed striking her back and has had discomfort since then. She denies any previous injury to the right knee, no previous surgeries. No surgeries to her back. She denies any numbness or tingling. States that she has had trouble with ambulation secondary to pain in the right knee but denies any haroon weakness. POC negative. On exam, patient appears anxious and uncomfortable. Otherwise nontoxic and hemodynamically stable. No respiratory distress. No midline tenderness of the C-spine, T-spine. Pain near the lumbar area seems to be more along the left side not left CVA area, symptoms inferior to this. No abdominal pain. No appreciable step-off or deformity. No palpable spasm. She is also tender over her sacrum and coccyx, this seems to be area of maximum discomfort. Examining her right lower extremity reveals it to be neurovascularly intact. 2+ distal pulses. Good range of motion of her toes and ankle. No pain in the calf. Really diffuse pain in the knee but no objective evidence of trauma. No effusion. She is able to straight leg raise. She has some tenderness with valgus stress testing and palpation over the MCL. He is preferring to have the leg in a slightly flexed position does not extend beyond that. Flexion also very limited secondary to discomfort. Do not appreciate any laxity of the ACL or PCL. LCL has some discomfort but no laxity and this seems to be not as significant as the discomfort over the MCL area. Will give the patient Tylenol, ibuprofen and a Lidoderm patch to help with discomfort. Will obtain imaging of the areas that she struck. Regarding the knee, highest concern is for MCL strain. If x-ray does not suggest other pathology, plan for bracing and follow-up with primary care. Regard to her back, I do not note any saddle paresthesias suggestive of neurologic dysfunction or cauda equina. Will obtain x-ray to evaluate for any potential fracture but more likely, musculoskeletal discomfort that will be treated conservatively. X-rays were obtained showing no fracture or dislocation of the knee. I do not note any clinical evidence to suggest a knee dislocation. Will treat with hinged knee brace. Radiologist reviewed the x-rays of the back as well and recommended CT scan as there is question of abnormality of the sacrum. CT was obtained and this was found to be normal without any fracture or dislocation. No deformity. I discussed these findings with the patient and her mother. We discussed continued treatment. Will have her in a hinged knee brace for the MCL support. Encouraged supportive care. Encouraged rest, ice, elevation. Tylenol and ibuprofen as needed for discomfort. Strict return precautions were discussed. Encourage follow-up with primary care. All of her questions and concerns were addressed and she is agreement with plan. This documentation was generated using [employer] dictation system, please disregard any oddities of phrase or misspellings. Quality:SDOH Health Related Social Needs: 2 No Data to Display PFSH All Active Problems (Updated 04/21/24 @ 10:58 by RICK Ruiz) Fall (Acute) Contusion (Acute) Back pain (Acute) Acute knee pain (Acute) MCL sprain of right knee (Acute) Abdominal pain, RUQ (Acute) Strain of left biceps (Acute) Insomnia (Acute) Medical History Migraine headache without aura Asthma Anxiety Surgical History H/O esophagogastroduodenoscopy Family History Mother Heart disease Stroke Social History Smoking/Tobacco Use Status: Never Smoking risk assessment performed?: Yes Alcohol Intake: never Drug use: Never Substance use type: does not use Household members: family Housing: apartment Number of Children: 0 Education Level: high school 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
[2024-04-21] MEDS: Acetaminophen 500 MG TAB 1000 MG PO (09:58)
[2024-04-21] MEDS: Ibuprofen 600 MG TAB PO (09:58)
[2024-04-21] MEDS: Lidocaine 5% Patch 1 PATCH TP (09:59)
--- NOTE | 2024-04-21 10:05 | DI.RAD_ITS ---
Exam(s) XR SACRUM COCCYX EXAM: XR SACRUM COCCYX CLINICAL HISTORY: fall on stairs. TECHNIQUE: 2D digital imaging was performed. Three images were obtained. COMPARISON: CT CT ABDOMEN PELVIS W from 02/22/2023 CR XR LUMBAR SPINE COMPLETE from 04/21/2024 FINDINGS: BONES: There is a question of offset of the 4th sacral elements suspicious for a fracture. No bony d estructive lesion is seen. JOINTS: No dislocation present. SOFT TISSUE: Normal. IMPRESSION: Question of a mildly displaced fracture involving the 4th sacral element. A CT scan of the sacrum is recommended for further evaluation. DATA REPOSITORY: RADIATION DOSE DELIVERED:
--- NOTE | 2024-04-21 10:06 | DI.RAD_ITS ---
Exam(s) XR LUMBAR SPINE COMPLETE EXAM: XR LUMBAR SPINE COMPLETE CLINICAL HISTORY: fall on stairs. TECHNIQUE: 2D digital imaging was performed of the lumbar spine. Five images were obtained. AP, la teral, right oblique, left oblique and L5-S1 spot views were obtained. COMPARISON: CT CT ABDOMEN PELVIS W from 02/22/2023 FINDINGS: BONES: No fracture or destructive lesion. Vertebral bodies are unremarkable. No facet hypertrophy yunier ntified. DISKS: Intervertebral disc spaces are maintained. ALIGNMENT: Lumbar spinal alignment is within normal limits. No spondylolysis or spondylolisthesis. SOFT TISSUE: Normal. IMPRESSION: Unremarkable radiographs of the lumbar spine. DATA REPOSITORY: RADIATION DOSE DELIVERED:
--- NOTE | 2024-04-21 10:07 | DI.RAD_ITS ---
Exam(s) XR KNEE RT 3V AP,LAT,YVONNE EXAM: XR KNEE RT 3V AP,LAT,YVONNE CLINICAL HISTORY: fall, twisted. TECHNIQUE: 2D digital imaging was performed of the right knee. Four views obtained. AP, lateral and PA tunnel views were obtained. COMPARISON: CR RIGHT KNEE 3 VIEWS from 07/19/2014 FINDINGS: BONES: No acute fracture is present. No bony destructive lesion is seen. JOINTS: The knee is normally aligned. No joint effusion is seen. SOFT TISSUE: Normal. IMPRESSION: Unremarkable radiographs of the right knee. DATA REPOSITORY: RADIATION DOSE DELIVERED:
--- NOTE | 2024-04-21 10:26 | DI.CT_ITS ---
Exam(s) CT SACRUM AND COCCYX WO EXAM: CT SACRUM AND COCCYX WO CLINICAL HISTORY: fall on stairs. TECHNIQUE: Imaging Protocol: Axial computed tomography images with coronal and sagittal reformatted images were created and reviewed. COMPARISON: CT CT CHEST PE ABD PELVIS W from 10/06/[address] ABDOMEN PELVIS W from 02/22/2023 CR XR SACRUM COCCYX from 04/21/2024 FINDINGS: Bones: The osseous structures and articular surfaces are intact. Bony alignment is satisfactory. N o cellulitic or osteomyelitic changes are identified. There is no evidence of joint space narrowing or cystic degeneration seen. No lytic or sclerotic lesions are identified. Soft Tissues: Normal. IMPRESSION: No acute fracture or dislocation is present. RADIATION DOSE DELIVERED: 327.85mGy.cm Total DLP 327.85mGy.cmTotal DLP 327.85mGy.cm Total DLP DATA REPOSITORY: All CT scans at this facility are submitted to the National Radiology Data Registry (NRDR) Dose Index Registry (DIR) with the [employer] (A[employer]). RADIATION OPTIMIZATION: All CT scans at this facility use at least one of these dose optimization te chniques: automated exposure control; mA and/or kV adjustment per patient size (includes targeted exa ms where dose is matched to clinical indication); or iterative reconstruction.
== END 2024-04-21 11:28 | disposition home or self-care (01) ==
PROVIDERS: Emergency Provider Physician Assistant; PCP Nurse Practitioner Family
DX: S83.411A Sprain of medial collateral ligament of right knee, initial encounter (principal); M54.50 Low back pain, unspecified; W10.8XXA Fall (on) (from) other stairs and steps, initial encounter; Y93.01 Activity, walking, marching and hiking
CPT/HCPCS: 73562; 81025; 99285; 72110; 72192; 72220

== ENCOUNTER 2024-04-24 21:40 | Emergency (ER) | payer MEDICAID, SELFPAY ==
[2024-04-24 21:44] VITALS: BP 125/84; PULSE 93; RESP 16; TEMP 37; O2SAT 98
--- NOTE | 2024-04-24 22:03 | W.ED.GENAD ---
Discharge Plan Disposition Patient Disposition: Home Condition: Stable Discharge Details Clinical Impression: Numbness of feet Primary Care Provider: JOSE ALEJANDRO MARIE ED Provider: Hugo Sue Home Meds and New Rx's Prescriptions: Continued albuterol sulfate 1.25 mg/3 mL Solution For Nebulization 1.25 mg continuous nebulization PRN PRN albuterol sulfate [Ventolin HFA] 60 PUFF HFA aerosol inhaler 2 puff Inhalation PRN PRN ibuprofen 600 mg tablet 600 mg PO TID Qty: 15 0RF ondansetron 4 mg tablet,disintegrating 4 mg PO TID PRN Patient Comments: DISSOLVE ONE TABLET ON THE TONGUE EVERY 8 HOURS NEEDED FOR 5 DAYS Discharge Instructions Additional Instructions: You could have some nerve irritation from the injury and also from the brace. Try wearing the brace looser if possible. Keeping some weight off your leg might help as well. If you are still having this issue in a week follow-up with your primary care provider Return to the emergency department if you feel more ill, have severe worsening pain or your leg becomes diffusely swollen HPI General Date/Time Provider Initiated Documentation: 04/24/24 21:48. Limitations to Documentation: no limitations. Information obtained by: patient. History of Present Illness 23 year old F presents to the emergency department with the chief complaint of right foot numbness, described as mild, and is localized to the right and lower extremity. Patient reports no radiation. and it has been constant. No relieving factors improve symptom(s), No exacerbating factors reported . Patient notes denies chest pain and shortness of breath. Patient did receive the following treatments prior to arrival, none Related Data Home Medications ?Medication ?Instructions ?Recorded ?Confirmed albuterol sulfate 90 mcg/actuation 2 puff inhalation PRN PRN 07/05/16 04/24/24 aerosol inhaler (Ventolin HFA) albuterol sulfate 1.25 mg/3 mL 1.25 mg continuous nebulization 01/15/21 04/24/24 solution for nebulization PRN PRN ibuprofen 600 mg tablet 600 mg PO TID #15 tabs 09/10/23 04/24/24 ondansetron 4 mg disintegrating 4 mg PO TID PRN 04/21/24 04/24/24 tablet Previous Rx's ?Medication ?Instructions ?Recorded ibuprofen 600 mg tablet 600 mg PO TID #15 tabs 09/10/23 Allergies Allergy/AdvReac Type Severity Reaction Status Date / Time omeprazole AdvReac Intermediate Skin Rash Verified 04/24/24 21:50 and diarrhea ketorolac AdvReac anxious Verified 04/24/24 21:50 promethazine AdvReac panic Verified 04/24/24 21:50 enviromental Allergy Mild Other (See Uncoded 04/24/24 21:50 Comment) General Stated Complaint: Orthopedic MARY JANE: 4 Review of Systems All systems reviewed & are unremarkable except as noted in HPI and below Constitutional Constitutional: Denies chills, Denies fever(s) and Denies weakness Cardiovascular Cardiovascular: Denies chest pain and Denies dyspnea Respiratory Respiratory: Denies cough and Denies dyspnea Gastrointestinal Gastrointestinal: Denies abdominal pain, Denies nausea and Denies vomiting Musculoskeletal Musculoskeletal: Denies joint swelling and Reports numbness Neurologic Neurologic: Reports numbness and Denies weakness Exam Const General: no acute distress Orientation: alert HENMT Head: normal to inspection Ears: external ears normal General nose exam: external nose normal Mouth: moist mucous membranes Eyes General: appearance normal, both eyes and all related structures Neck Neck: normal visual inspection Resp Effort & Inspection: normal respiratory effort and able to speak in complete sentences Cardio Rate: regular rate Skin General skin exam: no ecchymosis and no erythema Neuro General: patient alert and patient oriented x3 Extrem General: full ROM and capillary refill normal Psych Mental Status: mental status grossly normal Course Vital Signs Vital signs: Vital Signs Temperature 37.0 C 04/24/24 21:44 Pulse 93 H 04/24/24 21:44 Respiratory Rate 16 04/24/24 21:44 Blood Pressure 125/84 04/24/24 21:44 Pulse Oximetry 98 04/24/24 21:44 Temperature 37.0 C 04/24/24 21:44 Temperature Source Oral 04/24/24 21:44 Pulse 93 H 04/24/24 21:44 Respiratory Rate 16 04/24/24 21:44 Blood Pressure 125/84 04/24/24 21:44 Blood Pressure Position Sitting 04/24/24 21:44 Pulse Oximetry 98 04/24/24 21:44 Oxygen Delivery Method Room Air 04/24/24 21:44 Oxygen Flow Rate 0 04/24/24 21:44 Medical Decision Making 23-year-old female who was seen earlier this week after she fell on stairs and twisted her right knee comes in with subjective numbness in the lateral portion of her right foot. She denies any severe pain, fevers, chills. Her right knee is not currently swollen and she has good range of motion. She still some tenderness over the medial portion of her knee. She had x-rays done that did not show any concerning findings in the provider that she could have had an MCL injury. Her foot is not swollen nor is her leg, she has no tenderness in the calf. Full range of motion of the ankle, intact 2+ DP and PT pulses. She is able to feel the foot but localizes on the distal lateral foot and area where she thinks it feels number. She has intact reflexes. I do not feel based on her exam she has a significant neurological disorder, could potentially have a peroneal nerve injury but based on her exam feel this is less likely. I advised to try and keep weight off her leg and to wear her brace looser. She will follow-up with her PCP if not improving and return precautions given Differential Diagnosis Differential Diagnosis: Neuropathy, peroneal nerve injury. Quality:SDOH Health Related Social Needs: No Data to Display [facility] All Active Problems (Updated 04/24/24 @ 22:07 by Hugo Sue MD) Numbness of feet (Acute) Fall (Acute) Contusion (Acute) Back pain (Acute) Acute knee pain (Acute) MCL sprain of right knee (Acute) Abdominal pain, RUQ (Acute) Strain of left biceps (Acute) Insomnia (Acute) Medical History Migraine headache without aura Asthma Anxiety Surgical History H/O esophagogastroduodenoscopy Family History Mother Heart disease Stroke Social History Smoking/Tobacco Use Status: Never Smoking risk assessment performed?: Yes Alcohol Intake: never Drug use: Never Substance use type: does not use Household members: family Housing: apartment Number of Children: 0 Education Level: high school current occupation: [employer] 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
== END 2024-04-24 23:16 | disposition home or self-care (01) ==
PROVIDERS: Emergency Provider Emergency Medicine; PCP Nurse Practitioner Family
DX: R20.0 Anesthesia of skin (principal)
CPT/HCPCS: 99281; 99282

== ENCOUNTER 2024-10-24 19:25 | Outpatient (REF) | payer MEDICAID, SELFPAY ==
[2024-10-24 15:50] LABS: Abs Immature Grans 0.01 10^3/uL (0.0-0.06); HCT 43.0 % (36.0-46.0); HGB 14.6 g/dL (11.2-15.7); Immature Grans % 0.2 %; MCH 28.7 pg (27.0-33.0); MCHC 34.0 % (32.0-36.0); MCV 85 fL (80-95); MPV 9.4 fL (8.0-11.0); Platelet Count 285 10^3/uL (130-400); RBC 5.08 10^6/uL (3.93-5.22); RDW 11.6 % (11.7-14.6); RDW-SD 35.6 fL; WBC 4.67 10^3/uL (4.4-10.8)
[2024-10-24 16:13] LABS: Hemoglobin A1C 4.8 % (<5.7)
[2024-10-24 16:14] LABS: ALT 26 U/L (14-59); AST 22 U/L (15-37); Albumin 4.2 g/dL (3.4-5.0); Alkaline Phosphatase 80 U/L (46-116); Anion Gap 10.6 mmol/L (3-11); BUN 12 mg/dL (7-18); Bilirubin, Total 0.4 mg/dL (0.2-1.0); CO2 26.4 mmol/L (21.0-32.0); Calcium 9.1 mg/dL (8.5-10.1); Chloride 102 mmol/L (98-107); Estimated GFR 130.88 (mL/min/1.73m2); Glucose 89 mg/dL (74-106); Potassium 4.2 mmol/L (3.5-5.1); Sodium 139 mmol/L (136-145); TSH (W/Ref FT4) 1.23 uIU/mL (0.36-3.74); Total Protein 7.9 g/dL (6.4-8.2)
== END 2024-10-24 19:26 | disposition home or self-care (01) ==
LOC: NCHCN 19:25
PROVIDERS: PCP Nurse Practitioner Family; Visit Provider Student in an Organized Health Care Education/Training Program
DX: L83 Acanthosis nigricans (principal); R63.5 Abnormal weight gain
CPT/HCPCS: 80053; 83036; 84443; 85025

== ENCOUNTER 2024-10-29 15:26 | Outpatient (REF) | payer MEDICAID, SELFPAY ==
--- NOTE | 2024-10-29 15:30 | PAPFT_PTH ---
PATIENT: Clare Crook LOC: [facility] U#:[id number] AGE/SX: 23/F ROOM: RE10/29/[address]: Mirtha Sue NP : 2000 BED: DIS: 10/29/2024 SPEC #: [id number] RECD: 10/29/24 18:56 STATUS: YUMIKO REKirit #: [id number] MARELY: 10/29/24 15:[address]: Mirtha Sue NP DEPT: [facility] Cytology RECD BY: Kim Au ENTERED: 10/29/24 18:57 SP TYPE: PAPFT OTHR DR: JOSE ALEJANDRO MARIE NP Tissues: 1 - CX/ENDOCX FOR PAP SMEARS Procedures: PAP THIN PREP/UVM Screening Comments: [id number]
== END 2024-10-29 15:27 | disposition home or self-care (01) ==
LOC: LBN 15:26
PROVIDERS: PCP Nurse Practitioner Family; Visit Provider Nurse Practitioner Women's Health
DX: Z12.4 Encounter for screening for malignant neoplasm of cervix (principal)
CPT/HCPCS: 88142

== ENCOUNTER 2025-02-02 09:11 | Outpatient (CLI) | payer MEDICAID, SELFPAY ==
[2025-02-02 17:28] LABS: LH 2.6 mIU/mL (See Note)
[2025-02-02 17:31] LABS: FSH 10.2 mIU/mL (See Note)
[2025-02-07 13:54] LABS: Testosterone, Free 0.63 ng/dL (<0.13-1.08)
== END 2025-02-02 09:12 | disposition home or self-care (01) ==
LOC: LBO 09:11
PROVIDERS: PCP Nurse Practitioner Family; Visit Provider Student in an Organized Health Care Education/Training Program
DX: N92.6 Irregular menstruation, unspecified (principal); E66.01 Morbid (severe) obesity due to excess calories
CPT/HCPCS: 36415; 82533; 82627; 83498; 84402; 84403; 82670; 83001; 83002; 84146; 84270

== ENCOUNTER 2025-03-25 16:06 | Outpatient (REF) | payer MEDICAID, SELFPAY | END 2025-03-25 16:07 | disposition home or self-care (01) | LOC: LBN 16:06 | PROVIDERS: PCP Nurse Practitioner Family; Visit Provider Physician Assistant Medical | DX: R30.0 Dysuria (principal) | CPT/HCPCS: 87077; 81015; 87086; 87186 ==